=== PATIENT | female | born 1935 | race Caucasian/White ===

== ENCOUNTER 2018-12-06 09:33 | Inpatient (IN) ==
[2018-12-06] MEDS ORDERED: ACETAMINOPHEN 1,000 MG/100 ML VIAL IV ONE (10:02)
[2018-12-06] MEDS ORDERED: SODIUM CHLORIDE 0.9% 500 ML IV SCH (10:15)
[2018-12-06 10:20] LABS: Basophils # (auto) 0.02 K/uL (0-0.2); Basophils % (auto) 0.3 %; Hematocrit (blood only) 26.6 % (37-47); Hemoglobin 8.5 g/dL (12.0-16.0); Immature Granulocytes # (auto) 0.02 K/uL (0.00-0.02); Immature Granulocytes % (auto) 0.3 %; Lymphocytes # (auto) 0.75 K/uL (1.2-3.4); Lymphocytes % (auto) 9.5 %; Mean Corpuscular Volume 94.7 fL (80-100); Mean Platelet Volume 9.7 fL (7.4-10.4); Monocytes # (auto) 0.43 K/uL (0.11-0.59); Monocytes % (auto) 5.4 %; Neutrophils # (auto) 6.68 K/uL (1.4-6.5); Neutrophils % (auto) 84.5 %; Platelet Count 195 K/uL (130-400); RDW Coefficient of Variation 12.7 % (11.5-14.5); Red Blood Count 2.81 M/uL (4.2-5.4)
[2018-12-06 10:36] LABS: Prothrombin Time 9.8 Seconds (9.0-12.0)
[2018-12-06 10:40] LABS: Alanine Aminotransferase 11 U/L (12-78); Albumin Level 3.5 gm/dl (3.4-5.0); Aspartate Aminotransferase 10 U/L (15-37); BUN Creatinine Ratio 13.8 (10-20); Bilirubin Direct 0.2 mg/dl (0-0.2); Blood Urea Nitrogen 19 mg/dl (7-18); Calcium 9.3 mg/dl (8.5-10.1); Carbon Dioxide 32 mmol/L (21-32); Chloride 103 mmol/L (98-107); Creatinine Clr Calc Pharmacy 30.2 ml/min; Est GFR (African American) 41.2; Est GFR (Non-African American) 35.6; Glucose 145 mg/dl (70-99); Magnesium 2.5 mg/dl (1.8-2.4); Potassium 3.6 mmol/L (3.5-5.1); Sodium 138 mmol/L (136-145)
--- NOTE | 2018-12-06 10:43 | XRay Report ---
XR chest 1V portable CLINICAL HISTORY: Chest Pain COMPARISON STUDY: Chest radiograph September 15, 2018. FINDINGS: Lung volumes are mildly diminished. There has been interval development of mild interstitia l pulmonary edema. There is a trace right pleural effusion. There is no pneumothorax. Mild cardiomega ly is noted. There is mild bibasilar opacity. IMPRESSION: Interval development of mild pulmonary edema, trace right pleural effusion and mild bibasilar opaciti es. Electronically signed by: Ashvin Nassar M.D. 12/06/2018 10:42 AM
[2018-12-06 10:49] LABS: Alkaline Phosphatase 107 U/L (45-117); Bilirubin,Total 0.7 mg/dl (0.2-1); Globulin 3.6 gm/dl (2.5-4.0); NT Pro B Type Natriuretic Pept 4277 pg/ml (0-1800); Phosphorus 3.1 mg/dl (2.5-4.9); Total Protein 7.1 gm/dl (6.4-8.2); Troponin I < 0.015 ng/ml (0-0.045)
[2018-12-06 10:52] LABS: RBC Morphology Unremarkable
[2018-12-06 11:10] LABS: Influenza A virus by PCR Neg for Influ A (Neg); Influenza B virus by PCR Neg for Influ B (Neg)
[2018-12-06] MEDS ORDERED: FUROSEMIDE 40 MG/4 ML VIAL IV STA (12:06)
[2018-12-06] MEDS ORDERED: cloNIDine HCl 0.1 MG TAB PO PRN (12:41)
[2018-12-06 13:05] LABS: Iron 34 mcg/dl (35-150); Transferrin 223 mg/dl (200-360)
[2018-12-06] MEDS ORDERED: LISINOPRIL 10 MG TAB PO SCH (14:10)
[2018-12-06] MEDS ORDERED: METOPROLOL SUCC 50MG EXT REL TAB PO SCH (14:10)
[2018-12-06] MEDS ORDERED: ONDANSETRON INJ 2 MG/ML 2 ML VIAL IV PRN (14:10)
[2018-12-06] MEDS ORDERED: ACETAMINOPHEN 325 MG TAB PO PRN (14:10)
[2018-12-06] MEDS ORDERED: FLUTICASONE PROPIONATE NA SPR 16 GM BTL PRN (14:10)
--- NOTE | 2018-12-06 15:27 | Emergency Department Note ---
Entered by Eleni Muñoz acting as a scribe for History of Present Illness General Chief complaint: Weakness Stated complaint: HEADACHE ON LEFT SIDE BEHIND EAR,WEAK,SOB,NO APPET Time Seen by Provider: 12/06/18 09:50 Source: patient History of Present Illness Onset (ago): day(s) 2 Location: upper extremity and lower extremity Pain Consistency: + constant Maximum Pain Intensity: 8 Quality: + other (weakness) Associated symptoms: + denies other symptoms (congestion, diarrhea, urinary symptoms), + fever/chills (Positive chills. Negative fever.), + headaches and + other (increased leg swelling, chronic constipation); no cough and no nausea/ vomiting The patient is an 83 year old female who presents to the Emergency Room with complaints of constant weakness starting 2 days ago. The patient states that she has been feeling weak for 2 days. She states that she called her PCP for an appointment today and they recommended that she come to the ED. She states that she called her daughter and she had to assist her to get to the car. The patient complains of chills, increased leg swelling, and a left sided headache. She notes that she deals with chronic constipation. She states that she has to take a laxative every night. She reports that her last bowel movement was yesterday. The patient denies fever, cough, congestion, nausea, vomiting, diarrhea, and urinary symptoms. The patient notes a history of shingles that went across her abdomen years ago. Home Medications Home Medications Medication Instructions Recorded Confirmed Type aspirin 81 mg PO QPM 09/15/18 12/06/18 History fluticasone 2 spray INTRANASAL DAILY PRN 09/15/18 12/06/18 History iron,carbonyl-vitamin C [Vitron-C] 1 tab PO QAM 09/15/18 12/06/18 History meclizine 12.5 mg PO TID PRN 09/15/18 12/06/18 History metoprolol succinate 50 mg PO QAM 09/15/18 12/06/18 History nitroglycerin 0.4 mg SUBLINGUAL UD PRN 09/15/18 12/06/18 History rosuvastatin 40 mg PO QPM 09/15/18 12/06/18 History cyanocobalamin (vitamin B-12) 1,000 mcg PO QAM 09/20/18 12/06/18 History lisinopril 10 mg PO QAM 09/20/18 12/06/18 History Allergies Allergy/AdvReac Type Severity Reaction Status Date / Time No Known Allergies Allergy Unknown Verified 12/06/18 10:22 Past Med/Surg History Medical History Encounter for pre-operative examination Diarrhea (Acute) Weight loss (Acute) Hypokalemia Hypophosphatemia Hypomagnesemia Chest pain at rest (Acute) Acute renal failure (ARF) (Acute) Chest pain (Acute) DVT prophylaxis (Acute) YUMIKO (acute kidney injury) (Acute) CKD (chronic kidney disease) stage 3, GFR 30-59 ml/min (Chronic) DM type 2 (diabetes mellitus, type 2) (Chronic) CAD (coronary artery disease) (Chronic) Dyslipidemia (Chronic) Hypertension (Chronic) Osteoarthritis (Chronic) Glaucoma (Chronic) Anemia Kidney stones Surgical History History of tonsillectomy and adenoidectomy (Chronic) History of cholecystectomy (Chronic) History of cataract surgery (Chronic) bilt eyes History of appendectomy (Chronic) H/O vein stripping (Chronic) right leg History of bilateral tubal ligation History of cardiac cath 2008 @ [facility]--follows with Dr. Her History of heart artery stent 2008 @ [facility] History of surgery open incision kidney stone removal History of total abdominal hysterectomy and bilateral salpingo-oophorectomy Status post glaucoma surgery bilt eyes Family History Brother Family history of diabetes mellitus multiple Sister Family history of diabetes mellitus multiple Mother Family history of diabetes mellitus Father Family history of diabetes mellitus Other No significant family history Social History Current Living Situation: Alone Other Information That Helps Us Care for You: No Feels Safe at Home: Yes Safety Concerns: Feels Safe At This Time Smoking Status: Never smoker Second Hand Exposure: No Hx Alcohol Use: No Hx Substance Use: No Beliefs That Will Affect Care: None Preferred Language: [place] [employer] Required: No Review of Systems See HPI for pertinent positives & negatives. and A total of 10 systems reviewed and were otherwise negative Physical Exam Vital Signs Vital Signs - 24 hr 12/06/18 09:43 12/06/18 10:12 12/06/18 10:22 Temperature 36.3 C L Temperature Source Oral Sepsis Recent Fever Within 48 Hours No Sepsis New/Unexplained Change in Mental Status No Sepsis Action Taken by Nursing No Action Required Pulse Rate 84 79 Pulse Rate [Right Finger] 79 Pulse Rhythm Regular Pulse Rhythm [Right Finger] Regular Pulse Strength Pulse Strength [Right Finger] Normal Respiratory Rate 18 16 16 Respiratory Effort / Characteristics Non-Labored Respiratory Depth Normal Normal Respiratory Pattern Regular Blood Pressure 205/83 H Blood Pressure [Left Arm] 167/96 H Blood Pressure Mean 123 Blood Pressure Mean [Left Arm] 119 Blood Pressure Position Sitting Blood Pressure Position [Left Arm] Lying Pulse Oximetry 98 95 97 Oxygen Delivery Method Room Air Room Air Room Air 12/06/18 12:07 12/06/18 12:34 12/06/18 14:10 Temperature 36.6 C Temperature Source Oral Sepsis Recent Fever Within 48 Hours Sepsis New/Unexplained Change in Mental Status Sepsis Action Taken by Nursing Pulse Rate Pulse Rate [Right Finger] 77 82 77 Pulse Rhythm Pulse Rhythm [Right Finger] Regular Pulse Strength Pulse Strength [Right Finger] Normal Respiratory Rate 16 16 16 Respiratory Effort / Characteristics Non-Labored Spontaneous Respiratory Depth Normal Respiratory Pattern Regular Blood Pressure Blood Pressure [Left Arm] 179/85 H 187/90 H 184/73 H Blood Pressure Mean Blood Pressure Mean [Left Arm] 116 122 110 Blood Pressure Position Blood Pressure Position [Left Arm] Lying Pulse Oximetry 94 94 96 Oxygen Delivery Method Room Air Room Air Room Air 12/06/18 14:55 12/06/18 16:00 12/06/18 16:42 Temperature 36.7 C Temperature Source Oral Sepsis Recent Fever Within 48 Hours Sepsis New/Unexplained Change in Mental Status Sepsis Action Taken by Nursing Pulse Rate 74 Pulse Rate [Right Finger] 76 75 Pulse Rhythm Pulse Rhythm [Right Finger] Regular Pulse Strength Pulse Strength [Right Finger] Normal Respiratory Rate 18 Respiratory Effort / Characteristics Respiratory Depth Respiratory Pattern Blood Pressure Blood Pressure [Left Arm] 179/83 H 161/75 H Blood Pressure Mean Blood Pressure Mean [Left Arm] 115 103 Blood Pressure Position Blood Pressure Position [Left Arm] Sitting Lying Pulse Oximetry 98 Oxygen Delivery Method Room Air 12/06/18 18:30 12/06/18 19:05 12/06/18 19:19 Temperature 36.7 C 36.7 C 36.6 C Temperature Source Oral Oral Oral Sepsis Recent Fever Within 48 Hours Sepsis New/Unexplained Change in Mental Status Sepsis Action Taken by Nursing Pulse Rate 78 Pulse Rate [Right Finger] 79 Pulse Rhythm Regular Pulse Rhythm [Right Finger] Regular Pulse Strength Normal Pulse Strength [Right Finger] Normal Respiratory Rate 18 Respiratory Effort / Characteristics Non-Labored Respiratory Depth Normal Respiratory Pattern Regular Blood Pressure 177/74 H 171/77 H Blood Pressure [Left Arm] 164/84 H Blood Pressure Mean 108 108 Blood Pressure Mean [Left Arm] 110 Blood Pressure Position Lying Blood Pressure Position [Left Arm] Lying Pulse Oximetry 96 95 Oxygen Delivery Method Room Air 12/06/18 19:22 12/06/18 19:37 12/06/18 19:38 Temperature 36.8 C 36.2 C L 37.0 C Temperature Source Oral Oral Oral Sepsis Recent Fever Within 48 Hours Sepsis New/Unexplained Change in Mental Status Sepsis Action Taken by Nursing Pulse Rate 76 92 H Pulse Rate [Right Finger] 96 H Pulse Rhythm Regular Regular Pulse Rhythm [Right Finger] Pulse Strength Normal Normal Pulse Strength [Right Finger] Respiratory Rate 18 Respiratory Effort / Characteristics Non-Labored Respiratory Depth Normal Respiratory Pattern Blood Pressure 158/72 H 158/94 H Blood Pressure [Left Arm] 158/72 H Blood Pressure Mean 100 115 Blood Pressure Mean [Left Arm] 100 Blood Pressure Position Blood Pressure Position [Left Arm] Sitting Pulse Oximetry 94 Oxygen Delivery Method Room Air 12/06/18 20:07 Temperature 36.7 C Temperature Source Oral Sepsis Recent Fever Within 48 Hours Sepsis New/Unexplained Change in Mental Status Sepsis Action Taken by Nursing Pulse Rate Pulse Rate [Right Finger] Pulse Rhythm Pulse Rhythm [Right Finger] Pulse Strength Pulse Strength [Right Finger] Respiratory Rate Respiratory Effort / Characteristics Respiratory Depth Respiratory Pattern Blood Pressure 169/77 H Blood Pressure [Left Arm] Blood Pressure Mean 107 Blood Pressure Mean [Left Arm] Blood Pressure Position Lying Blood Pressure Position [Left Arm] Pulse Oximetry Oxygen Delivery Method GENERAL: Awake, alert, fatigued appearing, in no distress HENT: Normocephalic, atraumatic. Oropharynx with dry mucous membranes and otherwise unremarkable. EYES: Normal conjunctiva. Sclera non-icteric. NECK: Supple. No nuchal rigidity. FROM. No JVD. RESPIRATORY: Diminished at bases and otherwise clear to auscultation. CARDIAC: Regular rate, normal rhythm. Extremities warm and well perfused. Pulses equal. ABDOMEN: Soft, non-distended. No tenderness to palpation. No rebound or guarding. No masses. RECTAL: Deferred. MUSCULOSKELETAL: Chest examination reveals no tenderness. The back is symmetrical on inspection without obvious abnormality. There is no CVA tenderness to palpation. No joint edema. LOWER EXTREMITIES: Calves are equal size bilaterally and non-tender. Scant lower extremity edema. No discoloration. NEURO: Normal sensorium. No sensory or motor deficits noted. 5/5 strength and SILT x4 extremities. Normal cerebellar function including finger to nose. SKIN: No rash or jaundice noted. Course 0955: Past medical records reviewed. The patient was evaluated in room C2B, and a complete history and physical examination were performed. 1153: I reevaluated the patient and updated her and her family on her test results. I disucssed the treatment plan with them. They verbally agree and understand. 1155: I paged the hospitalist at this time. 1210: I reviewed the patient's case with [facility] He will evaluate the patient for further management. Consultations Consultation #1: I reviewed the patient's case with [facility]. He will evaluate the patient for further management. Time: 12:10 Administered Medications Acetaminophen (Tylenol) 650 mg PO Q4H PRN PRN Reason: Pain or Fever Stop: 01/05/19 14:09 Last Admin: 12/06/18 18:06 Dose: 650 mg Pantoprazole Sodium 40 mg/ (Syringe) 10 mls @ 5 mls/min IV BID [facility] Stop: 01/05/19 13:59 Last Admin: 12/06/18 17:54 Dose: 5 mls/min Furosemide 20 mg/ Syringe 2 mls @ 4 mls/min IV TODAY@1645 [facility] Stop: 12/06/18 23:59 Last Admin: 12/06/18 17:55 Dose: 4 mls/min Lisinopril (Zestril) 10 mg PO QAM [facility] Stop: 01/05/19 14:09 Last Admin: 12/06/18 15:06 Dose: 10 mg Metoprolol Succinate (Toprol Xl) 50 mg PO QAM [facility] Stop: 01/05/19 14:09 Last Admin: 12/06/18 15:06 Dose: 50 mg Miscellaneous (Order Awaiting Action) 1 ea N/A QS [facility] Stop: 01/05/19 15:59 Last Admin: 12/06/18 17:55 Dose: Not Given Discontinued Medications Furosemide (Lasix) 20 mg IV NOW STA Stop: 12/06/18 12:07 Last Admin: 12/06/18 12:34 Dose: 20 mg Sodium Chloride (Nss) 500 mls @ 999 mls/hr IV .Q31M [facility] Stop: 12/06/18 10:45 Last Infusion: 12/06/18 10:44 Dose: 0 mls/hr Admin: 12/06/18 10:09 Dose: 999 mls/hr Acetaminophen (Ofirmev) 1,000 mg in 100 mls @ 400 mls/hr IV NOW ONE Stop: 12/06/18 10:16 Last Infusion: 12/06/18 10:27 Dose: 0 mls/hr Admin: 12/06/18 10:08 Dose: 400 mls/hr Medical Decision Making Differential Diagnosis Differential Diagnoses: Etiologies such as metabolic, infection, hyp/hyperglycemia, electrolyte abnormalities, cardiac sources, intracerebral event, toxicologic, neurologic, as well as others were entertained. Medical Records Attestation: I reviewed the patient's medical records. Home Medications Current Medication List: was personally reviewed by me Laboratory Data Attestation: I reviewed the patient's lab results. Result diagrams: 12/06/18 10:10 12/06/18 10:10 Lab Results 12/06/18 12/06/18 12/06/18 Range/Units 10:10 10:10 10:10 WBC 7.90 (4.8-10.8) K/uL RBC 2.81 L (4.2-5.4) M/uL Hgb 8.5 L (12.0-16.0) g/dL Hct 26.6 L (37-47) % MCV 94.7 (80-100) fL MCH 30.2 (25-34) pg MCHC 32.0 (32-36) g/dL RDW Std Deviation 44.0 (36.4-46.3) fL RDW Coeff of Blanca 12.7 (11.5-14.5) % Plt Count 195 (130-400) K/uL MPV 9.7 (7.4-10.4) fL Immature Gran % (Auto) 0.3 % Neut % (Auto) 84.5 % Lymph % (Auto) 9.5 % [place] % (Auto) 5.4 % Eos % (Auto) 0.0 % Baso % (Auto) 0.3 % Immature Gran # (Auto) 0.02 (0.00-0.02) K/uL Neut # (Auto) 6.68 H (1.4-6.5) K/uL Lymph # (Auto) 0.75 L (1.2-3.4) K/uL [place] # (Auto) 0.43 (0.11-0.59) K/uL Eos # (Auto) 0.00 (0-0.5) K/uL Baso # (Auto) 0.02 (0-0.2) K/uL RBC Morphology Unremarkable PT 9.8 (9.0-12.0) Seconds INR 1.0 (0.9-1.1) Sodium 138 (136-145) mmol/L Potassium 3.6 (3.5-5.1) mmol/L Chloride 103 (98-107) mmol/L Carbon Dioxide 32 (21-32) mmol/L Anion Gap 3.0 (3-11) BUN 19 H (7-18) mg/dl Creatinine 1.37 H (0.6-1.2) mg/dl Est Cr Clr Drug Dosing 30.2 ml/min Est GFR ( Amer) 41.2 Est GFR (Non-Af Amer) 35.6 BUN/Creatinine Ratio 13.8 (10-20) Glucose 145 H (70-99) mg/dl Calcium 9.3 (8.5-10.1) mg/dl Phosphorus 3.1 (2.5-4.9) mg/dl Magnesium 2.5 H (1.8-2.4) mg/dl Iron (35-150) mcg/dl TIBC (250-450) mcg/dl Transferrin (200-360) mg/dl Total Bilirubin 0.7 (0.2-1) mg/dl Direct Bilirubin 0.2 (0-0.2) mg/dl AST 10 L (15-37) U/L ALT 11 L (12-78) U/L Alkaline Phosphatase 107 (45-117) U/L Troponin I < 0.015 (0-0.045) ng/ml NT-Pro-B Natriuret Pep 4277 H (0-1800) pg/ml Total Protein 7.1 (6.4-8.2) gm/dl Albumin 3.5 (3.4-5.0) gm/dl Globulin 3.6 (2.5-4.0) gm/dl Albumin/Globulin Ratio 1.0 (0.9-2) Lipase 143 (73-393) U/L TSH 1.500 (0.300-4.500) uIu/ml Urine Color Urine Appearance (Clear) Urine pH (4.5-7.5) Ur Specific Altura (1.000-1.030) Urine Protein (Negative) Urine Glucose (UA) (Negative) Urine Ketones (Negative) Urine Blood (Negative) Urine Nitrite (Negative) Urine Bilirubin (Negative) Urine Urobilinogen (Negative) Ur Leukocyte Esterase (Negative) Urine WBC (Auto) (0-5) /hpf Urine RBC (Auto) (0-4) /hpf U Hyaline Cast (Auto) (0-5) /lpf U Epithel Cells (Auto) (0-5) /lpf Urine Bacteria (Auto) (Negative) Influenza Type A (PCR) (Neg) Influenza Type B (PCR) (Neg) Blood Type Blood Type Recheck Antibody Screen Crossmatch 12/06/18 12/06/18 12/06/18 Range/Units 10:10 10:20 13:23 WBC (4.8-10.8) K/uL RBC (4.2-5.4) M/uL Hgb (12.0-16.0) g/dL Hct (37-47) % MCV (80-100) fL MCH (25-34) pg MCHC (32-36) g/dL RDW Std Deviation (36.4-46.3) fL RDW Coeff of Blanca (11.5-14.5) % Plt Count (130-400) K/uL MPV (7.4-10.4) fL Immature Gran % (Auto) % Neut % (Auto) % Lymph % (Auto) % [place] % (Auto) % Eos % (Auto) % Baso % (Auto) % Immature Gran # (Auto) (0.00-0.02) K/uL Neut # (Auto) (1.4-6.5) K/uL Lymph # (Auto) (1.2-3.4) K/uL [place] # (Auto) (0.11-0.59) K/uL Eos # (Auto) (0-0.5) K/uL Baso # (Auto) (0-0.2) K/uL RBC Morphology PT (9.0-12.0) Seconds INR (0.9-1.1) Sodium (136-145) mmol/L Potassium (3.5-5.1) mmol/L Chloride (98-107) mmol/L Carbon Dioxide (21-32) mmol/L Anion Gap (3-11) BUN (7-18) mg/dl Creatinine (0.6-1.2) mg/dl Est Cr Clr Drug Dosing ml/min Est GFR ( Amer) Est GFR (Non-Af Amer) BUN/Creatinine Ratio (10-20) Glucose (70-99) mg/dl Calcium (8.5-10.1) mg/dl Phosphorus (2.5-4.9) mg/dl Magnesium (1.8-2.4) mg/dl Iron 34 L (35-150) mcg/dl TIBC 284 (250-450) mcg/dl Transferrin 223 (200-360) mg/dl Total Bilirubin (0.2-1) mg/dl Direct Bilirubin (0-0.2) mg/dl AST (15-37) U/L ALT (12-78) U/L Alkaline Phosphatase (45-117) U/L Troponin I (0-0.045) ng/ml NT-Pro-B Natriuret Pep (0-1800) pg/ml Total Protein (6.4-8.2) gm/dl Albumin (3.4-5.0) gm/dl Globulin (2.5-4.0) gm/dl Albumin/Globulin Ratio (0.9-2) Lipase (73-393) U/L TSH (0.300-4.500) uIu/ml Urine Color Urine Appearance (Clear) Urine pH (4.5-7.5) Ur Specific Alt[place] (1.000-1.030) Urine Protein (Negative) Urine Glucose (UA) (Negative) Urine Ketones (Negative) Urine Blood (Negative) Urine Nitrite (Negative) Urine Bilirubin (Negative) Urine Urobilinogen (Negative) Ur Leukocyte Esterase (Negative) Urine WBC (Auto) (0-5) /hpf Urine RBC (Auto) (0-4) /hpf U Hyaline Cast (Auto) (0-5) /lpf U Epithel Cells (Auto) (0-5) /lpf Urine Bacteria (Auto) (Negative) Influenza Type A (PCR) Neg for Influ A (Neg) Influenza Type B (PCR) Neg for Influ B (Neg) Blood Type A Positive Blood Type Recheck Antibody Screen NEGATIVE Crossmatch See Detail 12/06/18 12/06/18 Range/Units 16:22 18:25 WBC (4.8-10.8) K/uL RBC (4.2-5.4) M/uL Hgb (12.0-16.0) g/dL Hct (37-47) % MCV (80-100) fL MCH (25-34) pg MCHC (32-36) g/dL RDW Std Deviation (36.4-46.3) fL RDW Coeff of Blanca (11.5-14.5) % Plt Count (130-400) K/uL MPV (7.4-10.4) fL Immature Gran % (Auto) % Neut % (Auto) % Lymph % (Auto) % [place] % (Auto) % Eos % (Auto) % Baso % (Auto) % Immature Gran # (Auto) (0.00-0.02) K/uL Neut # (Auto) (1.4-6.5) K/uL Lymph # (Auto) (1.2-3.4) K/uL [place] # (Auto) (0.11-0.59) K/uL Eos # (Auto) (0-0.5) K/uL Baso # (Auto) (0-0.2) K/uL RBC Morphology PT (9.0-12.0) Seconds INR (0.9-1.1) Sodium (136-145) mmol/L Potassium (3.5-5.1) mmol/L Chloride (98-107) mmol/L Carbon Dioxide (21-32) mmol/L Anion Gap (3-11) BUN (7-18) mg/dl Creatinine (0.6-1.2) mg/dl Est Cr Clr Drug Dosing ml/min Est GFR ( Amer) Est GFR (Non-Af Amer) BUN/Creatinine Ratio (10-20) Glucose (70-99) mg/dl Calcium (8.5-10.1) mg/dl Phosphorus (2.5-4.9) mg/dl Magnesium (1.8-2.4) mg/dl Iron (35-150) mcg/dl TIBC (250-450) mcg/dl Transferrin (200-360) mg/dl Total Bilirubin (0.2-1) mg/dl Direct Bilirubin (0-0.2) mg/dl AST (15-37) U/L ALT (12-78) U/L Alkaline Phosphatase (45-117) U/L Troponin I (0-0.045) ng/ml NT-Pro-B Natriuret Pep (0-1800) pg/ml Total Protein (6.4-8.2) gm/dl Albumin (3.4-5.0) gm/dl Globulin (2.5-4.0) gm/dl Albumin/Globulin Ratio (0.9-2) Lipase (73-393) U/L TSH (0.300-4.500) uIu/ml Urine Color Yellow Urine Appearance Clear (Clear) Urine pH 7.5 (4.5-7.5) Ur Specific [place] 1.009 (1.000-1.030) Urine Protein Negative (Negative) Urine Glucose (UA) Negative (Negative) Urine Ketones Negative (Negative) Urine Blood Negative (Negative) Urine Nitrite Negative (Negative) Urine Bilirubin Negative (Negative) Urine Urobilinogen Negative (Negative) Ur Leukocyte Esterase 1+ H (Negative) Urine WBC (Auto) 1-5 (0-5) /hpf Urine RBC (Auto) 0-4 (0-4) /hpf U Hyaline Cast (Auto) 0 (0-5) /lpf U Epithel Cells (Auto) 20-30 H (0-5) /lpf Urine Bacteria (Auto) Negative (Negative) Influenza Type A (PCR) (Neg) Influenza Type B (PCR) (Neg) Blood Type Blood Type Recheck A Positive Antibody Screen Crossmatch Imaging Data Radiologist's Impression: Radiology results as stated below per my review and the radiologist's interpretation: XR chest 1V portable CLINICAL HISTORY: Chest Pain COMPARISON STUDY: Chest radiograph September 15, 2018. FINDINGS: Lung volumes are mildly diminished. There has been interval development of mild interstitial pulmonary edema. There is a trace right pleural effusion. There is no pneumothorax. Mild cardiomegaly is noted. There is mild bibasilar opacity. IMPRESSION: Interval development of mild pulmonary edema, trace right pleural effusion and mild bibasilar opacities. Electronically signed by: Ashvin Nassar M.D. 12/06/2018 10:42 AM ECG Data Attestation: I personally reviewed and interpreted this ECG as follows: Indication: weakness Rate (beats per minute): 79 Rhythm: normal sinus Findings: + other (normal axis); no ST depression, no ST elevation and no acute ischemic change Blood Pressure Blood Pressure Findings: Elevated blood pressure Blood Pressure Disposition: further management by hospitalist NYASIA Whitaker The patient is a pleasant 83-year-old woman with a past medical history of CKD, stage III, CHF with grade 1 diastolic dysfunction who presents emergency department with generalized weakness and RODRIGUES per hpi. On arrival patient is fatigued appearing but no acute distress, afebrile stable vital signs. On exam the patient has scant bilateral lower extremity edema but otherwise appears clinically dry. EKG without evidence of acute ischemia. Chest x-ray with mild pulmonary edema. WBC normal limits. H/H 8.4/26.6 decreased from 9.4/29.4 in September. Patient denies bloody or black stool. Chemistry without acidosis. Creatinine 1.3 within patient's range of CKD. BNP elevated at 4200 without recent for comparison. Patient feeling improved with resolution of RODRIGUES after IV tylenol and IVF hydration. However, given the patient's evidence of pulmonary edema in the setting of elevated BNP patient was given dose of IV Lasix. The patient's symptoms of generalized weakness may be related to slight worsening of the patient's CHF. Of note, the patient had an echo done on April 28, 2018 with normal EF and a grade 1 diastolic dysfunction. Case was discussed with Dr. Barnes, [facility] hospitalist, who will evaluate the patient for admission. Impression & Plan Generalized weakness, Pulmonary edema Discharge Plan Visit Data *Final* Discharge Date/Time: 12/06/18 13:50 Chief Complaint: Weakness Stated Complaint: HEADACHE ON LEFT SIDE BEHIND EAR,WEAK,SOB,NO APPET ED Provider: Brian Chi Discharge Problem: Generalized weakness, Pulmonary edema Patient Disposition: Admitted As Inpatient Discharge Instructions Interventions: ED Discharge Assessment Last Done: 12/06/18 13:50 The scribe's documentation has been prepared under my direction and personally reviewed by me in its entirety. I confirm that the note above accurately reflects all work, treatment, procedures, and medical decision making performed by me.
[2018-12-06] MEDS ORDERED: FUROSEMIDE 20 MG in SYRINGE 0 ML IV SCH (16:45)
[2018-12-06] MEDS: PANTOprazole 40 MG in SYRINGE 0 ML IV SCH ×2 (17:54→21:48)
--- NOTE | 2018-12-06 18:10 | Cardiology Consultation ---
Date of Consultation December 06, 2018 Assessment & Plan (1) Heart failure with preserved ejection fraction: (2) Mitral regurgitation: Patient tells me she has been seen by the undersigned as an outpatient. Unfortunately, the electronic connection to the [facility] outpatient records is not working at the time of this dictation, so I will need to review her pertinent past outside history in the future. At present she is improved symptomatically having received low-dose furosemide. Continue current dose of diuretic therapy. Her mitral regurgitation is at least moderate in severity. Underlying mitral valve prolapse cannot be excluded based on the transthoracic images. Her mitral regurgitation however may be more severe and perhaps this would account for her severe pulmonary hypertension. Ongoing assessment be made as her hospitalization develops. History of Present Illness Attending Physician: Enoc Barnes MD History of Present Illness Corinna Conteh is an 83 year old female seen in cardiology consultation per the request of Dr Barnes of the [facility] service for the evaluation of shortness of breath and orthopnea. The patient states that she has been having worsening shortness of breath for the last 2 weeks. She describes orthopnea that she has not been able to lie flat to go to sleep and therefore she has been sleeping in her chair. She also notices recent ankle and foot edema for the last few weeks. She received a dose of IV furosemide 20 mg today at 12:06 PM. Is tentatively scheduled to get an additional dose later this afternoon and again tomorrow. Allergies Allergy/AdvReac Type Severity Reaction Status Date / Time No Known Allergies Allergy Unknown Verified 12/06/18 10:22 Home Medications Home Medications Medication Instructions Recorded Confirmed Type aspirin 81 mg PO QPM 09/15/18 12/06/18 History fluticasone 2 spray INTRANASAL DAILY PRN 09/15/18 12/06/18 History iron,carbonyl-vitamin C [Vitron-C] 1 tab PO QAM 09/15/18 12/06/18 History meclizine 12.5 mg PO TID PRN 09/15/18 12/06/18 History metoprolol succinate 50 mg PO QAM 09/15/18 12/06/18 History nitroglycerin 0.4 mg SUBLINGUAL UD PRN 09/15/18 12/06/18 History rosuvastatin 40 mg PO QPM 09/15/18 12/06/18 History cyanocobalamin (vitamin B-12) 1,000 mcg PO QAM 09/20/18 12/06/18 History lisinopril 10 mg PO QAM 09/20/18 12/06/18 History Patient History Medical History Encounter for pre-operative examination Diarrhea (Acute) Weight loss (Acute) Hypokalemia Hypophosphatemia Hypomagnesemia Chest pain at rest (Acute) Acute renal failure (ARF) (Acute) Chest pain (Acute) DVT prophylaxis (Acute) YUMIKO (acute kidney injury) (Acute) CKD (chronic kidney disease) stage 3, GFR 30-59 ml/min (Chronic) DM type 2 (diabetes mellitus, type 2) (Chronic) CAD (coronary artery disease) (Chronic) Dyslipidemia (Chronic) Hypertension (Chronic) Osteoarthritis (Chronic) Glaucoma (Chronic) Anemia Kidney stones Surgical History History of tonsillectomy and adenoidectomy (Chronic) History of cholecystectomy (Chronic) History of cataract surgery (Chronic) bilt eyes History of appendectomy (Chronic) H/O vein stripping (Chronic) right leg History of bilateral tubal ligation History of cardiac cath 2009 @ [facility]--follows with Dr. Her History of heart artery stent 2008 @ [facility] History of surgery open incision kidney stone removal History of total abdominal hysterectomy and bilateral salpingo-oophorectomy Status post glaucoma surgery bilt eyes Family History Brother Family history of diabetes mellitus multiple Sister Family history of diabetes mellitus multiple Mother Family history of diabetes mellitus Father Family history of diabetes mellitus Other No significant family history Social History Current Living Situation: Alone Other Information That Helps Us Care for You: No Feels Safe at Home: Yes Safety Concerns: Feels Safe At This Time Smoking Status: Never smoker Second Hand Exposure: No Hx Alcohol Use: No Hx Substance Use: No Beliefs That Will Affect Care: None Preferred Language: [place]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: No Review of Systems Point review of systems is reviewed and is negative with the exception of that above Physical Exam 2 Vital Signs (Past 24 Hours): Last Vital Signs Temp 36.7 C 12/06/18 14:55 Pulse 75 12/06/18 16:42 Resp 18 12/06/18 14:55 BP 161/75 H 12/06/18 16:42 Pulse Ox 98 12/06/18 14:55 Physical Exam: General: no acute distress and stated age, frail, thin Eyes: conjunctiva are pink and non-injected, sclera clear Neck: normal jugular venous pulse, no hepatojugular reflux Chest: normal shape and normal respiratory effort Lungs: Mildly decreased breath sounds the bases Cardiac Exam: - regular heart sounds, II/ systolic murmur Abdomen: abdomen soft, non-tender, no abnormal masses and no hepatosplenomegaly Extremities: no edema and no cyanosis Neuro:awake, coversant, follows commands, no focal motor deficits Psych: appropriate affect and insight. Results & Data Laboratory Results EKG performed earlier today 12/06/18 reviewed independently: Normal sinus rhythm at 79 bpm, normal ST segments. Echocardiogram performed today and reviewed independently: There is mild concentric left ventricular hypertrophy Left ventricular wall motion is normal The left ventricular ejection fraction is normal at 65-70% Moderate severe mitral regurgitation is present, mitral valve prolapse cannot be excluded Mild tricuspid regurgitation is noted Severe pulmonary hypertension is present. The estimated pulmonary artery systolic pressure is 78 mmHg The left atrium is mildly dilated
[2018-12-06 18:51] LABS: Appearance Urine Clear (Clear); Bacteria Urine Automated Negative (Negative); Bilirubin Urine Negative (Negative); Cast Urine Automated 0 /lpf (0-5); Color Urine Yellow; Epithelial Cell Urine Auto 20-30 /lpf (0-5); Glucose Urine UA Negative (Negative); Ketones Urine Negative (Negative); Leukocyte Esterase Urine 1+ (Negative); Nitrite Urine Negative (Negative); Protein Urine Negative (Negative); Specific Gravity Urine 1.009 (1.000-1.030); Urobilinogen Urine Negative (Negative); pH Urine 7.5 (4.5-7.5)
[2018-12-06] MEDS: ROSUVASTATIN CALCIUM 20 MG TAB PO SCH (21:48)
--- NOTE | 2018-12-06 23:17 | History & Physical Report ---
Date of Service December 06, 2018 Assessment & Plan (1) CHF exacerbation: Lasix 20mg IV ordered echo Cardiology consulted monitor diuresis (2) Anemia: Hg 10 to 8 FOBT, Anemia panel hold ASA start Protonix may need GI eval patient is symptomatic 1 unit PRBC ordered with lasix monitor (3) Generalized weakness: secondary to above discussed with patient and her family at length and in detail they are agreeable and comfortable with the plan of care History of Present Illness Primary Care Provider: Tova Pierre 83/f with CAD, DM, HTN, CKD 3, presenting with weakness x 2 weeks. Reports few days history of generalized weakness, dyspnea on exertion as well as dizziness. No fever/chills, chest pain, signs of bleeding. At the ER, received IV Lasix. On exam, patient appeared somewhat weak, states she is slightly better compared to admission Denies active chest pain, dyspnea, palpitations. Allergies Allergy/AdvReac Type Severity Reaction Status Date / Time No Known Allergies Allergy Unknown Verified 12/06/18 10:22 Home Medications Home Medications Medication Instructions Recorded Confirmed Type aspirin 81 mg PO QPM 09/15/18 12/06/18 History fluticasone 2 spray INTRANASAL DAILY PRN 09/15/18 12/06/18 History iron,carbonyl-vitamin C [Vitron-C] 1 tab PO QAM 09/15/18 12/06/18 History meclizine 12.5 mg PO TID PRN 09/15/18 12/06/18 History metoprolol succinate 50 mg PO QAM 09/15/18 12/06/18 History nitroglycerin 0.4 mg SUBLINGUAL UD PRN 09/15/18 12/06/18 History rosuvastatin 40 mg PO QPM 09/15/18 12/06/18 History cyanocobalamin (vitamin B-12) 1,000 mcg PO QAM 09/20/18 12/06/18 History lisinopril 10 mg PO QAM 09/20/18 12/06/18 History furosemide 20 mg PO QAM 30 Days #30 tab 12/08/18 Rx pantoprazole 40 mg PO QAM 30 Days #30 tab 12/08/18 Rx Past Med/Surg History Medical History Encounter for pre-operative examination Diarrhea (Acute) Weight loss (Acute) Hypokalemia Hypophosphatemia Hypomagnesemia Chest pain at rest (Acute) Acute renal failure (ARF) (Acute) Chest pain (Acute) DVT prophylaxis (Acute) YUMIKO (acute kidney injury) (Acute) CKD (chronic kidney disease) stage 3, GFR 30-59 ml/min (Chronic) DM type 2 (diabetes mellitus, type 2) (Chronic) CAD (coronary artery disease) (Chronic) Dyslipidemia (Chronic) Hypertension (Chronic) Osteoarthritis (Chronic) Glaucoma (Chronic) Anemia Kidney stones Surgical History History of tonsillectomy and adenoidectomy (Chronic) History of cholecystectomy (Chronic) History of cataract surgery (Chronic) bilt eyes History of appendectomy (Chronic) H/O vein stripping (Chronic) right leg History of bilateral tubal ligation History of cardiac cath 2009 @ [facility]--follows with Dr. Her History of heart artery stent 2008 @ [facility] History of surgery open incision kidney stone removal History of total abdominal hysterectomy and bilateral salpingo-oophorectomy Status post glaucoma surgery bilt eyes Family History Brother Family history of diabetes mellitus multiple Sister Family history of diabetes mellitus multiple Mother Family history of diabetes mellitus Father Family history of diabetes mellitus Other No significant family history Social History Current Living Situation: Alone Other Information That Helps Us Care for You: No Feels Safe at Home: Yes Safety Concerns: Feels Safe At This Time Smoking Status: Never smoker Second Hand Exposure: No Hx Alcohol Use: No Hx Substance Use: No Beliefs That Will Affect Care: None Preferred Language: Romanian Review of Systems All systems reviewed & are unremarkable except as noted in HPI & below Physical Exam 2 Vital Signs (Past 24 Hours): Last Vital Signs Temp 36.5 C 12/06/18 23:11 Pulse 71 12/06/18 23:11 Resp 18 12/06/18 23:11 BP 120/75 12/06/18 23:11 Pulse Ox 97 12/06/18 23:11 Physical Exam: General- oriented x 3, not in distress, speaks in sentences with no effort or accessory muscle use Head- atraumatic Eyes- PERRL, EOMI, anicteric ENT- oropharynx clear Neck- supple, no JVD, no adenopathy, no thyromegaly; carotids +2/2, no bruits appreciated Lungs- (+) mild rales at the bases, no wheezing Heart- normal rate, regular rhythm; no murmur, no gallop, no rub appreciated Abdomen- normal bowel sounds, nondistended, soft, nontender, no masses or hepatosplenomegaly Extremities- (+) pedal edema, no calf tenderness; peripheral pulses intact Neuro- alert, oriented x 3; CN 2-12 grossly intact; motor 5/5 bilaterally; sensation 100% on all extremities; no other gross focal neurologic deficits Skin- warm & dry Results & Data Laboratory Results Laboratory Results - last 24 hr 12/06/18 12/06/18 12/06/18 10:10 10:10 10:10 WBC 7.90 RBC 2.81 L Hgb 8.5 L Hct 26.6 L MCV 94.7 MCH 30.2 MCHC 32.0 RDW Std Deviation 44.0 RDW Coeff of Blanca 12.7 Plt Count 195 MPV 9.7 Immature Gran % (Auto) 0.3 Neut % (Auto) 84.5 Lymph % (Auto) 9.5 [place] % (Auto) 5.4 Eos % (Auto) 0.0 Baso % (Auto) 0.3 Immature Gran # (Auto) 0.02 Neut # (Auto) 6.68 H Lymph # (Auto) 0.75 L [place] # (Auto) 0.43 Eos # (Auto) 0.00 Baso # (Auto) 0.02 RBC Morphology Unremarkable PT 9.8 INR 1.0 Sodium 138 Potassium 3.6 Chloride 103 Carbon Dioxide 32 Anion Gap 3.0 BUN 19 H Creatinine 1.37 H Est Cr Clr Drug Dosing 30.2 Est GFR ( Amer) 41.2 Est GFR (Non-Af Amer) 35.6 BUN/Creatinine Ratio 13.8 Glucose 145 H Calcium 9.3 Phosphorus 3.1 Magnesium 2.5 H Iron TIBC Transferrin Total Bilirubin 0.7 Direct Bilirubin 0.2 AST 10 L ALT 11 L Alkaline Phosphatase 107 Troponin I < 0.015 NT-Pro-B Natriuret Pep 4277 H Total Protein 7.1 Albumin 3.5 Globulin 3.6 Albumin/Globulin Ratio 1.0 Lipase 143 TSH 1.500 Urine Color Urine Appearance Urine pH Ur Specific [place] Urine Protein Urine Glucose (UA) Urine Ketones Urine Blood Urine Nitrite Urine Bilirubin Urine Urobilinogen Ur Leukocyte Esterase Urine WBC (Auto) Urine RBC (Auto) U Hyaline Cast (Auto) U Epithel Cells (Auto) Urine Bacteria (Auto) Influenza Type A (PCR) Influenza Type B (PCR) Blood Type Blood Type Recheck Antibody Screen Crossmatch 12/06/18 12/06/18 12/06/18 10:10 10:20 13:23 WBC RBC Hgb Hct MCV MCH MCHC RDW Std Deviation RDW Coeff of Blanca Plt Count MPV Immature Gran % (Auto) Neut % (Auto) Lymph % (Auto) [place] % (Auto) Eos % (Auto) Baso % (Auto) Immature Gran # (Auto) Neut # (Auto) Lymph # (Auto) [place] # (Auto) Eos # (Auto) Baso # (Auto) RBC Morphology PT INR Sodium Potassium Chloride Carbon Dioxide Anion Gap BUN Creatinine Est Cr Clr Drug Dosing Est GFR ( Amer) Est GFR (Non-Af Amer) BUN/Creatinine Ratio Glucose Calcium Phosphorus Magnesium Iron 34 L TIBC 284 Transferrin 223 Total Bilirubin Direct Bilirubin AST ALT Alkaline Phosphatase Troponin I NT-Pro-B Natriuret Pep Total Protein Albumin Globulin Albumin/Globulin Ratio Lipase TSH Urine Color Urine Appearance Urine pH Ur Specific [place] Urine Protein Urine Glucose (UA) Urine Ketones Urine Blood Urine Nitrite Urine Bilirubin Urine Urobilinogen Ur Leukocyte Esterase Urine WBC (Auto) Urine RBC (Auto) U Hyaline Cast (Auto) U Epithel Cells (Auto) Urine Bacteria (Auto) Influenza Type A (PCR) Neg for Influ A Influenza Type B (PCR) Neg for Influ B Blood Type A Positive Blood Type Recheck Antibody Screen NEGATIVE Crossmatch See Detail 12/06/18 12/06/18 16:22 18:25 WBC RBC Hgb Hct MCV MCH MCHC RDW Std Deviation RDW Coeff of Blanca Plt Count MPV Immature Gran % (Auto) Neut % (Auto) Lymph % (Auto) [place] % (Auto) Eos % (Auto) Baso % (Auto) Immature Gran # (Auto) Neut # (Auto) Lymph # (Auto) [place] # (Auto) Eos # (Auto) Baso # (Auto) RBC Morphology PT INR Sodium Potassium Chloride Carbon Dioxide Anion Gap BUN Creatinine Est Cr Clr Drug Dosing Est GFR ( Amer) Est GFR (Non-Af Amer) BUN/Creatinine Ratio Glucose Calcium Phosphorus Magnesium Iron TIBC Transferrin Total Bilirubin Direct Bilirubin AST ALT Alkaline Phosphatase Troponin I NT-Pro-B Natriuret Pep Total Protein Albumin Globulin Albumin/Globulin Ratio Lipase TSH Urine Color Yellow Urine Appearance Clear Urine pH 7.5 Ur Specific [place] 1.009 Urine Protein Negative Urine Glucose (UA) Negative Urine Ketones Negative Urine Blood Negative Urine Nitrite Negative Urine Bilirubin Negative Urine Urobilinogen Negative Ur Leukocyte Esterase 1+ H Urine WBC (Auto) 1-5 Urine RBC (Auto) 0-4 U Hyaline Cast (Auto) 0 U Epithel Cells (Auto) 20-30 H Urine Bacteria (Auto) Negative Influenza Type A (PCR) Influenza Type B (PCR) Blood Type Blood Type Recheck A Positive Antibody Screen Crossmatch Code Status & VTE Plan Code Status FULL CODE as per patient
[2018-12-07] MEDS ORDERED: POTASSIUM CHLORIDE 20 MEQ TABCR PO STA ×2 (02:24→04:27)
--- NOTE | 2018-12-07 02:27 | Hospitalist Progress Note ---
Date of Service December 07, 2018 Subjective Made aware by RN of episodic dropped beats on the monitor. Cardiac rate 60s. Patient asymptomatic. Serum potassium = 3.3 Serum creatinine 1.81 from 1.37 (12/06) AP Episodic dropped beats Patient asymptomatic. Cardiac rate on the lower side. ARF, hypokalemia secondary to diuretic Rx Reviewed telemetry strips in a.m. Decrease maintenance beta-vincent dose. Replace potassium, hold diuretic, ACEI for now Will relay to AM provider. Physical Exam 2 Vital Signs (Past 24 Hours): Last Vital Signs Temp 36.5 C 12/06/18 23:11 Pulse 71 12/07/18 00:39 Resp 18 12/06/18 23:11 BP 120/75 12/06/18 23:11 Pulse Ox 97 12/06/18 23:11
[2018-12-07 03:25] LABS: Basophils # (auto) 0.03 K/uL (0-0.2); Basophils % (auto) 0.6 %; Eosinophils # (auto) 0.22 K/uL (0-0.5); Hematocrit (blood only) 29.6 % (37-47); Hemoglobin 9.5 g/dL (12.0-16.0); Lymphocytes # (auto) 1.15 K/uL (1.2-3.4); Lymphocytes % (auto) 21.1 %; Mean Corpuscular Hgb Conc 32.1 g/dL (32-36); Mean Corpuscular Volume 91.6 fL (80-100); Mean Platelet Volume 9.8 fL (7.4-10.4); Monocytes # (auto) 0.46 K/uL (0.11-0.59); Monocytes % (auto) 8.4 %; Neutrophils # (auto) 3.59 K/uL (1.4-6.5); Neutrophils % (auto) 65.9 %; Platelet Count 192 K/uL (130-400); RDW Coefficient of Variation 14.7 % (11.5-14.5); RDW Standard Deviation 49.2 fL (36.4-46.3); Red Blood Count 3.23 M/uL (4.2-5.4); White Blood Count 5.45 K/uL (4.8-10.8)
[2018-12-07 03:40] LABS: BUN Creatinine Ratio 13.9 (10-20); Calcium 9.2 mg/dl (8.5-10.1); Creatinine Clr Calc Pharmacy 22.6 ml/min; Est GFR (African American) 29.4; Est GFR (Non-African American) 25.4; Magnesium 2.3 mg/dl (1.8-2.4); Potassium 3.3 mmol/L (3.5-5.1)
[2018-12-07 03:52] LABS: Folate (Folic Acid) 8.09 ng/ml (>5.38); Vitamin B12 > 2000 pg/ml (211-911)
[2018-12-07] MEDS: METOPROLOL SUCC 25MG EXT REL TAB PO SCH (07:57)
[2018-12-07] MEDS: PANTOprazole 40 MG in SYRINGE 0 ML IV SCH ×2 (07:58→21:05)
[2018-12-07] MEDS ORDERED: FUROSEMIDE 40 MG/4 ML VIAL IV SCH (09:00)
[2018-12-07] MEDS ORDERED: FUROSEMIDE 20 MG in SYRINGE 0 ML IV SCH (09:00)
--- NOTE | 2018-12-07 10:21 | Cardiology Progress Note ---
Date of Service December 07, 2018 Assessment & Plan (1) Acute heart failure with preserved ejection fraction: (2) Mitral regurgitation: Creatinine has trended up. K was low this am. Will repeat BMP now and determine need for further diuretic therapy. Pt has at least moderate MR , new compared to 04/2018 with severe pulmonary HTN, PASP ~70 mm Hg, not otherwise explaned other than HTN and MR. No h/o lung disease, CHELLE, or connective tissue disease. Pt interested in proceeding with NAWAF to further assess. Will plan for this tomorrow. Subjective CC: follow up shortness of breath, orthopnea Subjective: symptoms are improved. Rested poorly overnight, but not due to orthopnea. Telemetry reveals SR. Physical Exam 2 Vital Signs (Past 24 Hours): Last Vital Signs Temp 36.4 C L 12/07/18 07:36 Pulse 91 H 12/07/18 07:36 Resp 18 12/07/18 07:36 BP 167/84 H 12/07/18 07:40 Pulse Ox 96 12/07/18 07:36 Constitutional: + thin; no acute distress Respiratory: normal respiratory effort; no respiratory distress, no labored breathing, no cough and not tachypneic Auscultation: + rales (mild rales at bases) Cardiovascular: Rate/Rhythm: regular rate and regular rhythm Heart Sounds: + murmur (Very soft murmur, less than expected given echo findings ) Vessels : no JVD Gastrointestinal (Abdomen): Percussion/Palpation: abdomen nontender and no guarding Neurologic: moves all extremities and awake; no focal motor deficits
[2018-12-07 11:29] LABS: BUN Creatinine Ratio 14.7 (10-20); Calcium 9.3 mg/dl (8.5-10.1); Creatinine Clr Calc Pharmacy 23.4 ml/min; Est GFR (African American) 31.1; Est GFR (Non-African American) 26.8; Potassium 4.1 mmol/L (3.5-5.1)
--- NOTE | 2018-12-07 15:19 | Hospitalist Progress Note ---
Date of Service December 07, 2018 Assessment & Plan (1) CHF exacerbation: secondary to Valvular Heart Disease, Severe Pulmonary HTN Lasix 20mg IV x 2 ordered with good diureses dyspnea and pedal edema resolved crea 1.7 (baseline 1.2-1.6) echo: severe pulmonary hypertension, mode-severe mitral regurgitation Cardiology consulted hold off on Lasix today, re-evaluate tomorrow NAWAF ordered (2) Anemia: likely from Anemia of CKD, r/o GI bleed component Hg 10 to 8 1 unit transfused, improved to 9 symptoms improved FOBT negative Anemia panel Iron 34 hold ASA started Protonix Nephro consulted for possible initiation of EPO GI consulted for r/o GI bleed component (3) Generalized weakness: secondary to above improving PT/OT eval History of CAD ASA on hold until GI bleed ruled out continue Metoprolol, Statin History of DM not on medications check A1c HTN continue Metoprolol hold Lisinopril CKD 3 monitor while on Lasix DVT prophylaxis SCDs only until GI bleed ruled out Full Code Disposition lives alone at home PT/OT evals Subjective ff up for CHF, anemia seen resting in chair, in good spirits states she feels improved today no dyspnea, chest pain, dizziness ambulated in the halls with no problems no melena/hematochezia no other symptoms Physical Exam 2 Vital Signs (Past 24 Hours): Last Vital Signs Temp 36.7 C 12/07/18 10:58 Pulse 72 12/07/18 10:58 Resp 20 12/07/18 10:58 BP 157/81 H 12/07/18 10:58 Pulse Ox 96 12/07/18 10:58 Physical Exam: General- oriented x 3, not in distress, speaks in sentences with no effort or accessory muscle use Eyes- anicteric Neck- no JVD Lungs- clear breath sounds bilaterally, no rales/wheezes Heart- normal rate, regular rhythm; no murmurs Abdomen- normal bowel sounds, nondistended, soft, nontender Extremities-trace pedal, no calf tenderness Neuro- alert, oriented x 3; no gross focal neurologic deficits Skin- warm & dry Results & Data Laboratory Results Laboratory Results - last 24 hr 12/06/18 12/07/18 12/07/18 13:23 03:05 03:05 WBC 5.45 RBC 3.23 L Hgb 9.5 L Hct 29.6 L MCV 91.6 MCH 29.4 MCHC 32.1 RDW Std Deviation 49.2 H RDW Coeff of Blanca 14.7 H Plt Count 192 MPV 9.8 Immature Gran % (Auto) 0.0 Neut % (Auto) 65.9 Lymph % (Auto) 21.1 [place] % (Auto) 8.4 Eos % (Auto) 4.0 Baso % (Auto) 0.6 Immature Gran # (Auto) 0.00 Neut # (Auto) 3.59 Lymph # (Auto) 1.15 L [place] # (Auto) 0.46 Eos # (Auto) 0.22 Baso # (Auto) 0.03 Sodium 138 Potassium 3.3 L Chloride 100 Carbon Dioxide 32 Anion Gap 6.0 BUN 25 H Creatinine 1.81 H D Est Cr Clr Drug Dosing 22.6 Est GFR ( Amer) 29.4 Est GFR (Non-Af Amer) 25.4 BUN/Creatinine Ratio 13.9 Glucose 154 H Calcium 9.2 Magnesium 2.3 Vitamin B12 Folate Stool Occult Bld Scrn Crossmatch See Detail 12/07/18 12/07/18 12/07/18 03:05 10:29 17:43 WBC RBC Hgb Hct MCV MCH MCHC RDW Std Deviation RDW Coeff of Blanca Plt Count MPV Immature Gran % (Auto) Neut % (Auto) Lymph % (Auto) [place] % (Auto) Eos % (Auto) Baso % (Auto) Immature Gran # (Auto) Neut # (Auto) Lymph # (Auto) [place] # (Auto) Eos # (Auto) Baso # (Auto) Sodium 135 L Potassium 4.1 D Chloride 100 Carbon Dioxide 32 Anion Gap 3.0 BUN 25 H Creatinine 1.73 H Est Cr Clr Drug Dosing 23.4 Est GFR ( Amer) 31.1 Est GFR (Non-Af Amer) 26.8 BUN/Creatinine Ratio 14.7 Glucose 201 H Calcium 9.3 Magnesium Vitamin B12 > 2000 H Folate 8.09 Stool Occult Bld Scrn Negative Crossmatch
[2018-12-07] MEDS: ROSUVASTATIN CALCIUM 20 MG TAB PO SCH (21:05)
[2018-12-08] MEDS ORDERED: fentaNYL citrate 100 MCG/2 ML VIAL ONE (07:06)
[2018-12-08] MEDS ORDERED: PROPOFOL IV EMULSION 10 MG/ML 20 ML VIAL IV ONE (07:08)
[2018-12-08] MEDS ORDERED: LIDOCAINE HCL 2% MPF (LOCAL) 5 ML VIAL INFIL ONE (07:08)
[2018-12-08 07:33] LABS: BUN Creatinine Ratio 15.3 (10-20); Calcium 9.4 mg/dl (8.5-10.1); Creatinine Clr Calc Pharmacy 23.4 ml/min; Est GFR (African American) 30.9; Est GFR (Non-African American) 26.6; Potassium 4.1 mmol/L (3.5-5.1)
--- NOTE | 2018-12-08 07:34 | Anesthesiology Consultation ---
Date of Service December 08, 2018 Acute on chronic CHF (resolving) CKD DM HTN Severe PHTN Severe Mitral Regurg Assessment & Plan (1) Encounter for pre-operative examination: Chart Review Chart Review: Acceptable Risk for Surgery and Patient NOT seen in Pre Admission Testing Consults Requested none ASA ASA4 Proposed Anesthesia Anesthesia Type: MAC Risk / Benefits Reviewed With: PT / POA / Parent / Guardian, Accepts Plan and Informed Consent Obtained NPO Date Last Intake of Fluids: 12/07/18 Time Last Intake of Fluids: 21:33 Date Last Intake of Solids: 12/07/18 Time Last Intake of Solids: 22:33 History Surgery Operation Date: 12/08/18 07:30 Proposed Procedures p Transesophageal Echo w/Anesthesia - Mumtaz Smith DO Height/Weight Height: 5 ft 4 in Weight: 69.1 kg Allergies Allergy/AdvReac Type Severity Reaction Status Date / Time No Known Allergies Allergy Unknown Verified 12/06/18 10:22 Medications Home Medications Medication Instructions Recorded Confirmed Last Taken aspirin 81 mg PO QPM 09/15/18 12/06/18 12/05/18 fluticasone 2 spray INTRANASAL DAILY PRN 09/15/18 12/06/18 12/05/18 iron,carbonyl-vitamin C [Vitron-C] 1 tab PO QAM 09/15/18 12/06/18 12/05/18 meclizine 12.5 mg PO TID PRN 09/15/18 12/06/18 12/05/18 metoprolol succinate 50 mg PO QAM 09/15/18 12/06/18 12/05/18 nitroglycerin 0.4 mg SUBLINGUAL UD PRN 09/15/18 12/06/18 12/05/18 rosuvastatin 40 mg PO QPM 09/15/18 12/06/18 12/05/18 cyanocobalamin (vitamin B-12) 1,000 mcg PO QAM 09/20/18 12/06/18 12/05/18 lisinopril 10 mg PO QAM 09/20/18 12/06/18 12/05/18 Active Medications Generic Name Dose Route Start Last Admin Trade Name Freq PRN Reason Stop Dose Admin Acetaminophen 650 mg 12/06/18 14:10 12/06/18 18:06 Tylenol PO 01/05/19 14:09 650 mg Q4H PRN Administration Pain or Fever Pantoprazole Sodium 40 mg/ 10 mls @ 5 mls/min 12/06/18 14:00 12/07/18 21:05 Syringe IV 01/05/19 13:59 5 mls/min BID HEIDY Administration Lisinopril 10 mg 12/06/18 14:10 12/06/18 15:06 Zestril PO 01/05/19 14:09 10 mg QAM HEIDY Administration Metoprolol Succinate 25 mg 12/07/18 09:00 12/07/18 07:57 Toprol Xl PO 01/06/19 08:59 25 mg QAM HEIDY Administration Miscellaneous 1 ea 12/06/18 16:00 12/08/18 04:32 Order Awaiting Action N/A 01/05/19 15:59 Not Given QS HEIDY Rosuvastatin Calcium 40 mg 12/06/18 21:00 12/07/18 21:05 Crestor PO 01/05/19 20:59 40 mg QPM HEIDY Administration Past Medical History Medical History Encounter for pre-operative examination Diarrhea (Acute) Weight loss (Acute) Hypokalemia Hypophosphatemia Hypomagnesemia Chest pain at rest (Acute) Acute renal failure (ARF) (Acute) Chest pain (Acute) DVT prophylaxis (Acute) YUMIKO (acute kidney injury) (Acute) CKD (chronic kidney disease) stage 3, GFR 30-59 ml/min (Chronic) DM type 2 (diabetes mellitus, type 2) (Chronic) CAD (coronary artery disease) (Chronic) Dyslipidemia (Chronic) Hypertension (Chronic) Osteoarthritis (Chronic) Glaucoma (Chronic) Anemia Kidney stones Past Family History Family History Brother Family history of diabetes mellitus multiple Sister Family history of diabetes mellitus multiple Mother Family history of diabetes mellitus Father Family history of diabetes mellitus Other No significant family history Past Surgical History Surgical History History of tonsillectomy and adenoidectomy (Chronic) History of cholecystectomy (Chronic) History of cataract surgery (Chronic) bilt eyes History of appendectomy (Chronic) H/O vein stripping (Chronic) right leg History of bilateral tubal ligation History of cardiac cath 2008 @ [facility]--follows with Dr. Her History of heart artery stent 2008 @ [facility] History of surgery open incision kidney stone removal History of total abdominal hysterectomy and bilateral salpingo-oophorectomy Status post glaucoma surgery bilt eyes Social History Smoking Status: Never smoker Hx Alcohol Use: No Hx Substance Use: No substance use type: does not use Physical Exam Vital Signs Last Vital Signs Temp 36.6 C 12/08/18 03:49 Pulse 84 12/08/18 03:49 Resp 16 12/08/18 03:49 BP 145/81 H 12/08/18 03:49 Pulse Ox 93 12/08/18 03:49 ENMT Mouth: no TMJ abnormality Thyromental Distance: > or= 3.5 Finger Breadths Mallampati Class: II Neck normal visual inspection Respiratory normal respiratory effort Auscultation: + diminished lung sounds Cardiovascular Rate/Rhythm: regular rate and regular rhythm Heart Sounds: + murmur Musculoskeletal Spine: normal cervical ROM Neurologic moves all extremities Psychiatric Orientation: alert Testing Laboratory Results 12/07/18 03:05 Blood Type A Positive 12/06/18 13:23 Antibody Screen NEGATIVE 12/06/18 13:23 PT 9.8 Seconds (9.0-12.0) 12/06/18 10:10 INR 1.0 (0.9-1.1) 12/06/18 10:10 Urine Color Yellow 12/06/18 18:25 Urine Appearance Clear (Clear) 12/06/18 18:25 Urine pH 7.5 (4.5-7.5) 12/06/18 18:25 Ur Specific [place] 1.009 (1.000-1.030) 12/06/18 18:25 Urine Protein Negative (Negative) 12/06/18 18:25 Urine Glucose (UA) Negative (Negative) 12/06/18 18:25 Urine Ketones Negative (Negative) 12/06/18 18:25 Urine Nitrite Negative (Negative) 12/06/18 18:25 Ur Leukocyte Esterase 1+ (Negative) H 12/06/18 18:25 Urine WBC (Auto) 1-5 /hpf (0-5) 12/06/18 18:25 Urine RBC (Auto) 0-4 /hpf (0-4) 12/06/18 18:25 U Hyaline Cast (Auto) 0 /lpf (0-5) 12/06/18 18:25 U Epithel Cells (Auto) 20-30 /lpf (0-5) H 12/06/18 18:25 Urine Bacteria (Auto) Negative (Negative) 12/06/18 18:25
--- NOTE | 2018-12-08 08:20 | Anesthesiology Progress Note ---
Date of Service December 08, 2018 Anesthesia Post Procedure Vital Signs Vital Signs: Temp Pulse Pulse Resp BP BP Pulse Ox 12/08/18 03:49 36.6 C 84 16 145/81 H 93 12/07/18 23:35 36.9 C 79 18 144/84 H 94 12/07/18 19:24 36.6 C 75 16 144/78 H 97 12/07/18 16:00 68 12/07/18 15:27 36.5 C 88 20 148/80 H 97 12/07/18 10:58 36.7 C 72 20 157/81 H 96 Pain Intensity Bilateral Head: Pain Intensity: 0 Notes Mental Status: alert / awake / arousable Patient Amnestic to Procedure: Yes Nausea / Vomiting: adequately controlled Pain: adequately controlled Airway Patency, RR, SpO2: stable & adequate BP & HR: stable & adequate Hydration State: stable & adequate Anesthetic Complications: no major complications apparent
--- NOTE | 2018-12-08 08:45 | Post Operative Brief Note ---
Cardiology Brief Post Op Date of Surgery December 08, 2018 Pre & Post Diagnosis Preprocedure diagnosis: congestive heart failure, mitral regurgitation, pulmonary hypertension Post procedure diagnosis: Mild mitral regurgitation, mild tricuspid regurgitation, mild pulmonary hypertension Operation Date: 12/08/18 07:30 Procedure end time 8:05 AM Procedure After informed consent was obtained and a timeout was performed the patient was sedated with the assistance of Dr. Clark of anesthesia receiving a total of propofol 180 mg intravenously, fentanyl 50 mcg intravenously, and lidocaine 80 mg intravenously. Mild mitral regurgitation was present. Mild tricuspid regurgitation was present. The estimated pulmonary artery systolic pressure was in the range of 39-44 mmHg by transesophageal echocardiogram measurements, as well as supplementary measurements performed by transthoracic echocardiogram. These measurements are significantly improved compared to the initial transthoracic study performed on 12/07/18. Patient's blood pressure however was well controlled during the transesophageal echocardiogram with systolic blood pressure in the range of 130s to 149 mmHg, which may explain the interval improvement in the mitral regurgitation compared to the transthoracic study yesterday, and the interval improvement in degree of pulmonary hypertension compared to the transthoracic study. The patient tolerated the procedure well. No complications. She is to recover in the cardiac catheterization staging area and then be transferred back to [facility] for ongoing care. Market Intelligence Consultant Mumtaz Smith DO Drive In Theater Attendant Kelly Wheeler, RCS Estimated Blood Loss 0 Findings Consistent with Post-Op Diagnosis Anesthesia Type MAC Complications none Overlapping Procedure I was immediately available: during the entire case.
--- NOTE | 2018-12-08 09:33 | Cardiology Progress Note ---
Date of Service December 08, 2018 Assessment & Plan (1) Acute heart failure with preserved ejection fraction: NAWAF this am revealed only mild mitral regurgitation, mild TR. Mild elevation in the PA systolic pressure of low 40's. BP was better controleld during NAWAF with SBP in the 130-140s mm Hg range , improved compared to admission. Her MR is mild and does not explain her presenting symptoms. Perhaps this was driven by HTN. (2) YUMIKO (acute kidney injury): Given YUMIKO after 2 doses of IV furosemide, will repeat BMP. I anticipate need for outpt oral furosemide, the question is the dose and frequency. Perhaps furosemide 20 mg PO three times per week. Lisinoprol on hold pending results of BMP which is being drawn now at the bedside. Possible DC today, if chemistry panel stable, and BP stable. Subjective CC: follow up shortness of breath Subjective: Pt feeling well, having tolerated NAWAF this am. No orthopnea. Physical Exam 2 Vital Signs (Past 24 Hours): Last Vital Signs Temp 36.6 C 12/08/18 03:49 Pulse 90 12/08/18 09:04 Resp 16 12/08/18 09:04 BP 154/83 H 12/08/18 09:04 Pulse Ox 95 12/08/18 09:04 Constitutional: + thin Respiratory: normal respiratory effort, lungs clear to auscultation Cardiovascular: Rate/Rhythm: regular rate Heart Sounds: + murmur (1/6 SM) Vessels: no JVD Extremities: no edema Gastrointestinal (Abdomen): Percussion/Palpation: abdomen nontender, abdomen not rigid and + abdomen not soft Neurologic: moves all extremities and awake; no focal motor deficits
[2018-12-08 09:42] LABS: Hematocrit (blood only) 31.5 % (37-47); Mean Corpuscular Hgb Conc 31.7 g/dL (32-36); Mean Corpuscular Volume 92.6 fL (80-100); Mean Platelet Volume 9.9 fL (7.4-10.4); Platelet Count 192 K/uL (130-400); RDW Coefficient of Variation 14.3 % (11.5-14.5); RDW Standard Deviation 48.4 fL (36.4-46.3); White Blood Count 6.81 K/uL (4.8-10.8)
[2018-12-08 09:59] LABS: BUN Creatinine Ratio 15.1 (10-20); Calcium 9.5 mg/dl (8.5-10.1); Creatinine Clr Calc Pharmacy 23.7 ml/min; Est GFR (African American) 31.3; Potassium 4.3 mmol/L (3.5-5.1)
--- NOTE | 2018-12-08 10:03 | Gastrointestinal Consultation ---
Date of Consultation December 08, 2018 Assessment & Plan (1) Anemia: 83 year old female with DM, CKD, HTN, CAD s/p drug eluting stent placement who presents through the ED with lower extremity edema, SOB w/ improving symptoms w/ RBC transfusion x 1 - GI evaluating for history of anemia. Denies any acute GI bleed w/o black/bloody stools and she had recent EGD /Colon does not wish to pursue further evaluation. - Pt defers repeat endoscopic evaluation - Agree given recent EGD/Colon and no evidence of acute GIB - PPI 20 mg daily - Would continue supportive measures - Watch H&H - Transfuse PRN - Agree with neprho eval - GI to sign off, please call with any acute changes or concerns. Present on Admission?: Yes Supervising Physician Co-Signing Physician Notes Attending attestation I have seen, examined this patient, and agree with the findings and above by our mid-level provider BARRY Danielle. -Admission with presentation and history consistent with volume overload, chronic anemia in which time underwent EGD and colonoscopy 6 weeks ago without etiology of bleeding. Patient denies any evidence of any acute or chronic GI bleeding. Consider outpatient endoscopy if does not respond to recently added iron therapy. Call with questions History of Present Illness Reason for Consultation: anemia Attending Physician: Elton Bruce MD History of Present Illness 83 year old female with histoy of CKD, T2DM, HTN, chronic anemia, CAD s/p cardiac catheterization, drug eluting stent in 2008 who presents through the ED with complaints of SOB, CP and fluid overload. GI was asked to evaluate the pt given drop in HCT and chronic anemia. She denies any acute GI symptoms. No abd pain. No nausea, vomiting. No black/bloody stools or diarrhea. She notes she recently had EGD/Colon done for similar reason in September. Symptoms improved with RBC transfusion x 1. Denies fever, chills, CP, SOB EGD 2018: Normal esophagus slight though slightly tortuous. Small hiatal hernia.Erythematous mucosa in the stomach with scattered erosions. Biopsied.Normal duodenal bulb and second portion of the duodenum. Colonoscopy 2018: The examined colon appeared normal.Sigmoid diverticulosis.Internal hemorrhoids. Allergies Allergy/AdvReac Type Severity Reaction Status Date / Time No Known Allergies Allergy Unknown Verified 12/06/18 10:22 Home Medications Home Medications Medication Instructions Recorded Confirmed Type aspirin 81 mg PO QPM 09/15/18 12/06/18 History fluticasone 2 spray INTRANASAL DAILY PRN 09/15/18 12/06/18 History iron,carbonyl-vitamin C [Vitron-C] 1 tab PO QAM 09/15/18 12/06/18 History meclizine 12.5 mg PO TID PRN 09/15/18 12/06/18 History metoprolol succinate 50 mg PO QAM 09/15/18 12/06/18 History nitroglycerin 0.4 mg SUBLINGUAL UD PRN 09/15/18 12/06/18 History rosuvastatin 40 mg PO QPM 09/15/18 12/06/18 History cyanocobalamin (vitamin B-12) 1,000 mcg PO QAM 09/20/18 12/06/18 History lisinopril 10 mg PO QAM 09/20/18 12/06/18 History Patient History Medical History Encounter for pre-operative examination Diarrhea (Acute) Weight loss (Acute) Hypokalemia Hypophosphatemia Hypomagnesemia Chest pain at rest (Acute) Acute renal failure (ARF) (Acute) Chest pain (Acute) DVT prophylaxis (Acute) YUMIKO (acute kidney injury) (Acute) CKD (chronic kidney disease) stage 3, GFR 30-59 ml/min (Chronic) DM type 2 (diabetes mellitus, type 2) (Chronic) CAD (coronary artery disease) (Chronic) Dyslipidemia (Chronic) Hypertension (Chronic) Osteoarthritis (Chronic) Glaucoma (Chronic) Anemia Kidney stones Surgical History History of tonsillectomy and adenoidectomy (Chronic) History of cholecystectomy (Chronic) History of cataract surgery (Chronic) bilt eyes History of appendectomy (Chronic) H/O vein stripping (Chronic) right leg History of bilateral tubal ligation History of cardiac cath 2008 @ [facility]--follows with Dr. Her History of heart artery stent 2008 @ [facility] History of surgery open incision kidney stone removal History of total abdominal hysterectomy and bilateral salpingo-oophorectomy Status post glaucoma surgery bilt eyes Family History Brother Family history of diabetes mellitus multiple Sister Family history of diabetes mellitus multiple Mother Family history of diabetes mellitus Father Family history of diabetes mellitus Other No significant family history Social History Current Living Situation: Alone Other Information That Helps Us Care for You: No Feels Safe at Home: Yes Safety Concerns: Feels Safe At This Time Smoking Status: Never smoker Second Hand Exposure: No Hx Alcohol Use: No Hx Substance Use: No Beliefs That Will Affect Care: None Communication Ability: Effective Review of Systems Constitutional: no fever, no chills and no fatigue Respiratory: + dyspnea; no cough and no chest congestion Cardiovascular: no chest pain, no chest pain at rest and no palpitations Gastrointestinal: no abdominal pain, no early satiety, no hematemesis, no blood in stools and no melena Physical Exam 2 Vital Signs (Past 24 Hours): Last Vital Signs Temp 36.6 C 12/08/18 03:49 Pulse 90 12/08/18 09:04 Resp 16 12/08/18 09:04 BP 154/83 H 12/08/18 09:04 Pulse Ox 95 12/08/18 09:04 Constitutional: well nourished; no acute distress Respiratory: no respiratory distress and no labored breathing Auscultation : + crackles (at bilat bases) Cardiovascular: RRR, no murmur, no edema Results & Data Laboratory Results 12/08/18 12/08/18 12/08/18 Range/Units 09:33 09:33 06:30 WBC 6.81 (4.8-10.8) K/uL RBC 3.40 L (4.2-5.4) M/uL Hgb 10.0 L (12.0-16.0) g/dL Hct 31.5 L (37-47) % MCV 92.6 (80-100) fL MCH 29.4 (25-34) pg MCHC 31.7 L (32-36) g/dL RDW Std Deviation 48.4 H (36.4-46.3) fL RDW Coeff of Blanca 14.3 (11.5-14.5) % Plt Count 192 (130-400) K/uL MPV 9.9 (7.4-10.4) fL Sodium 138 138 (136-145) mmol/L Potassium 4.3 4.1 (3.5-5.1) mmol/L Chloride 103 101 (98-107) mmol/L Carbon Dioxide 28 28 (21-32) mmol/L Anion Gap 7.0 9.0 (3-11) BUN 26 H 27 H (7-18) mg/dl Creatinine 1.72 H 1.74 H (0.6-1.2) mg/dl Est Cr Clr Drug Dosing 23.7 23.4 ml/min Est GFR ( Amer) 31.3 30.9 Est GFR (Non-Af Amer) 27.0 26.6 BUN/Creatinine Ratio 15.1 15.3 (10-20) Glucose 150 H 138 H (70-99) mg/dl Calcium 9.5 9.4 (8.5-10.1) mg/dl Stool Occult Bld Scrn (Negative) 12/07/18 12/07/18 Range/Units 17:43 10:29 WBC (4.8-10.8) K/uL RBC (4.2-5.4) M/uL Hgb (12.0-16.0) g/dL Hct (37-47) % MCV (80-100) fL MCH (25-34) pg MCHC (32-36) g/dL RDW Std Deviation (36.4-46.3) fL RDW Coeff of Blanca (11.5-14.5) % Plt Count (130-400) K/uL MPV (7.4-10.4) fL Sodium 135 L (136-145) mmol/L Potassium 4.1 D (3.5-5.1) mmol/L Chloride 100 (98-107) mmol/L Carbon Dioxide 32 (21-32) mmol/L Anion Gap 3.0 (3-11) BUN 25 H (7-18) mg/dl Creatinine 1.73 H (0.6-1.2) mg/dl Est Cr Clr Drug Dosing 23.4 ml/min Est GFR ( Amer) 31.1 Est GFR (Non-Af Amer) 26.8 BUN/Creatinine Ratio 14.7 (10-20) Glucose 201 H (70-99) mg/dl Calcium 9.3 (8.5-10.1) mg/dl Stool Occult Bld Scrn Negative (Negative)
--- NOTE | 2018-12-08 11:10 | Nephrology Consultation ---
Date of Consultation December 08, 2018 Assessment & Plan (1) YUMIKO (acute kidney injury): Patient with acute kidney injury likely due to multifactorial etiology including NSAID use and renal hypoperfusion in setting of diuresis. I have told her to avoid NSAIDs completely going forward. She is currently off KATHRYN inhibitors and diuretics. Creatinine is slightly improving at 1.7 today. Recommend obtaining a renal ultrasound for morphology and ruling out obstructive uropathy. Monitor input output and daily BMP. (2) Anemia: Patient with anemia likely due to chronic blood loss. She is status post blood transfusion. Her iron levels are good. Hemoglobin is improving to 10 now. No role for Epogen in setting of acute kidney injury. (3) Acute heart failure with preserved ejection fraction: Patient was admitted with acute diastolic heart failure which improved with IV Lasix. She will need outpatient diuretics. Suggest Lasix 20 mg p.o. daily from tomorrow. History of Present Illness Reason for Consultation: YUMIKO on CKD Requesting Physician: Elton Bruce MD Attending Physician: Elton Bruce MD History of Present Illness This is a 83-year-old female who with history of type 2 diabetes, hypertension, hyperlipidemia, coronary artery disease status post PCI and stenting in 2008 who was admitted on 12/06/2018 with shortness of breath. She was found to have pulmonary edema on imaging and received IV Lasix. She diuresed well and shortness of breath has markedly improved. Her creatinine on admission was 1.3 but increased to 1.8 yesterday and 1.7 today. She had normal creatinine of 0.7 about 6 months ago. During the admission in August 2018 her creatinine was up to 2.2 but improved to 1.3. She has been taking ibuprofen at home for neck pain. Her blood pressure was on the high side. She never had hypotension. This morning she feels better denies any shortness of breath or chest pain. She has no urinary symptoms such as dysuria hematuria or frequency. Will been asked to evaluate her for etiology and management of her worsening renal function. Allergies Allergy/AdvReac Type Severity Reaction Status Date / Time No Known Allergies Allergy Unknown Verified 12/06/18 10:22 Home Medications Home Medications Medication Instructions Recorded Confirmed Type aspirin 81 mg PO QPM 09/15/18 12/06/18 History fluticasone 2 spray INTRANASAL DAILY PRN 09/15/18 12/06/18 History iron,carbonyl-vitamin C [Vitron-C] 1 tab PO QAM 09/15/18 12/06/18 History meclizine 12.5 mg PO TID PRN 09/15/18 12/06/18 History metoprolol succinate 50 mg PO QAM 09/15/18 12/06/18 History nitroglycerin 0.4 mg SUBLINGUAL UD PRN 09/15/18 12/06/18 History rosuvastatin 40 mg PO QPM 09/15/18 12/06/18 History cyanocobalamin (vitamin B-12) 1,000 mcg PO QAM 09/20/18 12/06/18 History lisinopril 10 mg PO QAM 09/20/18 12/06/18 History Patient History Medical History Encounter for pre-operative examination Diarrhea (Acute) Weight loss (Acute) Hypokalemia Hypophosphatemia Hypomagnesemia Chest pain at rest (Acute) Acute renal failure (ARF) (Acute) Chest pain (Acute) DVT prophylaxis (Acute) YUMIKO (acute kidney injury) (Acute) CKD (chronic kidney disease) stage 3, GFR 30-59 ml/min (Chronic) DM type 2 (diabetes mellitus, type 2) (Chronic) CAD (coronary artery disease) (Chronic) Dyslipidemia (Chronic) Hypertension (Chronic) Osteoarthritis (Chronic) Glaucoma (Chronic) Anemia Kidney stones Surgical History History of tonsillectomy and adenoidectomy (Chronic) History of cholecystectomy (Chronic) History of cataract surgery (Chronic) bilt eyes History of appendectomy (Chronic) H/O vein stripping (Chronic) right leg History of bilateral tubal ligation History of cardiac cath 2008 @ [facility]--follows with Dr. Her History of heart artery stent 2008 @ [facility] History of surgery open incision kidney stone removal History of total abdominal hysterectomy and bilateral salpingo-oophorectomy Status post glaucoma surgery bilt eyes Family History Brother Family history of diabetes mellitus multiple Sister Family history of diabetes mellitus multiple Mother Family history of diabetes mellitus Father Family history of diabetes mellitus Other No significant family history Social History Current Living Situation: Alone Other Information That Helps Us Care for You: No Feels Safe at Home: Yes Safety Concerns: Feels Safe At This Time Smoking Status: Never smoker Second Hand Exposure: No Hx Alcohol Use: No Hx Substance Use: No Beliefs That Will Affect Care: None Communication Ability: Effective Review of Systems All other systems were reviewed and negative except as noted in HPI Physical Exam 2 Vital Signs (Past 24 Hours): Last Vital Signs Temp 36.5 C 12/08/18 10:07 Pulse 91 H 12/08/18 10:07 Resp 19 12/08/18 10:07 BP 143/81 H 12/08/18 10:07 Pulse Ox 95 12/08/18 10:07 Physical Exam: General exam: Appears comfortable, no acute distress HEENT: Pupils are equal and reactive to light Neck: No JVD, neck is supple trachea is midline Respiratory system: Clear breath sounds bilaterally. Gastrointestinal: Abdomen is soft, non distended, non tender, bowel sounds are present CVS: Regular rate and rhythm. No murmurs, rubs or gallops Musculoskeletal: No joint or muscle tenderness Extremities: Non tender, no edema, peripheral pulses are present Neuro: Oriented, no tremors, no focal neurological deficits Skin: No rashes Results & Data Laboratory Results K 4.1, cr 1.7 hb 10
[2018-12-08] MEDS: METOPROLOL SUCC 25MG EXT REL TAB PO SCH (12:54)
[2018-12-08] MEDS: PANTOprazole 40 MG in SYRINGE 0 ML IV SCH (12:55)
--- NOTE | 2018-12-08 14:42 | Ultrasound Report ---
EXAMINATION: RENAL ULTRASOUND CLINICAL HISTORY: YUMIKO, rule out obstruction COMPARISON STUDY: CT scan dated 09/15/2018 FINDINGS: The right kidney measures 9.4 cm. The left kidney measures 9.2 cm. There is no evidence of hydronephrosis. No right-sided renal masses are visualized. There is a 14 mm echogenic lesion withi n the lower pole the left kidney, likely representing an angiomyolipoma. There is a 19 mm echogenic l esion within the upper pole of the left kidney, likely representing a second angiomyolipoma. The left renal jet was not visualized. IMPRESSION : 1. No evidence of hydronephrosis 2. 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 12/08/2018 2:40 PM
[2018-12-08] MEDS ORDERED: LISINOPRIL 10 MG TAB PO SCH (15:15)
--- NOTE | 2018-12-08 15:24 | Hospitalist Progress Note ---
Date of Service December 08, 2018 Assessment & Plan (1) CHF exacerbation: Acute on chronic diastolic congestive heart failure; with valvular heart diseas and pulmonary hypertension -NAWAF this am revealed only mild mitral regurgitation, mild TR. Mild elevation in the PA systolic pressure of low 40's. -patient's dyspnea and pedal edema on this admission has resolved after IV lasix in this hospital admission -Patient should start taking Lasix 20 mg daily at home starting on 12/09/18 and follow up with primary care doctor for repeat basic metabolic panel (2) Anemia: Anemia with history of baseline Hgb of 10 and was found to have Hgb of 8 on this admission and s/p 1unit or PRBC on this admission -Patient evaluated by gastroenterology service and Patient defers repeat endoscopic evaluation -no evidence of acute GI bleed -patient advised to take pantoprazole daily FOBT negative Anemia panel Iron 34 Nephrology service has evaluated and does not deem epogen to be needed at this time follow up CBC by primary care doctor as outpatient (3) Generalized weakness: generalized weakness resolved History of CAD continue Metoprolol, Statin CBC stable and can resume aspirin History of Diabetes Mellitus acceptable blood sugars while in the hospital follow up with primary care doctor Hypertension continue Metoprolol resume Lisinopril Acute Kidney Injury on Chronic Kidney Disease stage III -Patient with acute kidney injury likely due to multifactorial etiology including NSAID use and renal hypoperfusion in setting of diuresis as per nephrology service who have informed the patient to avoid NSAIDs completely going forward. -renal function has stabilized -Patient should start taking Lasix 20 mg daily at home starting on 12/09/18 and follow up with primary care doctor for repeat basic metabolic panel -Renal ultrasound 1. No evidence of hydronephrosis 2. 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 (outpatient follow up of the angiomyolipomas was discussed with patient and her family) Discharge Diagnosis Acute on Chronic diastolic (Congestive) heart failure, Acute Kidney Injury, Anemia Discharge Instructions Patient should start taking Lasix 20 mg daily at home starting on 12/09/18 Patient should take pantoprazole 40 mg daily given patient has anemia Patient should follow up with primary care doctor and have repeat CBC and basic metabolic panel repeated 12/13/2018 2:20 PM Provider Tova Pierre DO Department [facility] 12/27/2018 11:00 AM Provider Mumtaz Smith DO Department Cardiology, [facility] Subjective denies dyspnea, chest pain, or dizziness breathing comfortably on room air denies leg swelling Physical Exam 2 Vital Signs (Past 24 Hours): Last Vital Signs Temp 36.8 C 12/08/18 15:13 Pulse 94 H 12/08/18 15:13 Resp 18 12/08/18 15:13 BP 154/82 H 12/08/18 15:13 Pulse Ox 97 12/08/18 15:13 Constitutional: WD/WN, vitals as above Eyes: PERRL, conjunctivae normal, anicteric sclerae Neck: trachea midline, no thyromegaly Respiratory: normal respiratory effort, lungs clear to auscultation Cardiovascular: Rate/Rhythm: regular rate and regular rhythm Gastrointestinal (Abdomen): normal bowel sounds, soft, nontender, no hepatosplenomegaly Musculoskeletal: no cyanosis or clubbing, extremities motor strength 5/5 Head/Neck/Chest: normocephalic and head atraumatic Neurologic: PERRL, EOMI, accommodation nl, no face palsy, no dysarthria CN' s II-XI intact bilaterally Psychiatric: A+Ox3, euthymic affect
--- NOTE | 2018-12-08 15:42 | Discharge Summary ---
Date of Service December 08, 2018 Admission HPI Per Admitting Provider Reports few days history of generalized weakness, dyspnea on exertion as well as dizziness. Admission Exam Per Admitting Provider General- oriented x 3, not in distress, speaks in sentences with no effort or accessory muscle use Head- atraumatic Eyes- PERRL, EOMI, anicteric ENT- oropharynx clear Neck- supple, no JVD, no adenopathy, no thyromegaly; carotids +2/2, no bruits appreciated Lungs- (+) mild rales at the bases, no wheezing Heart- normal rate, regular rhythm; no murmur, no gallop, no rub appreciated Abdomen- normal bowel sounds, nondistended, soft, nontender, no masses or hepatosplenomegaly Extremities- (+) pedal edema, no calf tenderness; peripheral pulses intact Neuro- alert, oriented x 3; CN 2-12 grossly intact; motor 5/5 bilaterally; sensation 100% on all extremities; no other gross focal neurologic deficits Skin- warm & dry Principal Diagnosis Acute on Chronic diastolic (Congestive) heart failure, Acute Kidney Injury, Anemia Discharge Exam Constitutional WD/WN, vitals as above Eyes PERRL, conjunctivae normal, anicteric sclerae Neck trachea midline, no thyromegaly Respiratory normal respiratory effort, lungs clear to auscultation Cardiovascular Rate/Rhythm: regular rate and regular rhythm Gastrointestinal (Abdomen) normal bowel sounds, soft, nontender, no hepatosplenomegaly Musculoskeletal no cyanosis or clubbing, extremities motor strength 5/5 Head/Neck/Chest: normocephalic and head atraumatic Neurologic PERRL, EOMI, accommodation nl, no face palsy, no dysarthria CN's II-XI intact bilaterally Psychiatric A+Ox3, euthymic affect Discharge Data Allergies Allergy/AdvReac Type Severity Reaction Status Date / Time No Known Allergies Allergy Unknown Verified 12/06/18 10:22 Consultations 12/06/18 12:06 ED Decision to Admit Stat 12/06/18 16:06 Consult Cardiology Routine 12/07/18 15:15 Consult Gastroenterology Routine Consult Nephrology Routine Procedures Performed Operation Date: 12/08/18 07:30 Actual Procedures p Transesophageal Echo w/Anesthesia(Not Applicable) - Mumtaz Smith DO Ordered Studies 12/08/18 11:20 US renal/blad retro comp Routine Hospital Course (1) CHF exacerbation: Acute on chronic diastolic congestive heart failure; with valvular heart diseas and pulmonary hypertension -NAWAF this am revealed only mild mitral regurgitation, mild TR. Mild elevation in the PA systolic pressure of low 40's. -patient's dyspnea and pedal edema on this admission has resolved after IV lasix in this hospital admission -Patient should start taking Lasix 20 mg daily at home starting on 12/09/18 and follow up with primary care doctor for repeat basic metabolic panel (2) Anemia: Anemia with history of baseline Hgb of 10 and was found to have Hgb of 8 on this admission and s/p 1unit or PRBC on this admission -Patient evaluated by gastroenterology service and Patient defers repeat endoscopic evaluation -no evidence of acute GI bleed -patient advised to take pantoprazole daily FOBT negative Anemia panel Iron 34 Nephrology service has evaluated and does not deem epogen to be needed at this time follow up CBC by primary care doctor as outpatient (3) Generalized weakness: generalized weakness resolved History of CAD continue Metoprolol, Statin CBC stable and can resume aspirin History of Diabetes Mellitus acceptable blood sugars while in the hospital follow up with primary care doctor Hypertension continue Metoprolol resume Lisinopril Acute Kidney Injury on Chronic Kidney Disease stage III -Patient with acute kidney injury likely due to multifactorial etiology including NSAID use and renal hypoperfusion in setting of diuresis as per nephrology service who have informed the patient to avoid NSAIDs completely going forward. -renal function has stabilized -Patient should start taking Lasix 20 mg daily at home starting on 12/09/18 and follow up with primary care doctor for repeat basic metabolic panel -Renal ultrasound 1. No evidence of hydronephrosis 2. 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 (outpatient follow up of the angiomyolipomas was discussed with patient and her family) Discharge Diagnosis Acute on Chronic diastolic (Congestive) heart failure, Acute Kidney Injury, Anemia Discharge Instructions Patient should start taking Lasix 20 mg daily at home starting on 12/09/18 Patient should take pantoprazole 40 mg daily given patient has anemia Patient should follow up with primary care doctor and have repeat CBC and basic metabolic panel repeated 12/13/2018 2:20 PM Provider Tova Pierre DO Department [facility] 12/27/2018 11:00 AM Provider Mumtaz Smith DO Department Cardiology, [facility] Total Time Total Time Spent Total Time Spent (In Minutes): 40 minutes Total Time Includes: Examination of the Patient, Discharge Planning and Medication Reconciliation Discharge Plan Discharge Items Patient Disposition: Home - Self-Care Reason For Visit: WEAKNESS Discharge Diagnosis: Acute on Chronic diastolic (Congestive) heart failure, Acute Kidney Injury, Anemia Condition: Good Discharge Goals: Improve disease control Activity: Resume your previous activity Non-emergency contact: Primary Care Provider and Neonatal Specialist Call non-emergency contact if: you have any medication questions Diet: Heart Healthy and Low Sodium (2gm) Addtl Provider Instructions: Patient should start taking Lasix 20 mg daily at home starting on 12/09/18 Patient should take pantoprazole 40 mg daily given patient has anemia Patient should follow up with primary care doctor and have repeat CBC and basic metabolic panel repeated 12/13/2018 2:20 PM Provider Tova Pierre Department [facility] 12/27/2018 11:00 AM Provider Mumtaz Smith Department Cardiology, [facility] Prescriptions: New furosemide 20 mg Tablet 20 mg PO QAM 30 Days Qty: 30 RF: 0 pantoprazole 40 mg Tablet,Delayed Release (Dr/Ec) 40 mg PO QAM 30 Days Qty: 30 RF: 0 Continue metoprolol succinate 50 mg Tablet Extended Release 24 Hr 50 mg PO QAM RF: 0 aspirin 81 mg Tablet,Delayed Release (Dr/Ec) 81 mg PO QPM RF: 0 rosuvastatin 40 mg Tablet 40 mg PO QPM RF: 0 iron,carbonyl-vitamin C [Vitron-C] 65 mg iron- 125 mg Tablet,Delayed Release ( Dr/Ec) 1 tab PO QAM RF: 0 meclizine 12.5 mg Tablet 12.5 mg PO TID PRN (Reason: Dizziness Or Vertigo) RF: 0 nitroglycerin 0.4 mg Tablet, Sublingual 0.4 mg Sublingual UD PRN (Reason: chest pain) RF: 0 fluticasone 50 mcg/actuation [place],Suspension 2 spray INTRANASAL DAILY PRN (Reason: Nasal Congestion) RF: 0 cyanocobalamin (vitamin B-12) 1,000 mcg Tablet 1,000 mcg PO QAM RF: 0 lisinopril 10 mg tablet 10 mg PO QAM RF: 0 Visit Report Forms: My [facility] Stand-Alone Forms: My [facility] Discharge Orders: Discharge Order (Routine); Ordered 12/08/18 Ordered By: Elton Bruce Admission Data Admit Date/Time: 12/06/18 12:40 Attending Provider: Elton Bruce Admit Provider: Enoc Barnes Primary Care Provider: Tova Pierre Other Providers: Terrell Oh ; Huber Pennington ; Mumtaz Smith ; Russell Braxton ; Frandy Crawley ; Filemon Ching ; Aram Her ; Julia Govea ; Margarita Yu ; Gabriela Wise ; Karli Wu ; Sharmaine Soto ; Khoa Teran ; Ziggy Evangelista ; Alyson Peguero ; Sherice Salazar ; Barrera Reyes ; Kavon Salas. ; Arielle Christy ; Oralia Giraldo ; Maribell Taylor ; Cassi Barcenas ; Sayda Lobato ; Sheeba Mercedes ; Zenon Robertson ; Jaida Jensen I ; Dagmar Smith ; Car Plata ; Enoc Barnes Service: Telemetry
[2018-12-08] MEDS ORDERED: PANTOprazole 40 MG TAB PO SCH (21:00)
[2018-12-09] MEDS ORDERED: FUROSEMIDE 20 MG TAB PO SCH (09:00)
[2018-12-09] MEDS ORDERED: PANTOprazole 40 MG TAB PO SCH (09:00)
== END 2018-12-08 16:07 | disposition home or self-care (01) | DRG 291 ==
LOC: ED 09:33 → 2S 12:40 → SUATTDRO 12:40 → 2S 13:50

== ENCOUNTER 2021-10-25 09:29 | Observation (INO) ==
[2021-10-25] MEDS ORDERED: ASPIRIN CHEW 324 MG ONE (09:42)
[2021-10-25] MEDS ORDERED: ASPIRIN CHEW 324 MG PO STA (09:44)
--- NOTE | 2021-10-25 09:49 | Emergency Department Note ---
History of Present Illness General Chief Complaint: Chest Pain Stated Complaint: CHEST PAIN,GOES IN UNDER L ARM,NECK PAIN,HAS STENT Time Seen by Provider: 10/25/21 09:35 History of Present Illness Provider Complaint: chest pain Time: 03:30 Duration: constant Onset: during rest Pain Location: substernal Pain Radiation: LUE Severity: moderate Maximum Pain Intensity: 6 Current Pain Intensity: 6 Quality: + heaviness and + other (Pressure) Relieved By: + rest Exacerbated By: + exertion Context: no recent illness, no recent surgery, no recent immobilization, no recent travel, no trauma/injury, no new medications or no history of DVT/PE Associated symptoms: + dyspnea; no nausea, no vomiting, no diaphoresis, no sense of impending doom, no syncope, no palpitations, no fever, no cough or no leg swelling Related Data On Oral Contraceptives: No Home Medications Medication Instructions Recorded Confirmed Type aspirin 81 mg tablet,delayed 81 mg PO QPM 09/15/18 10/25/21 History release iron,carbonyl 65 mg-vitamin C 125 1 tab PO QAM 09/15/18 10/25/21 History mg tablet,delayed release (Vitron-C) metoprolol succinate 50 mg 50 mg PO QAM 09/15/18 10/25/21 History tablet,extended release 24 hr nitroglycerin 0.4 mg sublingual 0.4 mg SUBLINGUAL UD PRN 09/15/18 10/25/21 History tablet rosuvastatin 40 mg tablet 40 mg PO QPM 09/15/18 10/25/21 History cyanocobalamin (vitamin B-12) 1,000 mcg PO BID 09/20/18 10/25/21 History 1,000 mcg tablet lisinopril 10 mg tablet 10 mg PO QAM 09/20/18 10/25/21 History furosemide 20 mg tablet 20 mg PO QAM 08/01/19 10/25/21 History pantoprazole 40 mg tablet,delayed 40 mg PO QAM 08/01/19 10/25/21 History release linagliptin 5 mg tablet (Tradjenta) 5 mg PO QAM 03/15/21 10/25/21 History acetaminophen 325 mg tablet 325 mg PO QID PRN 07/28/21 10/25/21 History (Tylenol) tramadol 50 mg tablet (Ultram) 50 mg PO Q8H PRN #14 tab 08/06/21 10/25/21 Rx cinnamon bark 500 mg capsule 500 mg PO DAILY 10/25/21 10/25/21 History (Cinnamon) glucosamine sulfate 500 mg tablet 0 mg PO BID 10/25/21 10/25/21 History (Glucosamine) Allergies Allergy/AdvReac Type Severity Reaction Status Date / Time No Known Allergies Allergy Unknown Verified 10/25/21 10:09 Past Med/Surg History Medical History (Updated 10/25/21 @ 11:23 by Bebeto Urena) Acute renal failure (ARF) YUMIKO (acute kidney injury) Anemia CAD (coronary artery disease) Chest pain Chest pain at rest CKD (chronic kidney disease) stage 3, GFR 30-59 ml/min Diarrhea DM type 2 (diabetes mellitus, type 2) DVT prophylaxis Dyslipidemia Encounter for pre-operative examination Glaucoma Hypertension Hypokalemia Hypomagnesemia Hypophosphatemia Kidney stones Osteoarthritis Weight loss Surgical History H/O vein stripping right leg History of appendectomy History of bilateral tubal ligation History of cardiac cath 2008 @ [facility]--follows with Dr. Her History of cataract surgery bilt eyes History of cholecystectomy History of heart artery stent 2008 @ [facility] History of surgery open incision kidney stone removal History of tonsillectomy and adenoidectomy History of total abdominal hysterectomy and bilateral salpingo-oophorectomy Status post glaucoma surgery bilt eyes Family History Brother Family history of diabetes mellitus multiple Sister Family history of diabetes mellitus multiple Mother Family history of diabetes mellitus Father Family history of diabetes mellitus Other No significant family history Social History Smoking Status: Never smoker Second Hand Exposure: No; Hx Alcohol Use: No Hx Substance Use: No Preferred Language: Chilean Communication Ability: Effective Thread Trimmer Required: No Beliefs That Will Affect Care: None Current Living Situation: Alone Feels Safe at Home: Yes Assistive Devices: Glasses Review of Systems A total of 10 systems reviewed and were otherwise negative Physical Exam Vital Signs Vital Signs - 24 hr 10/25/21 09:31 10/25/21 09:40 10/25/21 10:08 Temperature 36.1 C L Temperature Source Temporal Artery Scan Pulse Rate 69 63 Pulse Rate [Right Finger] 68 Pulse Rhythm [Right Finger] Regular Pulse Strength [Right Finger] Normal Respiratory Rate 18 18 20 Respiratory Effort / Characteristics Non-Labored Spontaneous Non-Labored Spontaneous Respiratory Depth Normal Normal Respiratory Pattern Regular Blood Pressure 139/63 Blood Pressure [Right Arm] 107/47 L Blood Pressure Mean 88 Blood Pressure Mean [Right Arm] 67 Blood Pressure Position [Right Arm] Sitting Pulse Oximetry 98 100 97 Oxygen Delivery Method Room Air Room Air Room Air Sepsis Recent Fever Within 48 Hours No Sepsis New/Unexplained Change in Mental Status No Sepsis Action Taken by Nursing No Action Required Physical Exam GENERAL: She is oriented to person, place, and time. She appears well-developed and well-nourished. She does not appear distressed. HENT: Exam performed. -Head: Normocephalic and atraumatic. -Right Ear: External ear normal. No mastoid tenderness. -Left Ear: External ear normal. No mastoid tenderness. -Mouth/Throat: The oropharynx is clear and moist. No trismus in the jaw. No dental abscesses or uvula swelling. No oropharyngeal exudate or tonsillar abscesses. EYES: Conjunctivae and EOM are normal. Pupils are equal, round, and reactive to light. Right eye exhibits no discharge. Left eye exhibits no discharge. No scleral icterus. NECK: Normal range of motion. Neck supple. No JVD present. No spinous process tenderness present. No carotid bruit present. No rigidity. No tracheal deviation and normal range of motion present. No Brudzinski's sign and no Kernig's sign noted. CV: Normal rate, regular rhythm, normal heart sounds and intact distal pulses. There is no peripheral edema. Palpable radial pulses bue. PULM/CHEST: Effort normal and breath sounds normal. No respiratory distress. No stridor. She has no wheezes. She has no rales. -Chest Wall: She exhibits no tenderness. ABD: The abdomen is soft. Bowel sounds are normal. She has no distension. No mass is present. There is no tenderness. There is no rebound, no guarding, no Jacques's sign and no tenderness at McBurney's point. Rovsig negative MUSC/SKEL: Normal range of motion. There is no peripheral edema, tenderness or deformity. LYMPH: No cervical adenopathy. NEURO: She is alert and oriented to person, place, and time. She has normal strength. No cranial nerve deficit or sensory deficit. Coordination and gait normal. GCS eye subscore is 4. GCS verbal subscore is 5. GCS motor subscore is 6. Cerebellar tests wnl. SKIN: Skin is warm and dry. She is not diaphoretic. PSYCH: She has a normal mood and affect. Behavior is normal. Judgment and thought content normal. Course Course 934: The patient was evaluated in room B6. A complete history and physical exam was performed Cardiac monitoring: An order was placed for continuous cardiac monitoring. The monitor shows a rate of 60 with sinus rhythm 1122: Vital signs stable. Patient reports her chest pain has improved significantly with 1 sublingual nitro. She states he went down to 3 out of 10. Patient was given additional sublingual nitro. Labs and imaging are within normal limits. Patient will be admitted to the [facility] Hospitalist team for chest pain rule out ACS evaluation. Administered Medications Sodium Chloride (Nss) 500 mls @ 125 mls/hr IV .Q4H [facility] Stop: 11/24/21 09:44 Last Admin: 10/25/21 10:01 Dose: 125 mls/hr Documented by: [id number] Nitroglycerin (Nitroglycerin Sl 0.4 Mg/Tab Tab) 0.4 mg SL UD PRN PRN Reason: Chest Pain Stop: 11/24/21 09:43 Last Admin: 10/25/21 11:05 Dose: 0.4 mg Documented by: [id number] Admin: 10/25/21 10:00 Dose: 0.4 mg Documented by: [id number] Discontinued Medications Aspirin (Aspirin Chew 324 Mg) Confirm Administered Dose 324 mg .ROUTE .STK-MED ONE Stop: 10/25/21 09:43 Last Admin: 10/25/21 09:46 Dose: 324 mg Documented by: [id number] Aspirin (Aspirin Chew 324 Mg) 324 mg PO NOW STA Stop: 10/25/21 09:45 Last Admin: 10/25/21 09:53 Dose: Not Given Documented by: [id number] Medical Decision Making Laboratory Data Result diagrams: 10/25/21 09:45 10/25/21 09:45 Labs: Lab Results 10/25/21 10/25/21 10/25/21 Range/Units 09:45 09:45 09:45 WBC 6.25 (4.8-10.8) K/uL RBC 3.68 L (4.2-5.4) M/uL Hgb 11.0 L (12.0-16.0) g/dL Hct 34.5 L (37-47) % MCV 93.8 (80-100) fL MCH 29.9 (25-34) pg MCHC 31.9 L (32-36) g/dL RDW Std Deviation 45.4 (36.4-46.3) fL RDW Coeff of Blanca 13.1 (11.5-14.5) % Plt Count 182 (130-400) K/uL MPV 10.0 (7.4-10.4) fL Immature Gran % (Auto) 0.0 % Neut % (Auto) 78.8 % Lymph % (Auto) 12.0 % [place] % (Auto) 7.4 % Eos % (Auto) 1.8 % Baso % (Auto) 0.0 % Neut # (Auto) 4.93 (1.4-6.5) K/uL Lymph # (Auto) 0.75 L (1.2-3.4) K/uL [place] # (Auto) 0.46 (0.11-0.59) K/uL Eos # (Auto) 0.11 (0-0.5) K/uL Baso # (Auto) 0.00 (0-0.2) K/uL Immature Gran # (Auto) 0.00 (0.00-0.02) K/uL PT 9.4 (9.0-12.0) Seconds INR 0.9 (0.9-1.1) APTT 24.3 (21.0-31.0) Seconds PTT Ratio 0.9 Sodium 137 (136-145) mmol/L Potassium 4.5 (3.5-5.1) mmol/L Chloride 107 (98-107) mmol/L Carbon Dioxide 26 (21-32) mmol/L Anion Gap 4.0 (3-11) BUN 25 H (7-18) mg/dl Creatinine 1.56 H (0.6-1.2) mg/dl Est Cr Clr Drug Dosing 25.2 ml/min Est GFR ( Amer) 34.5 ml/min Est GFR (Non-Af Amer) 29.8 ml/min BUN/Creatinine Ratio 15.8 (10-20) Glucose 225 H (70-99) mg/dl Calcium 9.6 (8.5-10.1) mg/dl Troponin I < 0.015 (0-0.045) ng/ml Lipase 295 (73-393) U/L Imaging Data Chest x-ray: Radiologist's impression: Chest X-Ray 10/25/21 09:44 XR chest 1V portable HISTORY: Atypical Chest Pain COMPARISON: Chest 03/15/2021. FINDINGS: The lungs are clear. The heart is normal in size. No pleural effusions. No pneumothorax. Old, healed right midshaft clavicle fracture. Calcified left thyroid nodule remains stable. IMPRESSION: No significant change compared to the prior study. No acute process. ACT 112: Negative or not required by law. Electronically signed by: Sam Billy M.D. 10/25/2021 10:22 AM ECG Data Indication: chest pain Rate (beats per minute): 65 Rhythm: normal sinus Findings: no ST depression, no ST elevation or no prolonged QT Additional Comments: OR QRS and QTc intervals are within normal limits. [facility] Narrative 0935: The patient was evaluated in room B6. A complete history and physical exam was performed Cardiac monitoring: An order was placed for continuous cardiac monitoring. The monitor shows a rate of 60 with sinus rhythm 1122: Vital signs stable. Patient reports her chest pain has improved significantly with 1 sublingual nitro. She states he went down to 3 out of 10. Patient was given additional sublingual nitro. Labs and imaging are within normal limits. Patient will be admitted to the [facility] hospitalist team for chest pain rule out ACS evaluation. Impression & Plan Chest pain Discharge Plan Visit Data Chief Complaint: Chest Pain Stated Complaint: CHEST PAIN,GOES IN UNDER L ARM,NECK PAIN,HAS STENT Discharge Problem: Chest pain Patient Disposition: Being Evaluated by Hospitalist Forms Stand Alone Forms: My [facility] [employer] Prescriptions Prescriptions: No Action metoprolol succinate 50 mg Tablet Extended Release 24 Hr 50 mg PO QAM RF: 0 aspirin 81 mg Tablet,Delayed Release (Dr/Ec) 81 mg PO QPM RF: 0 rosuvastatin 40 mg Tablet 40 mg PO QPM RF: 0 Vitron-C 65 mg iron- 125 mg Tablet,Delayed Release (Dr/Ec) 1 tab PO QAM RF: 0 nitroglycerin 0.4 mg Tablet, Sublingual 0.4 mg Sublingual UD PRN (Reason: chest pain) RF: 0 pantoprazole 40 mg tablet,delayed release (DR/EC) 40 mg PO QAM RF: 0 furosemide 20 mg tablet 20 mg PO QAM RF: 0 cyanocobalamin (vitamin B-12) 1,000 mcg Tablet 1,000 mcg PO BID RF: 0 lisinopril 10 mg tablet 10 mg PO QAM RF: 0 glucosamine sulfate [Glucosamine] 500 mg Tablet 0 mg PO BID RF: 0 cinnamon bark [Cinnamon] 500 mg Capsule 500 mg PO DAILY RF: 0 Tradjenta 5 mg tablet 5 mg PO QAM RF: 0 acetaminophen [Tylenol] 325 mg Tablet 325 mg PO QID PRN (Reason: Pain) RF: 0 tramadol [Ultram] 50 mg tablet 50 mg PO Q8H PRN (Reason: pain) Qty: 14 RF: 0 Referrals Referrals: Tova Pierre DO [Primary Care Provider] -
[2021-10-25 09:56] LABS: Eosinophils # (auto) 0.11 K/uL (0-0.5); Eosinophils % (auto) 1.8 %; Hematocrit (blood only) 34.5 % (37-47); Lymphocytes # (auto) 0.75 K/uL (1.2-3.4); Mean Corpuscular Hemoglobin 29.9 pg (25-34); Mean Corpuscular Hgb Conc 31.9 g/dL (32-36); Mean Corpuscular Volume 93.8 fL (80-100); Monocytes # (auto) 0.46 K/uL (0.11-0.59); Monocytes % (auto) 7.4 %; Neutrophils # (auto) 4.93 K/uL (1.4-6.5); Neutrophils % (auto) 78.8 %; Platelet Count 182 K/uL (130-400); RDW Coefficient of Variation 13.1 % (11.5-14.5); RDW Standard Deviation 45.4 fL (36.4-46.3); Red Blood Count 3.68 M/uL (4.2-5.4); White Blood Count 6.25 K/uL (4.8-10.8)
[2021-10-25] MEDS: NITROGLYCERIN SL 0.4 MG/TAB TAB SL PRN ×2 (10:00→11:05)
[2021-10-25] MEDS: SODIUM CHLORIDE 0.9% 500 ML IV SCH ×2 (10:01→14:07)
[2021-10-25 10:08] LABS: INR 0.9 (0.9-1.1); Partial Thromboplastin Ratio 0.9; Partial Thromboplastin Time 24.3 Seconds (21.0-31.0); Prothrombin Time 9.4 Seconds (9.0-12.0)
[2021-10-25 10:20] LABS: BUN Creatinine Ratio 15.8 (10-20); Blood Urea Nitrogen 25 mg/dl (7-18); Calcium 9.6 mg/dl (8.5-10.1); Carbon Dioxide 26 mmol/L (21-32); Chloride 107 mmol/L (98-107); Creatinine Clr Calc Pharmacy 25.2 ml/min; Est GFR (African American) 34.5 ml/min; Est GFR (Non-African American) 29.8 ml/min; Glucose 225 mg/dl (70-99); Lipase 295 U/L (73-393); Potassium 4.5 mmol/L (3.5-5.1); Sodium 137 mmol/L (136-145)
[2021-10-25 10:24] LABS: Troponin I < 0.015 ng/ml (0-0.045)
--- NOTE | 2021-10-25 10:24 | XRay Report ---
XR chest 1V portable HISTORY: Atypical Chest Pain COMPARISON: Chest 03/15/2021. FINDINGS: The lungs are clear. The heart is normal in size. No pleural effusions. No pneumothorax. Ol d, healed right midshaft clavicle fracture. Calcified left thyroid nodule remains stable. IMPRESSION: No significant change compared to the prior study. No acute process. ACT 112: Negative or not required by law. Electronically signed by: Sam Billy M.D. 10/25/2021 10:22 AM
--- NOTE | 2021-10-25 13:19 | History & Physical Report ---
Date of Service October 25, 2021 Assessment & Plan (1) Chest pain: (2) CAD (coronary artery disease): Plan: -Admit to telemetry -Patient presenting from home with reports of left neck/left-sided chest/left arm pain. Symptoms resolved with nitro x 2 in ED. Noted that left-sided chest pain is reproducible on exam. -Initial troponin negative, EKG without acute ST changes. -History of CAD: FABIENNE to LAD in 2008 and cardiac cath 06/2010 revealed mild in stent restenosis with 50% stenosis elsewhere -Continue to trend troponin -Continue ASA, statin, beta-vincent -Cardiology consult, case discussed with Dr. Smith (3) Chronic diastolic CHF (congestive heart failure): Plan: -Appears euvolemic, continue home dose of furosemide (4) Hypertension: Plan: -BP controlled, continue lisinopril and metoprolol (5) CKD (chronic kidney disease) stage 3, GFR 30-59 ml/min: Plan: -Baseline creatinine runs in the high 1's -Creatinine 1.5 today -Monitor renal functions (6) DVT prophylaxis: Plan: -SQ heparin Plan: Attending Addendum: care coordinated with BARRY Olmstead please refer to her notes for full details, I agree with her notes patient seen and examined, records reviewed by myself as well on exam, patient seen resting in bed, comfortable chest pain free no other symptoms VS noted and reviewed oriented x 3 , not in distress, speaks in sentences with no effort nor accessory muscle use normal rate, regular rhythm, no murmurs clear breath sounds bilaterally non distended, soft, nontender no bipedal edema, erythema, warmth no neuro deficits WBC 6.25 Hg 11 Crea 1.5 ASSESSMENT AND PLAN CHEST PAIN R/O ACS initial trop negative EKG no signs of acute ischemia echo no wall motion abnormalities trend troponins continue usual ASA, Metoprolol, Lisinopril CHF CHRONIC euvolemic other diagnoses and plan of care as per BARRY Olmstead's notes Enoc Barnes MD History of Present Illness Chief Complaint: Chest pain Primary Care Provider: Tova Pierre DO 86-year-old female with PMH DM type II, HTN, CKD stage III, CAD, chronic diastolic CHF, GERD, and other problems listed below who presents the ED for evaluation of chest pain. Patient reports she developed a left-sided neck pain yesterday that radiated down into the left side of her chest and down to her left arm. She reports pain was worse with exertion and movement. This morning, while preparing her breakfast the pain got acutely worse so she presented to the ED for further evaluation. Patient did not take any sublingual nitroglycerin at home. She denies associated shortness of breath, diaphoresis, nausea, lightheadedness, syncopal event. Reports she otherwise has been feeling well recently. Denies lower extremity edema and orthopnea. No fevers or chills. Denies abdominal pain, vomiting, diarrhea. No urinary symptoms. In the ED, patient received 2 sublingual nitroglycerin with complete resolution of her symptoms. Initial troponin is negative and EKG is nonischemic appearing. Patient is hemodynamically stable. She also received a full dose aspirin and IVF. Allergies Allergy/AdvReac Type Severity Reaction Status Date / Time No Known Allergies Allergy Unknown Verified 10/25/21 10:09 Home Medications Medication Instructions Recorded Confirmed Type aspirin 81 mg tablet,delayed 81 mg PO QPM 09/15/18 10/25/21 History release iron,carbonyl 65 mg-vitamin C 125 1 tab PO QAM 09/15/18 10/25/21 History mg tablet,delayed release (Vitron-C) metoprolol succinate 50 mg 50 mg PO QAM 09/15/18 10/25/21 History tablet,extended release 24 hr nitroglycerin 0.4 mg sublingual 0.4 mg SUBLINGUAL UD PRN 09/15/18 10/25/21 History tablet rosuvastatin 40 mg tablet 40 mg PO QPM 09/15/18 10/25/21 History cyanocobalamin (vitamin B-12) 1,500 mcg PO DAILY 09/20/18 10/25/21 History 1,000 mcg tablet lisinopril 10 mg tablet 10 mg PO QAM 09/20/18 10/25/21 History furosemide 20 mg tablet 20 mg PO QAM 08/01/19 10/25/21 History pantoprazole 40 mg tablet,delayed 40 mg PO QAM 08/01/19 10/25/21 History release linagliptin 5 mg tablet (Tradjenta) 5 mg PO QAM 03/15/21 10/25/21 History glucosamine sulfate 500 mg tablet 1,000 mg PO DAILY 10/25/21 10/25/21 History (Glucosamine) magnesium 250 mg tablet 250 mg PO DAILY 10/25/21 10/25/21 History sertraline 25 mg tablet 25 mg PO DAILY 10/25/21 10/25/21 History Past Med/Surg History Medical History Anemia CAD (coronary artery disease) 2009 - FABIENNE to LAD Chronic diastolic CHF (congestive heart failure) CKD (chronic kidney disease) stage 3, GFR 30-59 ml/min DM type 2 (diabetes mellitus, type 2) Dyslipidemia Glaucoma Hypertension Kidney stones Osteoarthritis Surgical History H/O vein stripping right leg History of appendectomy History of bilateral tubal ligation History of cardiac cath 2008 @ [facility]--follows with Dr. Her History of cataract surgery bilt eyes History of cholecystectomy History of heart artery stent 2008 @ [facility] History of surgery open incision kidney stone removal History of tonsillectomy and adenoidectomy History of total abdominal hysterectomy and bilateral salpingo-oophorectomy Status post glaucoma surgery bilt eyes Family History Brother Family history of diabetes mellitus multiple Sister Family history of diabetes mellitus multiple Mother Family history of diabetes mellitus Father Family history of diabetes mellitus Other No significant family history Social History Smoking Status: Never smoker Second Hand Exposure: No; Do You Dip or Chew Tobacco: No; Tobacco Cessation Education Requested by Patient: No Hx Alcohol Use: No Hx Substance Use: No Preferred Language: German Communication Ability: Effective Pocket Cutter Required: No Beliefs That Will Affect Care: None Current Living Situation: Skilled Nursing Other Information That Helps Us Care for You: No Feels Safe at Home: Yes Assistive Devices: Hearing Aid - Bilateral Review of Systems Review of Systems: ROS per HPI, all other systems reviewed and negative Physical Exam Constitutional: WD/WN, vitals as above Eyes: PERRL, conjunctivae normal, anicteric sclerae ENMT: external ear and nose normal, oropharynx normal Ears: + hearing impairment Respiratory: normal respiratory effort, lungs clear to auscultation Cardiovascular: Rate/Rhythm: regular rate and regular rhythm Vessels: normal peripheral pulses Extremities: no edema Chest (Breasts): Additional Comments: Left chest wall tender to palpation Gastrointestinal (Abdomen): normal bowel sounds, soft, nontender, no hepatosplenomegaly Musculoskeletal: no cyanosis or clubbing, extremities motor strength 5/5 Skin: no rashes, warm and dry Neurologic: PERRL, EOMI, accommodation nl, no face palsy, no dysarthria Psychiatric: A+Ox3, euthymic affect Results & Data Results & Data ([facility]) Vital Signs (Past 12 Hours) Vital Signs Temp Pulse Pulse Resp BP BP Pulse Ox 10/25/21 11:30 61 18 132/73 98 10/25/21 10:08 68 20 107/47 L 97 10/25/21 09:40 63 18 100 10/25/21 09:31 36.1 C L 69 18 139/63 98 Laboratory Results Short CBC 10/25/21 Range/Units 09:45 WBC 6.25 (4.8-10.8) K/uL Hgb 11.0 L (12.0-16.0) g/dL Hct 34.5 L (37-47) % Plt Count 182 (130-400) K/uL BMP 10/25/21 09:45 Sodium 137 Potassium 4.5 Chloride 107 Carbon Dioxide 26 BUN 25 H Creatinine 1.56 H Glucose 225 H Calcium 9.6 Cardiac Enzymes 10/25/21 Range/Units 09:45 Troponin I < 0.015 (0-0.045) ng/ml Diagnostic Findings Chest X-Ray 10/25/21 09:44 XR chest 1V portable HISTORY: Atypical Chest Pain COMPARISON: Chest 03/15/2021. FINDINGS: The lungs are clear. The heart is normal in size. No pleural effusions. No pneumothorax. Old, healed right midshaft clavicle fracture. Calcified left thyroid nodule remains stable. IMPRESSION: No significant change compared to the prior study. No acute process. ACT 112: Negative or not required by law. Electronically signed by: Sam Billy M.D. 10/25/2021 10:22 AM Code Status & VTE Plan Code Status Patient is a full code as per my discussion with her. VTE Prophylaxis Plan VTE Prophylaxis will be ordered: Yes (1) CAD (coronary artery disease) Associated angina: with unspecified angina Coronary Disease-Associated Artery/Lesion type: [place] artery [place] vs. transplanted heart: [place] heart Qualified Code(s): I25.119 - Atherosclerotic heart disease of [place] coronary artery with unspecified angina pectoris
--- NOTE | 2021-10-25 15:10 | Electrocardiogram Report ---
Test Reason : Blood Pressure : / mmHG Vent. Rate : 065 BPM Atrial Rate : 065 BPM P-R Int : 156 ms QRS Dur : 088 ms QT Int : 414 ms P-R-T Axes : 067 -37 044 degrees QTc Int : 430 ms Normal sinus rhythm with sinus arrhythmia Left axis deviation Low voltage QRS Abnormal ECG When compared with ECG of 15-MAR-2021 21:57, No significant change was found Confirmed by Barrera Pool ([id number]) on 10/25/2021 3:10:45 PM Referred By: REFERRED SELF Confirmed By:Barrera Pool
[2021-10-25] MEDS ORDERED: ACETAMINOPHEN 325 MG TAB PO PRN (16:18)
[2021-10-25] MEDS ORDERED: CARBOHYDRATES FOR HYPOGLYCEMIA PO PRN (16:18)
[2021-10-25] MEDS ORDERED: GLUCAGON FOR INJ 1 MG VIAL SQ PRN (16:18)
[2021-10-25] MEDS ORDERED: GLUCOSE 40% GEL 15 GM TUBE PO PRN (16:18)
[2021-10-25] MEDS ORDERED: GLUCOSE 10 TABS/TUBE PO PRN (16:18)
[2021-10-25] MEDS ORDERED: DEXTROSE 50% 50 ML SYRINGE IV PRN (16:18)
--- NOTE | 2021-10-25 16:38 | Cardiology Consultation ---
Date of Consultation October 25, 2021 Assessment & Plan (1) Chest pain: Patient presents with chest discomfort relieved with sublingual to nitroglycerin earlier today. EKG negative x1, troponin negative x1, and her second troponin I level was 2 to be drawn at 1600, just after I had seen her, the results are currently pending. Echocardiogram performed today reveals normal LV wall motion, normal LVEF. There is chest pain on palpation of the left costal sternal margin, uncertain if this is the discomfort that prompted her to come in. Her blood pressure on most recent measurement was elevated at 188/65, but otherwise, readings today have been relatively well controlled with previous measurement of 132/73 at 1130 this morning. At present, continue chronic medications including aspirin, metoprolol, rosuvastatin, lisinopril, furosemide. Trend serial troponin levels. Further work-up to be determined based on her progress overnight tonight. (2) Chronic diastolic CHF (congestive heart failure): Appears well compensated from a volume status standpoint. History of Present Illness Attending Physician: Enoc Barnes MD History of Present Illness Corinna Conteh is an 86-year-old female seen in cardiology consultation per the [facility]a tion of chest discomfort. The patient seen in the emergency room, bay B6. She was comfortable at time of my assessment. She describes that this morning she was watching television, and had been feeling well, with sudden onset of a left- sided chest discomfort that radiated into her left shoulder and left axilla and persisted. It was not associate with taking deep breath. She states her symptoms resolved after taking 2 nitroglycerin tablets. She notes a discomfort in her left neck that occurred several days before, otherwise no recent chest discomfort. Hypotonia patient is well-known to the undersigned as I follow her as an outpatient. Problem List: 1.Chronic diastolic heart failure 2.Mitral regurgitation 3.Pulmonary hypertension 4.Stable ASCVD 5.Cardiac catheterizationinMay 2008 revealed a90% distal LAD stenosis with luminal irregularities elsewhere, undergoingPCI of the distal LAD with a drug- eluting stent at that time. 6.Repeat cardiac catheterization in June 2010 revealed mild in stent restenosis with 50% stenosis elsewhere. Ongoing medication management was recommended 7.Normal nuclear stress test performed April 2018 In November, she had been seen by the undersigned in hospital consultation having presented with shortness of breath and lower extremity edema. Her symptoms resolved after the initiation of IV furosemide. A repeat transthoracic echocardiogram revealed normal LV EF and findings of moderate mitral regurgitation with moderate to severe pulmonary hypertension, estimated pulmonary artery systolic pressure in excess of 70 millimeters Hg. She therefore underwent a transesophageal echocardiogram on 12/08/2018 revealing only mild mitral regurgitation and mild tricuspid regurgitation. Additional transthoracic images were obtained at the time of the transesophageal echocardiogram and compared to those of the earlier transthoracic study, in the pulmonary artery systolic pressure had improved to the range of 45 to 50 millimeters of Hg. She has been maintained on furosemide in the meantime. Allergies Allergy/AdvReac Type Severity Reaction Status Date / Time No Known Allergies Allergy Unknown Verified 10/25/21 10:09 Home Medications Medication Instructions Recorded Confirmed Type aspirin 81 mg tablet,delayed 81 mg PO QPM 09/15/18 10/25/21 History release iron,carbonyl 65 mg-vitamin C 125 1 tab PO QAM 09/15/18 10/25/21 History mg tablet,delayed release (Vitron-C) metoprolol succinate 50 mg 50 mg PO QAM 09/15/18 10/25/21 History tablet,extended release 24 hr nitroglycerin 0.4 mg sublingual 0.4 mg SUBLINGUAL UD PRN 09/15/18 10/25/21 History tablet rosuvastatin 40 mg tablet 40 mg PO QPM 09/15/18 10/25/21 History cyanocobalamin (vitamin B-12) 1,500 mcg PO DAILY 09/20/18 10/25/21 History 1,000 mcg tablet lisinopril 10 mg tablet 10 mg PO QAM 09/20/18 10/25/21 History furosemide 20 mg tablet 20 mg PO QAM 08/01/19 10/25/21 History pantoprazole 40 mg tablet,delayed 40 mg PO QAM 08/01/19 10/25/21 History release linagliptin 5 mg tablet (Tradjenta) 5 mg PO QAM 03/15/21 10/25/21 History glucosamine sulfate 500 mg tablet 1,000 mg PO DAILY 10/25/21 10/25/21 History (Glucosamine) magnesium 250 mg tablet 250 mg PO DAILY 10/25/21 10/25/21 History sertraline 25 mg tablet 25 mg PO DAILY 10/25/21 10/25/21 History Patient History Medical History Anemia CAD (coronary artery disease) 2009 - FABIENNE to LAD Chronic diastolic CHF (congestive heart failure) CKD (chronic kidney disease) stage 3, GFR 30-59 ml/min DM type 2 (diabetes mellitus, type 2) Dyslipidemia Glaucoma Hypertension Kidney stones Osteoarthritis Surgical History H/O vein stripping right leg History of appendectomy History of bilateral tubal ligation History of cardiac cath 2009 @ [facility]--follows with Dr. Her History of cataract surgery bilt eyes History of cholecystectomy History of heart artery stent 2008 @ [facility] History of surgery open incision kidney stone removal History of tonsillectomy and adenoidectomy History of total abdominal hysterectomy and bilateral salpingo-oophorectomy Status post glaucoma surgery bilt eyes Family History Brother Family history of diabetes mellitus multiple Sister Family history of diabetes mellitus multiple Mother Family history of diabetes mellitus Father Family history of diabetes mellitus Other No significant family history Social History Smoking Status: Never smoker Second Hand Exposure: No; Do You Dip or Chew Tobacco: No; Tobacco Cessation Education Requested by Patient: No Hx Alcohol Use: No Hx Substance Use: No Preferred Language: Georgian Communication Ability: Effective Soil Analyst Required: No Beliefs That Will Affect Care: None Current Living Situation: [facility] Other Information That Helps Us Care for You: No Feels Safe at Home: Yes Assistive Devices: Hearing Aid - Bilateral Review of Systems Review of Systems: All systems reviewed & are unremarkable except as noted in HPI & below Physical Exam Physical Exam: Temp Pulse Resp BP Pulse Ox 36.5 C 59 L 20 188/65 H 99 10/25/21 14:00 10/25/21 14:00 10/25/21 14:00 10/25/21 14:00 10/25/21 14:00 Constitutional: WD/WN, vitals as above Respiratory: normal respiratory effort, lungs clear to auscultation Cardiovascular: RRR, no murmur, no edema Gastrointestinal (Abdomen): normal bowel sounds, soft, nontender, no hep atosplenomegaly Neurologic: PERRL, EOMI, accommodation nl, no face palsy, no dysarthria Results & Data ([facility]) Vital Signs (Past 12 Hours) Vital Signs Temp Pulse Pulse Resp BP BP Pulse Ox 10/25/21 14:00 36.5 C 59 L 20 188/65 H 99 10/25/21 11:30 61 18 132/73 98 10/25/21 10:08 68 20 107/47 L 97 10/25/21 09:40 63 18 100 10/25/21 09:31 36.1 C L 69 18 139/63 98 Laboratory Results Cardiac Enzymes 10/25/21 Range/Units 09:45 Troponin I < 0.015 (0-0.045) ng/ml Coagulation 10/25/21 Range/Units 09:45 PT 9.4 (9.0-12.0) Seconds APTT 24.3 (21.0-31.0) Seconds CBC 10/25/21 Range/Units 09:45 WBC 6.25 (4.8-10.8) K/uL RBC 3.68 L (4.2-5.4) M/uL Hgb 11.0 L (12.0-16.0) g/dL Hct 34.5 L (37-47) % Plt Count 182 (130-400) K/uL Neut # (Auto) 4.93 (1.4-6.5) K/uL Lymph # (Auto) 0.75 L (1.2-3.4) K/uL [place] # (Auto) 0.46 (0.11-0.59) K/uL Eos # (Auto) 0.11 (0-0.5) K/uL Baso # (Auto) 0.00 (0-0.2) K/uL Comprehensive Metabolic Panel 10/25/21 Range/Units 09:45 Sodium 137 (136-145) mmol/L Potassium 4.5 (3.5-5.1) mmol/L Chloride 107 (98-107) mmol/L Carbon Dioxide 26 (21-32) mmol/L BUN 25 H (7-18) mg/dl Creatinine 1.56 H (0.6-1.2) mg/dl Glucose 225 H (70-99) mg/dl Calcium 9.6 (8.5-10.1) mg/dl Intake and Output 1210/25/21 10/25/21 06:59 14:59 22:59 Intake Total 500 / 500 Balance 500 / 500 Intake: IV 500 / 500 Sodium Chloride 0.9% 500 ml @ 500 / 500 125 mls/hr IV .Q4H [facility] Rx#: [id number] Other: Weight 72.2 kg Weight Measurement Method Built in [facility] Patient Weight 10/26/21 06:59 Weight 72.2 kg Diagnostic Findings EKG performed 10/25/2021 reviewed independently revealed sinus rhythm at 65 bpm, normal EKG.
[2021-10-25] MEDS: FUROSEMIDE 20 MG TAB PO SCH (17:36)
[2021-10-25] MEDS: lisinopril 10 MG TAB PO SCH (17:36)
[2021-10-25] MEDS: SERTRALINE HCL 50 MG TABLET PO SCH (17:37)
[2021-10-25] MEDS: PANTOprazole 40 MG TAB PO SCH (18:39)
[2021-10-25] MEDS: METOPROLOL SUCC 50MG EXT REL TAB PO SCH (18:40)
[2021-10-25] MEDS: INSULIN ASPART PER UNIT SC SCH ×2 (18:50→21:30)
[2021-10-25] MEDS: HEPARIN SOD 5,000 UNIT/0.5 ML VIAL SQ SCH ×2 (18:58→22:23)
[2021-10-25] MEDS ORDERED: ROSUVASTATIN CALCIUM 20 MG TAB PO SCH (21:00)
[2021-10-26] MEDS ORDERED: oxyCODONE HCL IR 5 MG TAB (IMMEDIATE RELEASE) PO STA (02:15)
[2021-10-26 05:29] LABS: Hematocrit (blood only) 29.1 % (37-47); Hemoglobin 9.4 g/dL (12.0-16.0); Mean Corpuscular Hemoglobin 30.1 pg (25-34); Mean Corpuscular Hgb Conc 32.3 g/dL (32-36); Mean Corpuscular Volume 93.3 fL (80-100); Mean Platelet Volume 10.5 fL (7.4-10.4); Platelet Count 128 K/uL (130-400); RDW Coefficient of Variation 13.2 % (11.5-14.5); RDW Standard Deviation 45.1 fL (36.4-46.3); Red Blood Count 3.12 M/uL (4.2-5.4); White Blood Count 5.33 K/uL (4.8-10.8)
[2021-10-26 05:45] LABS: BUN Creatinine Ratio 17.2 (10-20); Est GFR (African American) 42.6 ml/min; Est GFR (Non-African American) 36.8 ml/min; Potassium 3.9 mmol/L (3.5-5.1)
[2021-10-26] MEDS: HEPARIN SOD 5,000 UNIT/0.5 ML VIAL SQ SCH (06:25)
[2021-10-26] MEDS: PANTOprazole 40 MG TAB PO SCH (08:45)
[2021-10-26] MEDS: METOPROLOL SUCC 50MG EXT REL TAB PO SCH (08:45)
[2021-10-26] MEDS: SERTRALINE HCL 50 MG TABLET PO SCH (08:45)
[2021-10-26] MEDS: FUROSEMIDE 20 MG TAB PO SCH (08:46)
[2021-10-26] MEDS: lisinopril 10 MG TAB PO SCH (08:46)
[2021-10-26] MEDS ORDERED: MAGNESIUM OXIDE 400 MG TAB PO SCH (09:00)
[2021-10-26] MEDS: INSULIN ASPART PER UNIT SC SCH (09:39)
--- NOTE | 2021-10-26 10:32 | Cardiology Progress Note ---
Date of Service October 26, 2021 Assessment & Plan (1) Chest pain: (2) Chronic diastolic CHF (congestive heart failure): Plan: 86-year-old female presents with chest discomfort. Atypical features noted. Her cardiac enzymes are undetectable x3 sets. No ischemic ECG changes or regional wall motion abnormalities per echocardiogram. Pain-free overnight. Telemetry without dysrhythmia. Patient may be discharged home. I will arrange for outpatient cardiology follow-up and dobutamine stress echocardiography for further stratification. Admission and Anticipated Discharge Date Admission Date: October 25, 2021 Subjective Patient seen and examined at the bedside. No recurrent chest discomfort overnight. Describes a left-sided chest pain prior to hospitalization requiring sublingual nitroglycerin. Her cardiac enzymes are negative. ECG without ischemic changes. Echocardiogram is stable without regional wall motion abnormalities. This morning she is feeling much better. Tolerated her a.m. meal. Notes some mild left-sided discomfort which is reproducible with palpation. States "it feels sore on the side". Denies orthopnea, PND, or lower extremity edema. No palpitations, lightheadedness, or dizziness. Review of Systems Review of Systems: All systems reviewed & are unremarkable except as noted in Subjective Physical Exam Constitutional: well developed and well nourished; no acute distress Respiratory: normal respiratory effort; no respiratory distress, no labored breathing and no retractions Auscultation: no crackles, no rales, no rhonchi and no wheezes Cardiovascular: Rate/Rhythm: regular rate and regular rhythm Heart Sounds: normal S1 and normal S2; no murmur Vessels: no JVD Extremities: no edema Gastrointestinal (Abdomen): Inspection/Auscultation: abdomen normal to inspection and normal bowel sounds; abdomen not distended Percussion/Palpation: abdomen soft; abdomen nontender, no guarding and abdomen not rigid Neurologic: CN's II-XI intact bilaterally and moves all extremities; no focal motor deficits Motor/Sensory: no tremor Psychiatric: A+Ox3, euthymic affect Results & Data ([facility]) Vital Signs (Past 12 Hours) Vital Signs Temp Pulse Resp BP Pulse Ox 10/26/21 07:00 36.6 C 69 24 135/63 97 10/26/21 04:25 66 131/68 97
--- NOTE | 2021-10-26 12:46 | Discharge Summary ---
Date of Service October 26, 2021 Admission HPI Per Admitting Provider 86-year-old female with PMH DM type II, HTN, CKD stage III, CAD, chronic diastolic CHF, GERD, and other problems listed below who presents the ED for evaluation of chest pain. Patient reports she developed a left-sided neck pain yesterday that radiated down into the left side of her chest and down to her left arm. She reports pain was worse with exertion and movement. This morning, while preparing her breakfast the pain got acutely worse so she presented to the ED for further evaluation. Patient did not take any sublingual nitroglycerin at home. She denies associated shortness of breath, diaphoresis, nausea, lightheadedness, syncopal event. Reports she otherwise has been feeling well recently. Denies lower extremity edema and orthopnea. No fevers or chills. Denies abdominal pain, vomiting, diarrhea. No urinary symptoms. In the ED, patient received 2 sublingual nitroglycerin with complete resolution of her symptoms. Initial troponin is negative and EKG is nonischemic appearing. Patient is hemodynamically stable. She also received a full dose aspirin and IVF. Admission Exam Per Admitting Provider Constitutional: WD/WN, vitals as above Eyes: PERRL, conjunctivae normal, anicteric sclerae ENMT: external ear and nose normal, oropharynx normal Ears: + hearing impairment Respiratory: normal respiratory effort, lungs clear to auscultation Cardiovascular: Rate/Rhythm: regular rate and regular rhythm Vessels: normal peripheral pulses Extremities: no edema Chest (Breasts): Additional Comments: Left chest wall tender to palpation Gastrointestinal (Abdomen): normal bowel sounds, soft, nontender, no hepatosplenomegaly Musculoskeletal: no cyanosis or clubbing, extremities motor strength 5/5 Skin: no rashes, warm and dry Neurologic: PERRL, EOMI, accommodation nl, no face palsy, no dysarthria Psychiatric: A+Ox3, euthymic affect Principal Diagnosis Noncardiac chest pain Discharge Exam Constitutional WD/WN, vitals as above no acute distress Sitting up in the chair Respiratory normal respiratory effort, lungs clear to auscultation Cardiovascular Rate/Rhythm: regular rate and regular rhythm Vessels: normal peripheral pulses Extremities: no edema Chest (Breasts) Additional Comments: Left chest wall remains tender however improved from yesterday Gastrointestinal (Abdomen) Percussion/Palpation: abdomen soft; abdomen nontender Skin no rashes, warm and dry Neurologic no focal motor deficits Psychiatric A+Ox3, euthymic affect Discharge Data Allergies Allergy/AdvReac Type Severity Reaction Status Date / Time No Known Allergies Allergy Unknown Verified 10/25/21 10:09 Consultations Cardiology Ordered Studies Echocardiogram-no wall motion abnormality, EF 60 to 65%, grade 1 diastolic dysfunction, mild mitral regurgitation CXR IMPRESSION 10/25/2021: No significant change compared to the prior study. No acute process. Hospital Course (1) Chest pain: (2) CAD (coronary artery disease): -Admit to telemetry -Patient presenting from home with reports of left neck/left-sided chest/left ar m pain. Symptoms resolved with nitro x 2 in ED. Noted that left-sided chest pain is reproducible on exam. -History of CAD: FABIENNE to LAD in 2008 and cardiac cath 06/2010 revealed mild in stent restenosis with 50% stenosis elsewhere -Troponins negative x3, EKG without acute ST changes, resting echocardiogram negative for wall motion abnormality -Chest pain likely musculoskeletal in nature, patient advised to use Tylenol on a as needed basis. -Evaluated by cardiology who will be arranging outpatient stress test. -Continue ASA, statin, beta-vincent (3) Chronic diastolic CHF (congestive heart failure): -Appears euvolemic, continue home dose of furosemide (4) Hypertension: -BP controlled, continue lisinopril and metoprolol (5) CKD (chronic kidney disease) stage 3, GFR 30-59 ml/min: -Baseline creatinine runs in the high 1's -Creatinine 1.5 --> 1.3 Attending Addendum: care coordinated with BARRY olmstead please refer to her notes for full details, I agree with her notes patient seen and examined, records reviewed by myself as well on exam, patient seen sitting up in bedside chair, comfortable, in good spirits States that she feels much better overall Mild chest wall pain left-sided No other symptoms VS noted and reviewed oriented x3, not in distress, speaks in sentences with no effort nor accessory muscle use normal rate, regular rhythm, no murmurs clear breath sounds bilaterally non distended, soft, nontender no bipedal edema, erythema, warmth no neuro deficits WBC 5.3 Hg 9.4 Crea 1.3 ASSESSMENT AND PLAN Chest pain acute coronary syndrome ruled out Evaluated by cardiology, recommend outpatient dobutamine stress test CHF Chronic not in Acute exacerbation other diagnoses and plan of care as per BARRY olmstead's notes Enoc Barnes MD Total Time Total Time Spent Total Time Spent (In Minutes): 35 Discharge Plan Discharge Items Patient Disposition: Home - Self-Care Reason For Visit: CHEST PAIN Discharge Diagnosis: Chest Pain - non cardiac Activity: Resume your previous activity Non-emergency contact: Primary Care Provider Call non-emergency contact if: you have any medication questions, your symptoms worsen, your pain is not controlled and you have a fever Follow-up/Referrals: Tova Pierre DO [Primary Care Provider] - 10/28/21 2:05 pm Diet: Heart Healthy and Low Sodium (2gm) Addtl Attending Provider Instructions: You came to the hospital for chest pain. Your EKG and cardiac blood work did not suggest that you had a heart attack. Your pain is likely due to a pulled muscle. You may take Tylenol 650 mg 4 times per day as needed for pain. You were evaluated by cardiology who will be arranging an outpatient stress test for you. You will receive a call from their office. Please keep all follow-up appointments as scheduled. There were no changes in your home medications, continue to take as prescribed. Pending Studies at Discharge: No Stand-Alone Forms: [facility] [employer], Smoking Cessation Medications and DC Order Prescriptions: Continued metoprolol succinate 50 mg Tablet Extended Release 24 Hr 50 mg PO QAM RF: 0 aspirin 81 mg Tablet,Delayed Release (Dr/Ec) 81 mg PO QPM RF: 0 rosuvastatin 40 mg Tablet 40 mg PO QPM RF: 0 Vitron-C 65 mg iron- 125 mg Tablet,Delayed Release (Dr/Ec) 1 tab PO QAM RF: 0 nitroglycerin 0.4 mg Tablet, Sublingual 0.4 mg Sublingual UD PRN (Reason: chest pain) RF: 0 pantoprazole 40 mg tablet,delayed release (DR/EC) 40 mg PO QAM RF: 0 furosemide 20 mg tablet 20 mg PO QAM RF: 0 cyanocobalamin (vitamin B-12) 1,000 mcg Tablet 1,500 mcg PO DAILY RF: 0 lisinopril 10 mg tablet 10 mg PO QAM RF: 0 glucosamine sulfate [Glucosamine] 500 mg Tablet 1,000 mg PO DAILY RF: 0 sertraline 25 mg tablet 25 mg PO DAILY RF: 0 magnesium 250 mg Tablet 250 mg PO DAILY RF: 0 Tradjenta 5 mg tablet 5 mg PO QAM RF: 0 Discharge Orders: Discharge Order (Routine); Ordered 10/26/21 Ordered By: Bibiana Olmstead Admission Data Admit Date/Time: 10/25/21 12:00 Attending Provider: Enoc Barnes Admit Provider: Enoc Barnes Primary Care Provider: Tova Pierre Other Providers: Mumtaz Smith Robin A. Other Interventions: Discharge Summary Assessment (RN) Last Done: 10/26/21 12:08
[2021-10-26] MEDS ORDERED: ASPIRIN 81 MG ECTAB PO SCH (21:00)
== END 2021-10-26 13:14 | disposition home or self-care (01) ==
LOC: ED 09:29 → EDINP 09:29

== ENCOUNTER 2022-07-23 15:56 | Inpatient (IN) ==
[2022-07-23] MEDS ORDERED: ONDANSETRON INJ 2 MG/ML 2 ML VIAL IV STA (16:26)
[2022-07-23] MEDS ORDERED: SODIUM CHLORIDE 0.9% 500 ML IV STA (16:26)
[2022-07-23] MEDS ORDERED: MoRPHine SULFATE 4 MG/ML 1 ML CARP\\VIAL IV STA (16:26)
--- NOTE | 2022-07-23 16:42 | Emergency Department Note ---
Impression & Plan Fall, Contusion of face, Contusion of knee, right, Hematoma ED Provider Note NAME: CHARLINE SHAHID AGE: 87 SEX: F : 1935 ARRIVES VIA: Ambulance INFORMANT: Patient, patient's family ED PROVIDER(S): Barrera Ro DO CHIEF COMPLAINT: Fall HPI: The patient is an 87-year-old female who presented to the emergency department after fall. The patient states that she was standing on her porch at her own home when her right leg "buckled" and she fell to the ground. The patient struck the right side of her face. She denies having any loss of consciousness. She denies having any neck pain. She denies having any back pain. The patient states she has moderate pain especially in her right lower extremity. She was not able to stand because of the pain. She states she is not sure if she is up-to-date with her immunizations including her tetanus. She denies having any chest pain or difficulty breathing at this time. She did receive pain medication prior to arrival and states that it did help somewhat. She is had no fever. She said no recent traveling. She is been compliant with her outpatient medications. Currently she does not take any oral anticoagulants. ROS: See above HPI for pertinent positives & negatives. A total of 10 systems reviewed and were otherwise negative. PAST MEDICAL HISTORY: See Below PAST SURGICAL HISTORY: See Below FAMILY HISTORY: See Below SOCIAL HISTORY: See Below HOME MEDICATIONS: See Below ALLERGIES: See Below VITALS: See Below PHYSICAL EXAMINATION: GENERAL: The patient is awake and alert. She is very anxious appearing and appears to be uncomfortable. EYES: The conjunctivae are clear. The pupils are round and reactive. Right- sided periorbital ecchymosis was noted. EARS, NOSE, MOUTH AND THROAT: The nose is without any evidence of any deformity. Mucous membranes are moist. Tongue is midline. NECK: The neck is nontender and supple. RESPIRATORY: Normal respiratory effort is noted there is no evidence of wheezing rhonchi or rales CARDIOVASCULAR: Regular rate and rhythm noted there no murmurs rubs or gallops normal S1 normal S2. GASTROINTESTINAL: The abdomen is soft. Abdomen is nontender. BACK: No midline tenderness or or step-off noted range of motion in flexion extension as well as rotation no signs of muscle spasm noted MUSCULOSKELETAL/EXTREMITIES: There is no evidence of gross deformity full range of motion is noted in the hips and shoulders. There is significant ecchymosis and swelling over the right knee. Range of motion testing is significantly limited secondary to swelling and pain. SKIN: There is no obvious evidence of any rash. Pulses are symmetric in both feet. NEUROLOGIC: Patient is awake alert and oriented x3 MEDICAL DECISION MAKING: The patient is an 87-year-old female who presented to the emergency department by ambulance for an evaluation of injury. The patient had a fall from a standing position. She had a very large right knee hematoma. There did not a ppear to be any anterior posterior instability on physical exam. I discussed the patient's laboratory and radiographic studies with her. She was treated with pain medication in the emergency department. At this time and there was no bony injury although I am highly suspicious of a significant soft tissue or ligamentous injury given the amount of bleeding. She could not ambulate without severe pain. This reason I discussed her case with the on-call [facility] hospitalist. They have agreed to evaluate the patient in the emergency department for further management and disposition. Triage Nursing notes reviewed. Prior medical records reviewed Vital Signs: reviewed and remarkable for elevated blood pressure. Differential diagnosis: Fracture, dislocation, contusion, intra-abdominal, pneumothorax, intrathoracic, intracranial, neurologic, compartment syndrome, rhabdomyolysis, as well as other pathologies. ER treatment provided: See below Diagnostics interpreted by me: ECG: EKG was obtained in the emergency department. My interpretation is normal sinus rhythm at 66 bpm. There is no ectopy. There is no acute ST segment abnormalities noted. Poor R wave progression was noted. This was compared to a tracing from October 25, 2021. No changes were noted. Cardiac Monitoring: An order was placed for continuous cardiac monitoring. The monitor shows a rate of 64 bpm with sinus rhythm. Laboratory studies: As stated above and show below. Imaging studies: See below Consultation(s): Discussed this case with Dr. Mayer Past Med/Surg History Medical History Anemia CAD (coronary artery disease) 2008 - [facility] to [facility] Chronic diastolic CHF (congestive heart failure) CKD (chronic kidney disease) stage 3, GFR 30-59 ml/min DM type 2 (diabetes mellitus, type 2) Dyslipidemia Glaucoma Hypertension Kidney stones Osteoarthritis Surgical History H/O vein stripping right leg History of appendectomy History of bilateral tubal ligation History of cardiac cath 2008 @ [facility]--follows with Dr. Her History of cataract surgery bilt eyes History of cholecystectomy History of heart artery stent 2008 @ [facility] History of surgery open incision kidney stone removal History of tonsillectomy and adenoidectomy History of total abdominal hysterectomy and bilateral salpingo-oophorectomy Status post glaucoma surgery bilt eyes Family History Brother Family history of diabetes mellitus multiple Sister Family history of diabetes mellitus multiple Mother Family history of diabetes mellitus Father Family history of diabetes mellitus Other No significant family history Social History Smoking Status: Never smoker Second Hand Exposure: No; Hx Alcohol Use: No Hx Substance Use: No Preferred Language: Uzbek Communication Ability: Effective Hearing Ability: Use of Hearing Aid 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 Beliefs That Will Affect Care: None marital status: Single Current Living Situation: Alone Other Information That Helps Us Care for You: No Feels Safe at Home: Yes Safety Concerns: Feels Safe At This Time caffeine: No during the past year weight has: remained stable Assistive Devices: Glasses, Hearing Aid - Bilateral and Walker Allergies Allergies Allergy/AdvReac Type Severity Reaction Status Date / Time No Known Allergies Allergy Unknown Verified 07/23/22 21:25 Home Meds Home Medications Medication Instructions Recorded Confirmed aspirin 81 mg tablet,delayed 81 mg PO QPM 09/15/18 07/23/22 release iron,carbonyl 65 mg-vitamin C 125 1 tab PO QAM 09/15/18 07/23/22 mg tablet,delayed release (Vitron-C) metoprolol succinate 50 mg 50 mg PO QAM 09/15/18 07/23/22 tablet,extended release 24 hr nitroglycerin 0.4 mg sublingual 0.4 mg sublingual UD PRN chest pain 09/15/18 07/23/22 tablet rosuvastatin 40 mg tablet 40 mg PO QPM 09/15/18 07/23/22 cyanocobalamin (vitamin B-12) 1,500 mcg PO DAILY 09/20/18 07/23/22 1,000 mcg tablet lisinopril 10 mg tablet 10 mg PO QAM 09/20/18 07/23/22 pantoprazole 40 mg tablet,delayed 40 mg PO QAM 08/01/19 07/23/22 release linagliptin 5 mg tablet (Tradjenta) 5 mg PO QAM 03/15/21 07/23/22 glucosamine sulfate 500 mg tablet 1,000 mg PO DAILY 10/25/21 07/23/22 (Glucosamine) magnesium 250 mg tablet 250 mg PO DAILY 10/25/21 07/23/22 sertraline 25 mg tablet 25 mg PO DAILY 10/25/21 07/23/22 latanoprost 0.005 % eye drops 1 drp OPB HS 07/23/22 07/23/22 Results & Data (ED) Vital Signs Vital Signs - 24 hr 07/23/22 16:07 07/23/22 16:51 07/23/22 16:51 Temperature 36.6 C Temperature Source Oral Pulse Rate 60 Pulse Rate [Apical] 63 Respiratory Rate 16 16 Respiratory Effort / Characteristics Non-Labored Spontaneous Respiratory Depth Normal Blood Pressure 148/72 H Blood Pressure [Right Arm] 130/77 Blood Pressure Mean 97 Blood Pressure Mean [Right Arm] 94 Pulse Oximetry 98 99 99 Oxygen Delivery Method Room Air Room Air Room Air Sepsis Recent Fever Within 48 Hours No Sepsis New/Unexplained Change in Mental Status No Sepsis Action Taken by Nursing No Action Required 07/23/22 18:31 Temperature Temperature Source Pulse Rate Pulse Rate [Apical] 64 Respiratory Rate 16 Respiratory Effort / Characteristics Non-Labored Spontaneous Respiratory Depth Normal Blood Pressure Blood Pressure [Right Arm] 144/69 H Blood Pressure Mean Blood Pressure Mean [Right Arm] 94 Pulse Oximetry 95 Oxygen Delivery Method Room Air Sepsis Recent Fever Within 48 Hours Sepsis New/Unexplained Change in Mental Status Sepsis Action Taken by Prison Medications Current Medication List: was personally reviewed by me Laboratory Data Attestation: I reviewed the patient's lab results. Result diagrams: 07/24/22 06:18 07/24/22 06:18 Lab Results 07/23/22 07/23/22 07/23/22 Range/Units 16:48 16:48 16:48 WBC 7.03 (4.8-10.8) K/ul RBC 3.37 L (3.93-5.22) M/uL Hgb 10.2 L (12.0-16.0) g/dl Hct 32.0 L (34.1-44.9) % MCV 95.0 (80.0-100.0) fL MCH 30.3 (25.0-34.0) pg MCHC 31.9 L (32.0-36.0) g/dL RDW Std Deviation 44.0 (36.4-46.3) fL RDW Coeff of Blanca 12.7 (11.5-14.5) % Plt Count 140 (130-400) K/uL MPV 10.5 (9.4-12.3) fL Immature Gran % (Auto) 0.3 % Neut % (Auto) 79.9 % Lymph % (Auto) 11.4 % Sherman % (Auto) 8.0 % Eos % (Auto) 0.0 % Baso % (Auto) 0.4 % Neut # (Auto) 5.62 (1.4-6.5) K/uL Lymph # (Auto) 0.80 L (1.2-3.4) K/uL Sherman # (Auto) 0.56 (0.24-0.82) K/uL Eos # (Auto) 0.00 (0-0.50) K/uL Baso # (Auto) 0.03 (0-0.2) K/uL Immature Gran # (Auto) 0.02 (0.00-0.02) K/uL PT 10.3 (9.0-12.0) Seconds INR 1.0 (0.9-1.1) APTT 25.1 (21.0-31.0) Seconds PTT Ratio 0.9 Sodium 135 L (136-145) mmol/L Potassium 4.4 (3.5-5.1) mmol/L Chloride 103 (98-107) mmol/L Carbon Dioxide 26 (21-32) mmol/L Anion Gap 6 (3-11) BUN 30 H (6-23) mg/dl Creatinine 1.53 H (0.6-1.2) mg/dl Est Cr Clr Drug Dosing 26.9 ml/min Est GFR ( Amer) 35.1 ml/min Est GFR (Non-Af Amer) 30.3 ml/min BUN/Creatinine Ratio 19.6 (10-20) Glucose 274 H (70-99(Fasting)) mg/dl Calcium 9.3 (8.5-10.1) mg/dl Total Bilirubin 0.6 (0.2-1.0) mg/dl AST 10 L (13-39) U/L ALT 5 L (7-52) U/L Alkaline Phosphatase 84 (34-104) U/L Troponin I High Sens 23.6 H (0-14) pg/ml Total Protein 6.4 (6.0-8.3) gm/dl Albumin 3.8 (3.4-5.0) gm/dl Globulin 2.6 (2.5-4.0) gm/dl Albumin/Globulin Ratio 1.5 (0.9-2) Lipase 55 (11-82) U/L SARS-CoV-2, RNA, NAAT (NEGATIVE) 07/23/22 Range/Units 16:48 WBC (4.8-10.8) K/ul RBC (3.93-5.22) M/uL Hgb (12.0-16.0) g/dl Hct (34.1-44.9) % MCV (80.0-100.0) fL MCH (25.0-34.0) pg MCHC (32.0-36.0) g/dL RDW Std Deviation (36.4-46.3) fL RDW Coeff of Blanca (11.5-14.5) % Plt Count (130-400) K/uL MPV (9.4-12.3) fL Immature Gran % (Auto) % Neut % (Auto) % Lymph % (Auto) % Sherman % (Auto) % Eos % (Auto) % Baso % (Auto) % Neut # (Auto) (1.4-6.5) K/uL Lymph # (Auto) (1.2-3.4) K/uL Sherman # (Auto) (0.24-0.82) K/uL Eos # (Auto) (0-0.50) K/uL Baso # (Auto) (0-0.2) K/uL Immature Gran # (Auto) (0.00-0.02) K/uL PT (9.0-12.0) Seconds INR (0.9-1.1) APTT (21.0-31.0) Seconds PTT Ratio Sodium (136-145) mmol/L Potassium (3.5-5.1) mmol/L Chloride (98-107) mmol/L Carbon Dioxide (21-32) mmol/L Anion Gap (3-11) BUN (6-23) mg/dl Creatinine (0.6-1.2) mg/dl Est Cr Clr Drug Dosing ml/min Est GFR ( Amer) ml/min Est GFR (Non-Af Amer) ml/min BUN/Creatinine Ratio (10-20) Glucose (70-99(Fasting)) mg/dl Calcium (8.5-10.1) mg/dl Total Bilirubin (0.2-1.0) mg/dl AST (13-39) U/L ALT (7-52) U/L Alkaline Phosphatase (34-104) U/L Troponin I High Sens (0-14) pg/ml Total Protein (6.0-8.3) gm/dl Albumin (3.4-5.0) gm/dl Globulin (2.5-4.0) gm/dl Albumin/Globulin Ratio (0.9-2) Lipase (11-82) U/L SARS-CoV-2, RNA, NAAT NEGATIVE (NEGATIVE) Administered Medications Insulin Aspart (Insulin Aspart Per Unit) 0 units SC ACHS HEIDY Stop: 08/22/22 20:59 Last Admin: 07/24/22 09:21 Dose: Not Given Documented By: Admin: 07/23/22 22:22 Dose: 2 units Documented By: FLETCHER Co-signed By: AM Insulin Glargine (Lantus Per Unit Charge) 8 units SQ BID HEIDY Stop: 08/22/22 20:59 Last Admin: 07/24/22 09:21 Dose: Not Given Documented By: KKDidier Admin: 07/23/22 22:22 Dose: 8 units Documented By: LL Co-signed By: AM Rosuvastatin Calcium (Rosuvastatin Calcium 20 Mg Tab) 40 mg PO QPM HEIDY Stop: 08/22/22 22:09 Last Admin: 07/23/22 23:32 Dose: 40 mg Documented By: LL Discontinued Medications Sodium Chloride (Nss) 500 mls @ 999 mls/hr IV .Q31M STA Stop: 07/23/22 16:56 Last Infusion: 07/23/22 17:42 Dose: 0 mls/hr Documented By: Admin: 09/07/22 16:53 Dose: 999 mls/hr Documented By: MANINDER Morphine Sulfate (Morphine Sulfate 4 Mg/Ml 1 Ml Carp\\Vial) 4 mg IV NOW STA Stop: 07/23/22 16:27 Last Admin: 07/23/22 16:52 Dose: 4 mg Documented By: MANINDER Morphine Sulfate (Morphine Sulfate 4 Mg/Ml 1 Ml Carp\\Vial) 4 mg IV Q30M PRN PRN Reason: Pain Stop: 08/06/22 16:25 Last Admin: 07/23/22 18:35 Dose: 4 mg Documented By: Admin: 07/23/22 17:22 Dose: 4 mg Documented By: CRISTIN Ondansetron HCl (Ondansetron Inj 2 Mg/Ml 2 Ml Vial) 4 mg IV NOW STA Stop: 07/23/22 16:27 Last Admin: 07/23/22 16:52 Dose: 4 mg Documented By: MANINDER Imaging Data Radiologist's Impression: Cervical Spine CT 07/23/22 16:26 CT SCAN OF THE CERVICAL SPINE CLINICAL HISTORY: Trauma. Fall. COMPARISON STUDY: Cervical spine radiographs dated 08/06/2021. Chest CT dated 06/19/2010. TECHNIQUE: CT scan of the cervical spine is performed from the skull base to the upper thoracic spine. Images are reviewed in the axial, sagittal, and coronal planes. IV contrast was not administered for this examination. A dose lowering technique was utilized adhering to the principles of ALARA. FINDINGS: Skeletal structures: The skeletal structures are osteopenic. There is no evidence of fracture or subluxation involving the cervical spine. Mild anterior wedging of C6 is unchanged from previous. Vertebral body height and alignment are otherwise maintained. Anterior osteophytes are seen throughout. The odontoid process and lateral masses are intact. The atlantoaxial articulation is preserved noting advanced productive degenerative changes. The spinous processes appear intact. There are mild chronic superior endplate compression deformities of T2 and T3. There is mild to moderate multilevel cervical spondylosis. Uncovertebral and facet arthropathy contributes to neural foraminal narrowing at several levels. There is chronic posttraumatic deformity of the right clavicle. Intervertebral discs: There is moderate disc space narrowing at C5-C6 and C6-C7. Central canal: Posterior disc osteophyte complexes are seen at all cervical levels between C3-C4 and C6-C7. This may contribute to mild multilevel acquired compromise of the central canal. Soft tissues: The prevertebral and paraspinous soft tissues are within normal limits. There is atherosclerotic calcification of the carotid bulbs. A 1.6 cm peripherally calcified nodule in the left lobe of the thyroid has been present dating back to 2009 and is of doubtful significance. Calvarium: The visualized calvarium at the skull base appears intact. Brain parenchyma: Partially visualized brain parenchyma at the skull base is within normal limits. Sinuses and mastoids: The visualized paranasal sinuses are clear. The mastoid air cells are well pneumatized. Lung apices: Clear as visualized. IMPRESSION: 1. There is no evidence of fracture or subluxation involving the cervical spine. 2. Osteopenia and spondylotic change as above. ACT 112: Negative or not required by law. Electronically signed by: Bobby Nelson M.D. 07/23/2022 6:53 PM Chest X-Ray 07/23/22 16:26 SINGLE VIEW CHEST CLINICAL HISTORY: Fall. Atypical chest pain. FINDINGS: An AP, portable, upright chest radiograph is compared to study dated 10/25/2021. The heart is mildly enlarged noting atherosclerotic calcification of the thoracic aorta. The pulmonary vasculature is noncongested. Chronic interstitial thickening is similar to previous. The lungs and pleural spaces are clear no change in mild bibasilar scarring/atelectasis. No pneumothorax is seen. The skeletal structures are osteopenic. The bony thorax is grossly intact. Cholecystectomy clips are noted in the right upper quadrant. IMPRESSION: No active disease in the chest. ACT 112: Negative or not required by law. Electronically signed by: Bobby Nelson M.D. 07/23/2022 6:[address] 07/23/22 16:26 CT SCAN OF THE BRAIN WITHOUT IV CONTRAST CLINICAL HISTORY: Fall. COMPARISON STUDY: CT of the brain dated 03/15/2021. TECHNIQUE: Unenhanced axial CT scan of the brain is performed from the vertex to the skull base. A dose lowering technique was utilized adhering to the principles of ALARA. FINDINGS: Brain parenchyma: There is age-related involutional change noting mild subcort ical and periventricular microangiopathic disease. There is no hemorrhage, mass effect, or evidence of acute territorial ischemia by CT criteria. Maharaj-white matter differentiation is preserved. No extra-axial fluid collection is seen. Ventricles, sulci, cisterns: Prominent secondary to involutional change. Intracranial vasculature: There is atherosclerotic calcification of the cavernous carotid arteries. Calvarium: The skeletal structures are osteopenic. No depressed calvarial fracture is identified. Soft tissues: There is a right frontal scalp hematoma. Sinuses and mastoids: There is opacification of a right anterior ethmoid sinus. The remaining paranasal sinuses are clear. The mastoid air cells are well pneumatized. Orbits: The bony orbits are grossly intact. There are bilateral ocular lens implants. IMPRESSION: There is no hemorrhage, mass effect, or evidence of acute territorial ischemia by CT criteria. ACT 112: Negative or not required by law. Electronically signed by: Bobby Nelson M.D. 07/23/2022 6:20 PM Knee X-Ray 07/23/22 16:26 RIGHT KNEE 2 VIEWS CLINICAL HISTORY: Fall. FINDINGS: AP and crosstable lateral views of the right knee are obtained. No prior studies are available for comparison at the time of dictation. The skeletal structures are osteopenic. No fracture is seen. There is mild to moderate tricompartmental degenerative joint space narrowing. Chondrocalcinosis is seen in the medial and lateral compartments. There are small marginal osteoph ytes and tiny patellar enthesophytes. Joint effusion is noted. There is marked prepatellar soft tissue swelling. IMPRESSION: 1. Prepatellar soft tissue swelling and joint effusion with no fracture identified. 2. Osteopenia with degenerative change and chondrocalcinosis as above. Electronically signed by: Bobby Nelson M.D. 07/23/2022 6:11 PM Pelvis X-Ray 07/23/22 16:26 SINGLE VIEW PELVIS CLINICAL HISTORY: Fall. Hip pain. FINDINGS: AP view of the pelvis is compared to study dated 07/28/2021. The skeletal structures are osteopenic. There is no radiographic evidence of acute fracture involving the hips or bony pelvis. Moderate arthritic change and joint space narrowing is seen in both hips. Degenerative sclerosis is seen in the sacroiliac joints and pubic symphysis. Lumbosacral spondylosis is partially visualized. A phlebolith is again seen in left hemipelvis. The overlying soft tissues are normal as imaged. IMPRESSION: No acute bony abnormality is identified. Electronically signed by: Bobby Nelson M.D. 07/23/2022 6:[address] 07/23/22 17:59 CT SCAN OF THE FACIAL BONES WITHOUT IV CONTRAST CLINICAL HISTORY: Fall. Facial injury. COMPARISON STUDY: CT of the brain performed concurrently on 07/23/2022. TECHNIQUE: High-resolution CT scan of the facial bones is performed. Images are reviewed in the axial, sagittal, and coronal planes. IV contrast was not administered for this examination. A dose lowering technique was utilized adhering to the principles of ALARA. CT DOSE: 1002.77 mGy.cm FINDINGS: The skeletal structures are osteopenia. There is no evidence of facial bone fracture. The bony orbits are intact and the orbital contents are within normal limits noting bilateral ocular lens implants. The zygomatic arches, nasal bones, and pterygoid plates are preserved. The maxilla and mandible are intact. Degenerative change is noted in the temporomandibular joints. There are no layering blood products within the paranasal sinuses. There is opacification of the right ethmoid sinus. The remaining paranasal sinuses are clear. The mastoid air cells are well pneumatized. The visualized calvarium and upper cervical spine are maintained. Partially imaged brain parenchyma is within normal limits age related involutional change. There is a right frontal scalp hematoma. Several dental caries are identified. There are punctate calcified sialoliths in the left parotid gland. IMPRESSION: 1. There is no evidence of facial bone fracture. 2. Several dental caries are identified. Nonemergent follow-up with dental history is recommended. ACT 112: Negative or not required by law. Electronically signed by: Bobby Nelson M.D. 07/23/2022 6:[address] 07/23/22 18:18 CT SCAN OF THE RIGHT KNEE WITHOUT IV CONTRAST CLINICAL HISTORY: Fall with right knee injury. COMPARISON STUDY: Radiographs of the right knee dated 07/23/2022. TECHNIQUE: CT scan of the right knee is performed from the distal femoral shaft to the proximal tibia and fibula. Images are reviewed in the axial, sagittal, and coronal planes. IV contrast was not administered for this examination. A dose lowering technique was utilized adhering to the principles of ALARA. The examination is modestly degraded by motion artifact. CT DOSE: 396.98 mGy.cm FINDINGS: The skeletal structures are osteopenic. No fracture is seen. Mild to moderate tricompartmental degenerative change is noted. There is chondrocalcinosis within the medial and lateral compartments. A small joint effusion is observed. There is prepatellar soft tissue edema/hemorrhage. A large soft tissue hematoma is partially visualized within the anteromedial soft tissues of the distal thigh. This measures at least 7 x 7 x 4.5 cm in dimension. There is generalized atrophy of the regional musculature. Atherosclerotic calcification is seen in the popliteal artery. IMPRESSION: 1. No fracture is identified. 2. There is prepatellar soft tissue edema/hemorrhage with a large hematoma within the anteromedial aspect of the distal thigh as above. 3. Degenerative change and chondrocalcinosis as above. ACT 112: Negative or not required by law. Electronically signed by: Bobby Nelson M.D. 07/23/2022 6:58 PM Discharge Plan Visit Data Chief Complaint: Fall Stated Complaint: FALL, HEMATOMA TO HEAD, R KNEE PAIN ED Provider: Barrera Ro Discharge Problem: Fall, Contusion of face, Contusion of knee, right, Hematoma Patient Disposition: Admitted As Inpatient Discharge Instructions Interventions: ED Discharge Assessment Last Done: 07/23/22 21:32 : Fall Qualifiers: Encounter type: initial encounter Qualified Code(s): W19.XXXA - Unspecified fall, initial encounter Contusion of face Qualifiers: Encounter type: initial encounter Qualified Code(s): S00.83XA - Contusion of other part of head, initial encounter Contusion of knee, right Qualifiers: Encounter type: initial encounter Qualified Code(s): S80.01XA - Contusion of right knee, initial encounter
[2022-07-23 17:10] LABS: Hemoglobin 10.2 g/dl (12.0-16.0); Mean Corpuscular Hemoglobin 30.3 pg (25.0-34.0); Mean Corpuscular Hgb Conc 31.9 g/dL (32.0-36.0); Mean Platelet Volume 10.5 fL (9.4-12.3); Partial Thromboplastin Ratio 0.9; Partial Thromboplastin Time 25.1 Seconds (21.0-31.0); Platelet Count 140 K/uL (130-400); Prothrombin Time 10.3 Seconds (9.0-12.0); RDW Coefficient of Variation 12.7 % (11.5-14.5); Red Blood Count 3.37 M/uL (3.93-5.22); White Blood Count 7.03 K/ul (4.8-10.8)
[2022-07-23 17:16] LABS: Basophils # (auto) 0.03 K/uL (0-0.2); Basophils % (auto) 0.4 %; Immature Granulocytes # (auto) 0.02 K/uL (0.00-0.02); Immature Granulocytes % (auto) 0.3 %; Lymphocytes % (auto) 11.4 %; Monocytes # (auto) 0.56 K/uL (0.24-0.82); Neutrophils # (auto) 5.62 K/uL (1.4-6.5); Neutrophils % (auto) 79.9 %
[2022-07-23 17:17] LABS: Albumin Globulin Ratio 1.5 (0.9-2); Albumin Level 3.8 gm/dl (3.4-5.0); BUN Creatinine Ratio 19.6 (10-20); Bilirubin,Total 0.6 mg/dl (0.2-1.0); Calcium 9.3 mg/dl (8.5-10.1); Creatinine Clr Calc Pharmacy 26.9 ml/min; Est GFR (African American) 35.1 ml/min; Est GFR (Non-African American) 30.3 ml/min; Globulin 2.6 gm/dl (2.5-4.0); Potassium 4.4 mmol/L (3.5-5.1); Total Protein 6.4 gm/dl (6.0-8.3)
[2022-07-23 17:22] LABS: Troponin I High Sensitivity 23.6 pg/ml (0-14)
[2022-07-23] MEDS: MoRPHine SULFATE 4 MG/ML 1 ML CARP\\VIAL IV PRN ×2 (17:22→18:35)
--- NOTE | 2022-07-23 18:11 | XRay Report ---
SINGLE VIEW PELVIS CLINICAL HISTORY: Fall. Hip pain. FINDINGS: AP view of the pelvis is compared to study dated 07/28/2021. The skeletal structures are ost eopenic. There is no radiographic evidence of acute fracture involving the hips or bony pelvis. Moder ate arthritic change and joint space narrowing is seen in both hips. Degenerative sclerosis is seen i n the sacroiliac joints and pubic symphysis. Lumbosacral spondylosis is partially visualized. A phleb olith is again seen in left hemipelvis. The overlying soft tissues are normal as imaged. IMPRESSION: No acute bony abnormality is identified. Electronically signed by: Bobby Nelson M.D. 07/23/2022 6:10 PM
--- NOTE | 2022-07-23 18:12 | XRay Report ---
RIGHT KNEE 2 VIEWS CLINICAL HISTORY: Fall. FINDINGS: AP and crosstable lateral views of the right knee are obtained. No prior studies are availa ble for comparison at the time of dictation. The skeletal structures are osteopenic. No fracture is s een. There is mild to moderate tricompartmental degenerative joint space narrowing. Chondrocalcinosis is seen in the medial and lateral compartments. There are small marginal osteophytes and tiny patell ar enthesophytes. Joint effusion is noted. There is marked prepatellar soft tissue swelling. IMPRESSION: 1. Prepatellar soft tissue swelling and joint effusion with no fracture identified. 2. Osteopenia with degenerative change and chondrocalcinosis as above. Electronically signed by: Bobby Nelson M.D. 07/23/2022 6:11 PM
--- NOTE | 2022-07-23 18:14 | XRay Report ---
SINGLE VIEW CHEST CLINICAL HISTORY: Fall. Atypical chest pain. FINDINGS: An AP, portable, upright chest radiograph is compared to study dated 10/25/2021. The heart is mildly enlarged noting atherosclerotic calcification of the thoracic aorta. The pulmonary vasculat ure is noncongested. Chronic interstitial thickening is similar to previous. The lungs and pleural sp aces are clear no change in mild bibasilar scarring/atelectasis. No pneumothorax is seen. The skeleta l structures are osteopenic. The bony thorax is grossly intact. Cholecystectomy clips are noted in th e right upper quadrant. IMPRESSION: No active disease in the chest. ACT 112: Negative or not required by law. Electronically signed by: Bobby Nelson M.D. 07/23/2022 6:13 PM
--- NOTE | 2022-07-23 18:25 | CT Scan Report ---
CT SCAN OF THE BRAIN WITHOUT IV CONTRAST CLINICAL HISTORY: Fall. COMPARISON STUDY: CT of the brain dated 03/15/2021. TECHNIQUE: Unenhanced axial CT scan of the brain is performed from the vertex to the skull base. A do se lowering technique was utilized adhering to the principles of ALARA. FINDINGS: Brain parenchyma: There is age-related involutional change noting mild subcortical and periventricula r microangiopathic disease. There is no hemorrhage, mass effect, or evidence of acute territorial isc hemia by CT criteria. Maharaj-white matter differentiation is preserved. No extra-axial fluid collection is seen. Ventricles, sulci, cisterns: Prominent secondary to involutional change. Intracranial vasculature: There is atherosclerotic calcification of the cavernous carotid arteries. Calvarium: The skeletal structures are osteopenic. No depressed calvarial fracture is identified. Soft tissues: There is a right frontal scalp hematoma. Sinuses and mastoids: There is opacification of a right anterior ethmoid sinus. The remaining paranas al sinuses are clear. The mastoid air cells are well pneumatized. Orbits: The bony orbits are grossly intact. There are bilateral ocular lens implants. IMPRESSION: There is no hemorrhage, mass effect, or evidence of acute territorial ischemia by CT keaton weir. ACT 112: Negative or not required by law. Electronically signed by: Bobby Nelson M.D. 07/23/2022 6:20 PM
--- NOTE | 2022-07-23 18:26 | CT Scan Report ---
CT SCAN OF THE FACIAL BONES WITHOUT IV CONTRAST CLINICAL HISTORY: Fall. Facial injury. COMPARISON STUDY: CT of the brain performed concurrently on 07/23/2022. TECHNIQUE: High-resolution CT scan of the facial bones is performed. Images are reviewed in the axia l, sagittal, and coronal planes. IV contrast was not administered for this examination. A dose lower ing technique was utilized adhering to the principles of ALARA. CT DOSE: 1002.77 mGy.cm FINDINGS: The skeletal structures are osteopenia. There is no evidence of facial bone fracture. The b tony orbits are intact and the orbital contents are within normal limits noting bilateral ocular lens implants. The zygomatic arches, nasal bones, and pterygoid plates are preserved. The maxilla and sindy ible are intact. Degenerative change is noted in the temporomandibular joints. There are no layering blood products within the paranasal sinuses. There is opacification of the right ethmoid sinus. The r emaining paranasal sinuses are clear. The mastoid air cells are well pneumatized. The visualized calv arium and upper cervical spine are maintained. Partially imaged brain parenchyma is within normal samuels its age related involutional change. There is a right frontal scalp hematoma. Several dental caries a re identified. There are punctate calcified sialoliths in the left parotid gland. IMPRESSION: 1. There is no evidence of facial bone fracture. 2. Several dental caries are identified. Nonemergent follow-up with dental history is recommended. ACT 112: Negative or not required by law. Electronically signed by: Bobby Nelson M.D. 07/23/2022 6:25 PM
--- NOTE | 2022-07-23 18:55 | CT Scan Report ---
CT SCAN OF THE CERVICAL SPINE CLINICAL HISTORY: Trauma. Fall. COMPARISON STUDY: Cervical spine radiographs dated 08/06/2021. Chest CT dated 06/19/2010. TECHNIQUE: CT scan of the cervical spine is performed from the skull base to the upper thoracic spine . Images are reviewed in the axial, sagittal, and coronal planes. IV contrast was not administered fo r this examination. A dose lowering technique was utilized adhering to the principles of ALARA. FINDINGS: Skeletal structures: The skeletal structures are osteopenic. There is no evidence of fracture or subl uxation involving the cervical spine. Mild anterior wedging of C6 is unchanged from previous. Vertebr al body height and alignment are otherwise maintained. Anterior osteophytes are seen throughout. The odontoid process and lateral masses are intact. The atlantoaxial articulation is preserved noting ad vanced productive degenerative changes. The spinous processes appear intact. There are mild chronic s uperior endplate compression deformities of T2 and T3. There is mild to moderate multilevel cervical spondylosis. Uncovertebral and facet arthropathy contributes to neural foraminal narrowing at several levels. There is chronic posttraumatic deformity of the right clavicle. Intervertebral discs: There is moderate disc space narrowing at C5-C6 and C6-C7. Central canal: Posterior disc osteophyte complexes are seen at all cervical levels between C3-C4 and C6-C7. This may contribute to mild multilevel acquired compromise of the central canal. Soft tissues: The prevertebral and paraspinous soft tissues are within normal limits. There is athero sclerotic calcification of the carotid bulbs. A 1.6 cm peripherally calcified nodule in the left lobe of the thyroid has been present dating back to 2009 and is of doubtful significance. Calvarium: The visualized calvarium at the skull base appears intact. Brain parenchyma: Partially visualized brain parenchyma at the skull base is within normal limits. Sinuses and mastoids: The visualized paranasal sinuses are clear. The mastoid air cells are well pneu matized. Lung apices: Clear as visualized. IMPRESSION: 1. There is no evidence of fracture or subluxation involving the cervical spine. 2. Osteopenia and spondylotic change as above. ACT 112: Negative or not required by law. Electronically signed by: Bobby Nelson M.D. 07/23/2022 6:53 PM
--- NOTE | 2022-07-23 19:01 | CT Scan Report ---
CT SCAN OF THE RIGHT KNEE WITHOUT IV CONTRAST CLINICAL HISTORY: Fall with right knee injury. COMPARISON STUDY: Radiographs of the right knee dated 07/23/2022. TECHNIQUE: CT scan of the right knee is performed from the distal femoral shaft to the proximal tibia and fibula. Images are reviewed in the axial, sagittal, and coronal planes. IV contrast was not admi nistered for this examination. A dose lowering technique was utilized adhering to the principles of A DEANA. The examination is modestly degraded by motion artifact. CT DOSE: 396.98 mGy.cm FINDINGS: The skeletal structures are osteopenic. No fracture is seen. Mild to moderate tricompartmen darek degenerative change is noted. There is chondrocalcinosis within the medial and lateral compartmen ts. A small joint effusion is observed. There is prepatellar soft tissue edema/hemorrhage. A large so ft tissue hematoma is partially visualized within the anteromedial soft tissues of the distal thigh. This measures at least 7 x 7 x 4.5 cm in dimension. There is generalized atrophy of the regional musc ulature. Atherosclerotic calcification is seen in the popliteal artery. IMPRESSION: 1. No fracture is identified. 2. There is prepatellar soft tissue edema/hemorrhage with a large hematoma within the anteromedial as pect of the distal thigh as above. 3. Degenerative change and chondrocalcinosis as above. ACT 112: Negative or not required by law. Electronically signed by: Bobby Nelson M.D. 07/23/2022 6:58 PM
--- NOTE | 2022-07-23 19:33 | History & Physical Report ---
Date of Service July 23, 2022 Assessment & Plan (1) Fall: (2) Diabetic ulcer of left foot: (3) Chronic diastolic CHF (congestive heart failure): (4) CKD (chronic kidney disease) stage 3, GFR 30-59 ml/min: (5) Anemia: (6) DM type 2 (diabetes mellitus, type 2): (7) CAD (coronary artery disease): (8) Hypertension: Plan This is an 87-year-old female with PMH of CAD (s/p stent), DM II, HTN, CKD 3 and other medical problems listed below who presents to ED after fall. Fall Head CT, cervical spine CT, face CT, CXR, pelvis XR all without acute injury or abnormality (see above) R CT knee with prepatellar soft tissue edema/hemorrhage with a large hematoma within the anteromedial aspect of the distal thigh as above Dr. Roland consulted for further evaluation of knee PT/OT evaluation when appropriate Hgb at baseline ~10 Hold aspirin Pain control, fall precautions NPO @ [place] Elevated troponin Minimal elevation of 23.6 in setting of trauma. No chest pain. Trend x 1 additional lab Chronic diastolic HF Appears euvolemic. Continue home lasix CKD III Cr 1.53 at baseline (ranges from mid-high 1s). Trend with daily BMP DM II Hold home agents SSI while in-patient BSG AC HS CAD H/o FABIENNE to LAD in 2008 and cardiac cath 06/2010 revealed mild in stent restenosis with 50% stenosis elsewhere Continue statin, Toprol. Holding asa for now given R knee hematoma HTN Continue home lisinopril, Toprol DVT Ppx: SCDs for now Code status: FULL per discussion with patient PCP: Gabby Dispo: [facility] Patient seen in collaboration with Dr. Mayer. Please see addendum. History of Present Illness Chief Complaint: Fall Primary Care Provider: NO PCP This is an 87-year-old female with PMH of CAD (s/p stent), DM II, HTN, CKD 3 and other medical problems listed below who presents to ED after fall. Was watering plants on porch when her knee buckled and she fell onto R knee. Struck R side of head but denies LOC. No neck or back pain. Has some sharp pain in R knee with movement but is comfortable at rest. No pain where she hit her head. Ambulates with a walker at baseline. Patient lives alone with family at bedside. Last fall was 2 years ago. Denies fever, chills, headache, lightheadedness, CP, SOB, N/V/D, abdominal pain or dysuria. Takes baby aspirin at home. Not on anticoagulation. Allergies Allergy/AdvReac Type Severity Reaction Status Date / Time No Known Allergies Allergy Unknown Verified 02/28/22 08:56 Home Medications Medication Instructions Recorded Confirmed Type aspirin 81 mg tablet,delayed 81 mg PO QPM 09/15/18 02/28/22 History release iron,carbonyl 65 mg-vitamin C 125 1 tab PO QAM 09/15/18 02/28/22 History mg tablet,delayed release (Vitron-C) metoprolol succinate 50 mg 50 mg PO QAM 09/15/18 02/28/22 History tablet,extended release 24 hr nitroglycerin 0.4 mg sublingual 0.4 mg sublingual UD PRN chest pain 09/15/18 02/28/22 History tablet rosuvastatin 40 mg tablet 40 mg PO QPM 09/15/18 02/28/22 History cyanocobalamin (vitamin B-12) 1,500 mcg PO DAILY 09/20/18 02/28/22 History 1,000 mcg tablet lisinopril 10 mg tablet 10 mg PO QAM 09/20/18 02/28/22 History furosemide 20 mg tablet 20 mg PO QAM 08/01/19 02/28/22 History pantoprazole 40 mg tablet,delayed 40 mg PO QAM 08/01/19 02/28/22 History release linagliptin 5 mg tablet (Tradjenta) 5 mg PO QAM 03/15/21 02/28/22 History glucosamine sulfate 500 mg tablet 1,000 mg PO DAILY 10/25/21 02/28/22 History (Glucosamine) magnesium 250 mg tablet 250 mg PO DAILY 10/25/21 02/28/22 History sertraline 25 mg tablet 25 mg PO DAILY 10/25/21 02/28/22 History Past Med/Surg History Medical History Anemia CAD (coronary artery disease) 2008 - FABIENNE to LAD Chronic diastolic CHF (congestive heart failure) CKD (chronic kidney disease) stage 3, GFR 30-59 ml/min DM type 2 (diabetes mellitus, type 2) Dyslipidemia Glaucoma Hypertension Kidney stones Osteoarthritis Surgical History H/O vein stripping right leg History of appendectomy History of bilateral tubal ligation History of cardiac cath 2008 @ [facility]--follows with Dr. Her History of cataract surgery bilt eyes History of cholecystectomy History of heart artery stent 2008 @ [facility] History of surgery open incision kidney stone removal History of tonsillectomy and adenoidectomy History of total abdominal hysterectomy and bilateral salpingo-oophorectomy Status post glaucoma surgery bilt eyes Family History Brother Family history of diabetes mellitus multiple Sister Family history of diabetes mellitus multiple Mother Family history of diabetes mellitus Father Family history of diabetes mellitus Other No significant family history Social History Smoking Status: Never smoker Second Hand Exposure: No; Hx Alcohol Use: No Hx Substance Use: No Preferred Language: [place] Communication Ability: Effective Hearing Ability: Use of Hearing Aid Poultryman Required: No Beliefs That Will Affect Care: None marital status: Single Current Living Situation: Assisted Feels Safe at Home: Yes caffeine: No during the past year weight has: remained stable Assistive Devices: Hearing Aid - Bilateral Review of Systems Review of Systems: At least ten systems reviewed and negative except as noted in the HPI. Physical Exam Physical Exam: Please see Dr. Mayer's addendum for physical exam. Results & Data Results & Data ([facility]) Vital Signs (Past 12 Hours) Vital Signs Temp Pulse Pulse Resp BP BP Pulse Ox 07/23/22 18:31 64 16 144/69 H 95 07/23/22 16:51 63 16 130/77 99 07/23/22 16:51 99 07/23/22 16:07 36.6 C 60 16 148/72 H 98 O2 Del Method 07/23/22 18:31 Room Air 07/23/22 16:51 Room Air 07/23/22 16:51 Room Air 07/23/22 16:07 Room Air Laboratory Results Short CBC 07/23/22 Range/Units 16:48 WBC 7.03 (4.8-10.8) K/ul Hgb 10.2 L (12.0-16.0) g/dl Hct 32.0 L (34.1-44.9) % Plt Count 140 (130-400) K/uL BMP 07/23/22 16:48 Sodium 135 L Potassium 4.4 Chloride 103 Carbon Dioxide 26 BUN 30 H Creatinine 1.53 H Glucose 274 H Calcium 9.3 Liver Function 07/23/22 Range/Units 16:48 Total Bilirubin 0.6 (0.2-1.0) mg/dl AST 10 L (13-39) U/L ALT 5 L (7-52) U/L Alkaline Phosphatase 84 (34-104) U/L Albumin 3.8 (3.4-5.0) gm/dl Diagnostic Findings Cervical Spine CT 07/23/22 16:26 CT SCAN OF THE CERVICAL SPINE CLINICAL HISTORY: Trauma. Fall. COMPARISON STUDY: Cervical spine radiographs dated 08/06/2021. Chest CT dated 06/19/2010. TECHNIQUE: CT scan of the cervical spine is performed from the skull base to the upper thoracic spine. Images are reviewed in the axial, sagittal, and coronal planes. IV contrast was not administered for this examination. A dose lowering technique was utilized adhering to the principles of ALARA. FINDINGS: Skeletal structures: The skeletal structures are osteopenic. There is no evidence of fracture or subluxation involving the cervical spine. Mild anterior wedging of C6 is unchanged from previous. Vertebral body height and alignment are otherwise maintained. Anterior osteophytes are seen throughout. The odontoid process and lateral masses are intact. The atlantoaxial articulation is preserved noting advanced productive degenerative changes. The spinous processes appear intact. There are mild chronic superior endplate compression deformities of T2 and T3. There is mild to moderate multilevel cervical spondylosis. Uncovertebral and facet arthropathy contributes to neural foraminal narrowing at several levels. There is chronic posttraumatic deformity of the right clavicle. Intervertebral discs: There is moderate disc space narrowing at C5-C6 and C6-C7. Central canal: Posterior disc osteophyte complexes are seen at all cervical levels between C3-C4 and C6-C7. This may contribute to mild multilevel acquired compromise of the central canal. Soft tissues: The prevertebral and paraspinous soft tissues are within normal limits. There is atherosclerotic calcification of the carotid bulbs. A 1.6 cm peripherally calcified nodule in the left lobe of the thyroid has been present dating back to 2009 and is of doubtful significance. Calvarium: The visualized calvarium at the skull base appears intact. Brain parenchyma: Partially visualized brain parenchyma at the skull base is within normal limits. Sinuses and mastoids: The visualized paranasal sinuses are clear. The mastoid air cells are well pneumatized. Lung apices: Clear as visualized. IMPRESSION: 1. There is no evidence of fracture or subluxation involving the cervical spine. 2. Osteopenia and spondylotic change as above. ACT 112: Negative or not required by law. Electronically signed by: Bobby Nelson M.D. 07/23/2022 6:53 PM Chest X-Ray 07/23/22 16:26 SINGLE VIEW CHEST CLINICAL HISTORY: Fall. Atypical chest pain. FINDINGS: An AP, portable, upright chest radiograph is compared to study dated 10/25/2021. The heart is mildly enlarged noting atherosclerotic calcification of the thoracic aorta. The pulmonary vasculature is noncongested. Chronic interstitial thickening is similar to previous. The lungs and pleural spaces are clear no change in mild bibasilar scarring/atelectasis. No pneumothorax is seen. The skeletal structures are osteopenic. The bony thorax is grossly intact. Cho lecystectomy clips are noted in the right upper quadrant. IMPRESSION: No active disease in the chest. ACT 112: Negative or not required by law. Electronically signed by: Bobby Nelson M.D. 07/23/2022 6:[address] 07/23/22 16:26 CT SCAN OF THE BRAIN WITHOUT IV CONTRAST CLINICAL HISTORY: Fall. COMPARISON STUDY: CT of the brain dated 03/15/2021. TECHNIQUE: Unenhanced axial CT scan of the brain is performed from the vertex to the skull base. A dose lowering technique was utilized adhering to the principles of ALARA. FINDINGS: Brain parenchyma: There is age-related involutional change noting mild subcortical and periventricular microangiopathic disease. There is no hemorrhage, mass effect, or evidence of acute territorial ischemia by CT cr iteria. Maharaj-white matter differentiation is preserved. No extra-axial fluid collection is seen. Ventricles, sulci, cisterns: Prominent secondary to involutional change. Intracranial vasculature: There is atherosclerotic calcification of the cavernous carotid arteries. Calvarium: The skeletal structures are osteopenic. No depressed calvarial fracture is identified. Soft tissues: There is a right frontal scalp hematoma. Sinuses and mastoids: There is opacification of a right anterior ethmoid sinus. The remaining paranasal sinuses are clear. The mastoid air cells are well pneumatized. Orbits: The bony orbits are grossly intact. There are bilateral ocular lens implants. IMPRESSION: There is no hemorrhage, mass effect, or evidence of acute territorial ischemia by CT criteria. ACT 112: Negative or not required by law. Electronically signed by: Bobby Nelson M.D. 07/23/2022 6:20 PM Knee X-Ray 07/23/22 16:26 RIGHT KNEE 2 VIEWS CLINICAL HISTORY: Fall. FINDINGS: AP and crosstable lateral views of the right knee are obtained. No prior studies are available for comparison at the time of dictation. The skeletal structures are osteopenic. No fracture is seen. There is mild to moderate tricompartmental degenerative joint space narrowing. Chondrocalcinosis is seen in the medial and lateral compartments. There are small marginal oste ophytes and tiny patellar enthesophytes. Joint effusion is noted. There is marked prepatellar soft tissue swelling. IMPRESSION: 1. Prepatellar soft tissue swelling and joint effusion with no fracture identified. 2. Osteopenia with degenerative change and chondrocalcinosis as above. Electronically signed by: Bobby Nelson M.D. 07/23/2022 6:11 PM Pelvis X-Ray 07/23/22 16:26 SINGLE VIEW PELVIS CLINICAL HISTORY: Fall. Hip pain. FINDINGS: AP view of the pelvis is compared to study dated 07/28/2021. The skeletal structures are osteopenic. There is no radiographic evidence of acute fracture involving the hips or bony pelvis. Moderate arthritic change and joint space narrowing is seen in both hips. Degenerative sclerosis is seen in the sacroiliac joints and pubic symphysis. Lumbosacral spondylosis is partially visualized. A phlebolith is again seen in left hemipelvis. The overlying soft tissues are normal as imaged. IMPRESSION: No acute bony abnormality is identified. Electronically signed by: Bobby Nelson M.D. 07/23/2022 6:[address] 07/23/22 17:59 CT SCAN OF THE FACIAL BONES WITHOUT IV CONTRAST CLINICAL HISTORY: Fall. Facial injury. COMPARISON STUDY: CT of the brain performed concurrently on 07/23/2022. TECHNIQUE: High-resolution CT scan of the facial bones is performed. Images are reviewed in the axial, sagittal, and coronal planes. IV contrast was not administered for this examination. A dose lowering technique was utilized adhering to the principles of ALARA. CT DOSE: 1002.77 mGy.cm FINDINGS: The skeletal structures are osteopenia. There is no evidence of facial bone fracture. The bony orbits are intact and the orbital contents are within normal limits noting bilateral ocular lens implants. The zygomatic arches, nasal bones, and pterygoid plates are preserved. The maxilla and mandible are intact. Degenerative change is noted in the temporomandibular joints. There are no laye ring blood products within the paranasal sinuses. There is opacification of the right ethmoid sinus. The remaining paranasal sinuses are clear. The mastoid air cells are well pneumatized. The visualized calvarium and upper cervical spine are maintained. Partially imaged brain parenchyma is within normal limits age related involutional change. There is a right frontal scalp hematoma. Several dental caries are identified. There are punctate calcified sialoliths in the left parotid gland. IMPRESSION: 1. There is no evidence of facial bone fracture. 2. Several dental caries are identified. Nonemergent follow-up with dental history is recommended. ACT 112: Negative or not required by law. Electronically signed by: Bobby Nelson M.D. 07/23/2022 6:[address] 07/23/22 18:18 CT SCAN OF THE RIGHT KNEE WITHOUT IV CONTRAST CLINICAL HISTORY: Fall with right knee injury. COMPARISON STUDY: Radiographs of the right knee dated 07/23/2022. TECHNIQUE: CT scan of the right knee is performed from the distal femoral shaft to the proximal tibia and fibula. Images are reviewed in the axial, sagittal, and coronal planes. IV contrast was not administered for this examination. A dose lowering technique was utilized adhering to the principles of ALARA. The examination is modestly degraded by motion artifact. CT DOSE: 396.98 mGy.cm FINDINGS: The skeletal structures are osteopenic. No fracture is seen. Mild to moderate tricompartmental degenerative change is noted. There is chondrocalcinosis within the medial and lateral compartments. A small joint effusion is observed. There is prepatellar soft tissue edema/hemorrhage. A large soft tissue hematoma is partially visualized within the anteromedial soft tissues of the distal thigh. This measures at least 7 x 7 x 4.5 cm in dimension. There is generalized atrophy of the regional musculature. Atherosclerotic calcification is seen in the popliteal artery. IMPRESSION: 1. No fracture is identified. 2. There is prepatellar soft tissue edema/hemorrhage with a large hematoma within the anteromedial aspect of the distal thigh as above. 3. Degenerative change and chondrocalcinosis as above. ACT 112: Negative or not required by law. Electronically signed by: Bobby Nelson M.D. 07/23/2022 6:58 PM Supervising Physician Co-Signing Physician Notes 87-year-old lady with PMH of CAD, DM type II, HTN, CKD stage III presented to the ED after fall while trying to turn and sit in her chair and fell on wooden floor on her porch hitting her right knee and right face mostly. In the ED she was found to have right knee effusion with swelling/hematoma surrounding, also patient does have right eye ecchymosis. Patient denied any chest pain/palpitations/dizziness/loss of consciousness/involuntary loss of bowel or bladder surrounding the event. Admitting labs reviewed, fairly WNL, troponin mildly elevated likely secondary to acute distress, trend troponins, pt w/ no chest pain, admitting EKG with normal sinus rhythm. Orthopedics consult for right knee effusion/likely hemarthrosis. Hold home aspirin or heparin Px, continue to monitor hematoma. On sliding scale insulin while inpatient. PT/OT when able. Right knee CT with swelling/joint effusion/thigh hematoma. Rest of the admitting imagings with no acute findings. Upon examination: GENERAL: Alert and oriented x3. NAD, on RA. HEENT: No pallor, no icterus. Pupils equal, round and reactive to light. Oral mucosa moist. Right periorbital ecchymosis noted, nontender eye movement. NECK: No JVD, no neck masses. HEART: S1 and S2 heard. Regular rate and rhythm. No murmur, no gallop. RESPIRATORY SYSTEM: Normal AP diameter. No accessory muscle use. No wheezing, no crackles. ABDOMEN: Soft, bowel sounds present, nontender, no distention. CENTRAL NERVOUS SYSTEM: No facial droop. Speech is clear. Obeys simple commands. Moves extremities. EXTREMITIES: No pitting BLE edema, Small bruise on left medial knee, right knee swollen/tender/ecchymotic/decreased range of motion with passive movement. Small superficial laceration over patella x right with clean dressing. I have seen and examined the patient and have discussed the case with the provider above. I agree with the assessment and plan as stated. (1) CAD (coronary artery disease) Associated angina: with unspecified angina Coronary Disease-Associated Artery/Lesion type: [place] artery [place] vs. transplanted heart: [place] heart Qualified Code(s): I25.119 - Atherosclerotic heart disease of [place] coronary artery with unspecified angina pectoris
[2022-07-23] MEDS ORDERED: ALUMINUM/MAGNESIUM SUSP 30 ML UDC PO PRN (19:37)
[2022-07-23] MEDS ORDERED: POLYETHYLENE (MIRALAX) 17 GM PACK PO PRN (19:37)
[2022-07-23] MEDS ORDERED: ACETAMINOPHEN 325 MG TAB PO PRN (19:37)
[2022-07-23] MEDS ORDERED: GLUCAGON FOR INJ 1 MG VIAL SQ PRN (20:00)
[2022-07-23] MEDS ORDERED: CARBOHYDRATES FOR HYPOGLYCEMIA PO PRN (20:00)
[2022-07-23] MEDS ORDERED: DEXTROSE 50% 50 ML SYRINGE IV PRN (20:00)
[2022-07-23] MEDS ORDERED: GLUCOSE 10 TAB/TUBE PO PRN (20:00)
[2022-07-23] MEDS ORDERED: GLUCOSE 40% GEL 15 GM TUBE PO PRN (20:00)
[2022-07-23] MEDS ORDERED: MoRPHine SULFATE 4 MG/ML 1 ML CARP\\VIAL IV PRN (20:05)
[2022-07-23] MEDS: LANTUS PER UNIT CHARGE SQ SCH (22:22)
[2022-07-23] MEDS: INSULIN ASPART PER UNIT SC SCH (22:22)
[2022-07-23] MEDS: ROSUVASTATIN CALCIUM 20 MG TAB PO SCH (23:32)
[2022-07-24 06:43] LABS: Hemoglobin 8.5 g/dl (12.0-16.0); Mean Corpuscular Hemoglobin 29.8 pg (25.0-34.0); Mean Corpuscular Hgb Conc 31.5 g/dL (32.0-36.0); Mean Corpuscular Volume 94.7 fL (80.0-100.0); Mean Platelet Volume 10.3 fL (9.4-12.3); Platelet Count 126 K/uL (130-400); RDW Coefficient of Variation 12.8 % (11.5-14.5); RDW Standard Deviation 44.3 fL (36.4-46.3); Red Blood Count 2.85 M/uL (3.93-5.22); White Blood Count 5.54 K/ul (4.8-10.8)
[2022-07-24 07:05] LABS: BUN Creatinine Ratio 21.9 (10-20); Calcium 8.9 mg/dl (8.5-10.1); Creatinine Clr Calc Pharmacy 31.7 ml/min; Est GFR (African American) 43.5 ml/min; Est GFR (Non-African American) 37.6 ml/min; Phosphorus 3.7 mg/dl (2.5-4.9); Potassium 4.2 mmol/L (3.5-5.1)
[2022-07-24 07:22] LABS: Estimated Average Glucose 174 mg/dl; Hemoglobin A1C 7.7 % (4.5-5.6)
[2022-07-24] MEDS ORDERED: lisinopril 10 MG TAB PO SCH (09:00)
[2022-07-24] MEDS: INSULIN ASPART PER UNIT SC SCH ×4 (09:21→21:17)
[2022-07-24] MEDS: LANTUS PER UNIT CHARGE SQ SCH ×2 (09:21→21:12)
--- NOTE | 2022-07-24 12:16 | Orthopedic Consultation ---
Date of Consultation July 24, 2022 Assessment & Plan (1) Hematoma: Hematoma anteromedial aspect right knee status post fall. Currently patient is weightbearing as tolerated on the right lower extremity. Patient ambulated 200 feet today with physical therapy without difficulty. She denies pain with weightbearing and she has range of motion of the right knee to least [address] noted hematoma to be 7 x 7 x 4-1/2 cm. With her ability to ambulate well and little discomfort, there is likely no need for surgical intervention at this time. Continue ice to the right knee over the next 24 to 48 hours and switch over to warm moist compresses or warm heat thereafter. Elevation of the right lower extremity when at rest. Consider Wesley wrap of right knee. Case will be discussed with Dr. Plasencia who will see her later this afternoon. Consider limiting activity today, resuming regular activity tomorrow. Patient states that she takes aspirin daily which can be restarted in the next 48 hours. History of Present Illness Reason for Consultation: Right knee hematoma Attending Physician: Enoc Barnes MD History of Present Illness Patient is an 87-year-old female with PMH of CAD (s/p stent), DM II, HTN, CKD 3 and other medical problems that came to the emergency room after a fall. Patient was watering plants on porch when her knee buckled and she fell onto R knee. Struck R side of head but denies LOC. Patient started having increased pain in around the right knee with noted swelling and bruising and her family brought her to the emergency room. She denies any shortness of breath, chest pain, lightheadedness prior to or after the fall. She was seen by the emergency room staff and x-rays were taken. No fractures or dislocations were noted. CT scan was performed of the right knee and noted a hematoma that was on the anteromedial aspect of the knee. Mild joint effusion was also noted. She was admitted for further care and we have been asked to see her for hematoma. Currently she is sitting in her chair awake and alert. She answers all questions appropriately. She appears comfortable. Allergies Allergy/AdvReac Type Severity Reaction Status Date / Time No Known Allergies Allergy Unknown Verified 07/23/22 21:25 Home Medications Medication Instructions Recorded Confirmed Type aspirin 81 mg tablet,delayed 81 mg PO QPM 09/15/18 07/23/22 History release iron,carbonyl 65 mg-vitamin C 125 1 tab PO QAM 09/15/18 07/23/22 History mg tablet,delayed release (Vitron-C) metoprolol succinate 50 mg 50 mg PO QAM 09/15/18 07/23/22 History tablet,extended release 24 hr nitroglycerin 0.4 mg sublingual 0.4 mg sublingual UD PRN chest pain 09/15/18 07/23/22 History tablet rosuvastatin 40 mg tablet 40 mg PO QPM 09/15/18 07/23/22 History cyanocobalamin (vitamin B-12) 1,500 mcg PO DAILY 09/20/18 07/23/22 History 1,000 mcg tablet lisinopril 10 mg tablet 10 mg PO QAM 09/20/18 07/23/22 History pantoprazole 40 mg tablet,delayed 40 mg PO QAM 08/01/19 07/23/22 History release linagliptin 5 mg tablet (Tradjenta) 5 mg PO QAM 03/15/21 07/23/22 History glucosamine sulfate 500 mg tablet 1,000 mg PO DAILY 10/25/21 07/23/22 History (Glucosamine) magnesium 250 mg tablet 250 mg PO DAILY 10/25/21 07/23/22 History sertraline 25 mg tablet 25 mg PO DAILY 10/25/21 07/23/22 History latanoprost 0.005 % eye drops 1 drp OPB HS 07/23/22 07/23/22 History Patient History Medical History Anemia CAD (coronary artery disease) 2008 - FABIENNE to LAD Chronic diastolic CHF (congestive heart failure) CKD (chronic kidney disease) stage 3, GFR 30-59 ml/min DM type 2 (diabetes mellitus, type 2) Dyslipidemia Glaucoma Hypertension Kidney stones Osteoarthritis Surgical History H/O vein stripping right leg History of appendectomy History of bilateral tubal ligation History of cardiac cath 2008 @ [facility]--follows with Dr. Her History of cataract surgery bilt eyes History of cholecystectomy History of heart artery stent 2008 @ [facility] History of surgery open incision kidney stone removal History of tonsillectomy and adenoidectomy History of total abdominal hysterectomy and bilateral salpingo-oophorectomy Status post glaucoma surgery bilt eyes Family History Brother Family history of diabetes mellitus multiple Sister Family history of diabetes mellitus multiple Mother Family history of diabetes mellitus Father Family history of diabetes mellitus Other No significant family history Social History Smoking Status: Never smoker Second Hand Exposure: No; Hx Alcohol Use: No Hx Substance Use: No Preferred Language: [place] Communication Ability: Effective Hearing Ability: Use of Hearing Aid Television Producer Required: No Beliefs That Will Affect Care: None marital status: Single Current Living Situation: Alone Other Information That Helps Us Care for You: No Feels Safe at Home: Yes Safety Concerns: Feels Safe At This Time caffeine: No during the past year weight has: remained stable Assistive Devices: Glasses and Walker Physical Exam Physical Exam: Patient is an 87-year-old white female who appears her stated age. Alert and oriented x3, no acute distress, pleasant cooperative. On examination of her right knee she has noted ecchymosis over the anteromedial aspect of the right knee. An Optifoam dressing is noted over the patella. This is partially removed and shows a abrasion underneath. This was replaced. She has some noted blistering from her increased swelling over the medial aspect of the knee. She is tender on palpation of the area that is swollen. She has some mild tenderness on palpation over the lateral aspect as well. She is able to take the right knee through gentle range of motion actively and passively without discomfort. Patient states that she is able to weight-bear as tolerated on the right lower extremity without discomfort. She apparently was up with physical therapy this morning and ambulated over 200 feet without difficulty. She experienced no buckling of the right knee. He has some mild laxity of the knee at this time. Upper thigh is soft and nontender. Calves are soft nontender. Neurovascular appears intact. She has good dorsiflexion plantarflexion of the right foot. Sensation appears to be intact. Patient denies any cervical, thoracic, lumbar discomfort at this time. Results & Data ([facility]) Vital Signs (Past 12 Hours) Vital Signs Temp Pulse Pulse Resp BP Pulse Ox O2 Del Method 07/24/22 12:01 87 17 102/65 97 Room Air 07/24/22 07:48 57 L 07/24/22 06:43 36.5 C 58 L 18 107/66 96 Room Air 07/24/22 03:06 36.6 C 63 18 111/68 97 Room Air Laboratory Results Laboratory Results WBC 5.54 K/ul (4.8-10.8) 07/24/22 06:18 RBC 2.85 M/uL (3.93-5.22) L 07/24/22 06:18 Hgb 8.5 g/dl (12.0-16.0) L 07/24/22 06:18 Hct 27.0 % (34.1-44.9) L 07/24/22 06:18 MCV 94.7 fL (80.0-100.0) 07/24/22 06:18 MCH 29.8 pg (25.0-34.0) 07/24/22 06:18 MCHC 31.5 g/dL (32.0-36.0) L 07/24/22 06:18 RDW Std Deviation 44.3 fL (36.4-46.3) 07/24/22 06:18 RDW Coeff of Blanca 12.8 % (11.5-14.5) 07/24/22 06:18 Plt Count 126 K/uL (130-400) L 07/24/22 06:18 MPV 10.3 fL (9.4-12.3) 07/24/22 06:18 Immature Gran % (Auto) 0.3 % 07/23/22 16:48 Neut % (Auto) 79.9 % 07/23/22 16:48 Lymph % (Auto) 11.4 % 07/23/22 16:48 Benton % (Auto) 8.0 % 07/23/22 16:48 Eos % (Auto) 0.0 % 07/23/22 16:48 Baso % (Auto) 0.4 % 07/23/22 16:48 Neut # (Auto) 5.62 K/uL (1.4-6.5) 07/23/22 16:48 Lymph # (Auto) 0.80 K/uL (1.2-3.4) L 07/23/22 16:48 Benton # (Auto) 0.56 K/uL (0.24-0.82) 07/23/22 16:48 Eos # (Auto) 0.00 K/uL (0-0.50) 07/23/22 16:48 Baso # (Auto) 0.03 K/uL (0-0.2) 07/23/22 16:48 Immature Gran # (Auto) 0.02 K/uL (0.00-0.02) 07/23/22 16:48 PT 10.3 Seconds (9.0-12.0) 07/23/22 16:48 INR 1.0 (0.9-1.1) 07/23/22 16:48 APTT 25.1 Seconds (21.0-31.0) 07/23/22 16:48 PTT Ratio 0.9 07/23/22 16:48 Sodium 137 mmol/L (136-145) 07/24/22 06:18 Potassium 4.2 mmol/L (3.5-5.1) 07/24/22 06:18 Chloride 107 mmol/L (98-107) 07/24/22 06:18 Carbon Dioxide 28 mmol/L (21-32) 07/24/22 06:18 Anion Gap 2 (3-11) L 07/24/22 06:18 BUN 28 mg/dl (6-23) H 07/24/22 06:18 Creatinine 1.28 mg/dl (0.6-1.2) H 07/24/22 06:18 Est Cr Clr Drug Dosing 31.7 ml/min 07/24/22 06:18 Est GFR ( Amer) 43.5 ml/min 07/24/22 06:18 Est GFR (Non-Af Amer) 37.6 ml/min 07/24/22 06:18 BUN/Creatinine Ratio 21.9 (10-20) H 07/24/22 06:18 Glucose 160 mg/dl (70-99(Fasting)) H 07/24/22 06:18 POC Glucose 161 mg/dl (70-99) H 07/24/22 11:36 Estimat Average Glucose 174 mg/dl 07/24/22 06:18 Hemoglobin A1c 7.7 % (4.5-5.6) H 07/24/22 06:18 Calcium 8.9 mg/dl (8.5-10.1) 07/24/22 06:18 Phosphorus 3.7 mg/dl (2.5-4.9) 07/24/22 06:18 Magnesium 2.0 mg/dl (1.7-2.4) 07/24/22 06:18 Total Bilirubin 0.6 mg/dl (0.2-1.0) 07/23/22 16:48 AST 10 U/L (13-39) L 07/23/22 16:48 ALT 5 U/L (7-52) L 07/23/22 16:48 Alkaline Phosphatase 84 U/L (34-104) 07/23/22 16:48 Troponin I High Sens 26.8 pg/ml (0-14) H 07/23/22 23:14 Total Protein 6.4 gm/dl (6.0-8.3) 07/23/22 16:48 Albumin 3.8 gm/dl (3.4-5.0) 07/23/22 16:48 Globulin 2.6 gm/dl (2.5-4.0) 07/23/22 16:48 Albumin/Globulin Ratio 1.5 (0.9-2) 07/23/22 16:48 Lipase 55 U/L (11-82) 07/23/22 16:48 SARS-CoV-2, RNA, NAAT NEGATIVE (NEGATIVE) 07/23/22 16:[address] 07/23/22 16:26 CT SCAN OF THE CERVICAL SPINE CLINICAL HISTORY: Trauma. Fall. COMPARISON STUDY: Cervical spine radiographs dated 08/06/2021. Chest CT dated 06/19/2010. TECHNIQUE: CT scan of the cervical spine is performed from the skull base to the upper thoracic spine. Images are reviewed in the axial, sagittal, and coronal planes. IV contrast was not administered for this examination. A dose lowering technique was utilized adhering to the principles of ALARA. FINDINGS: Skeletal structures: The skeletal structures are osteopenic. There is no evidence of fracture or subluxation involving the cervical spine. Mild anterior wedging of C6 is unchanged from previous. Vertebral body height and alignment are otherwise maintained. Anterior osteophytes are seen throughout. The odontoid process and lateral masses are intact. The atlantoaxial articulation is preserved noting advanced productive degenerative changes. The spinous processes appear intact. There are mild chronic superior endplate compression deformities of T2 and T3. There is mild to moderate multilevel cervical spondylosis. Uncovertebral and facet arthropathy contributes to neural foraminal narrowing at several levels. There is chronic posttraumatic deformity of the right clavicle. Intervertebral discs: There is moderate disc space narrowing at C5-C6 and C6-C7. Central canal: Posterior disc osteophyte complexes are seen at all cervical levels between C3-C4 and C6-C7. This may contribute to mild multilevel acquired compromise of the central canal. Soft tissues: The prevertebral and paraspinous soft tissues are within normal limits. There is atherosclerotic calcification of the carotid bulbs. A 1.6 cm peripherally calcified nodule in the left lobe of the thyroid has been present dating back to 2009 and is of doubtful significance. Calvarium: The visualized calvarium at the skull base appears intact. Brain parenchyma: Partially visualized brain parenchyma at the skull base is within normal limits. Sinuses and mastoids: The visualized paranasal sinuses are clear. The mastoid air cells are well pneumatized. Lung apices: Clear as visualized. IMPRESSION: 1. There is no evidence of fracture or subluxation involving the cervical spine. 2. Osteopenia and spondylotic change as above. ACT 112: Negative or not required by law. Electronically signed by: Bobby Nelson M.D. 07/23/2022 6:53 PM Chest X-Ray 07/23/22 16:26 SINGLE VIEW CHEST CLINICAL HISTORY: Fall. Atypical chest pain. FINDINGS: An AP, portable, upright chest radiograph is compared to study dated 10/25/2021. The heart is mildly enlarged noting atherosclerotic calcification of the thoracic aorta. The pulmonary vasculature is noncongested. Chronic interstitial thickening is similar to previous. The lungs and pleural spaces are clear no change in mild bibasilar scarring/atelectasis. No pneumothorax is seen. The skeletal structures are osteopenic. The bony thorax is grossly intact. Cholecystectomy clips are noted in the right upper quadrant. IMPRESSION: No active disease in the chest. ACT 112: Negative or not required by law. Electronically signed by: Bobby Nelson M.D. 07/23/2022 6:[address] 07/23/22 16:26 CT SCAN OF THE BRAIN WITHOUT IV CONTRAST CLINICAL HISTORY: Fall. COMPARISON STUDY: CT of the brain dated 03/15/2021. TECHNIQUE: Unenhanced axial CT scan of the brain is performed from the vertex to the skull base. A dose lowering technique was utilized adhering to the principles of ALARA. FINDINGS: Brain parenchyma: There is age-related involutional change noting mild subcortical and periventricular microangiopathic disease. There is no hemorrhage, mass effect, or evidence of acute territorial ischemia by CT criteria. Maharaj-white matter differentiation is preserved. No extra-axial fluid collection is seen. Ventricles, sulci, cisterns: Prominent secondary to involutional change. Intracranial vasculature: There is atherosclerotic calcification of the cavernous carotid arteries. Calvarium: The skeletal structures are osteopenic. No depressed calvarial fracture is identified. Soft tissues: There is a right frontal scalp hematoma. Sinuses and mastoids: There is opacification of a right anterior ethmoid sinus. The remaining paranasal sinuses are clear. The mastoid air cells are well pneumatized. Orbits: The bony orbits are grossly intact. There are bilateral ocular lens implants. IMPRESSION: There is no hemorrhage, mass effect, or evidence of acute territorial ischemia by CT criteria. ACT 112: Negative or not required by law. Electronically signed by: Bobby Nelson M.D. 07/23/2022 6:20 PM Knee X-Ray 07/23/22 16:26 RIGHT KNEE 2 VIEWS CLINICAL HISTORY: Fall. FINDINGS: AP and crosstable lateral views of the right knee are obtained. No prior studies are available for comparison at the time of dictation. The skeletal structures are osteopenic. No fracture is seen. There is mild to moderate tricompartmental degenerative joint space narrowing. Chondrocalcinosis is seen in the medial and lateral compartments. There are small marginal osteophytes and tiny patellar enthesophytes. Joint effusion is noted. There is marked prepatellar soft tissue swelling. IMPRESSION: 1. Prepatellar soft tissue swelling and joint effusion with no fracture identified. 2. Osteopenia with degenerative change and chondrocalcinosis as above. Electronically signed by: Bobby Nelson M.D. 07/23/2022 6:11 PM Pelvis X-Ray 07/23/22 16:26 SINGLE VIEW PELVIS CLINICAL HISTORY: Fall. Hip pain. FINDINGS: AP view of the pelvis is compared to study dated 07/28/2021. The skeletal structures are osteopenic. There is no radiographic evidence of acute fracture involving the hips or bony pelvis. Moderate arthritic change and joint space narrowing is seen in both hips. Degenerative sclerosis is seen in the sacroiliac joints and pubic symphysis. Lumbosacral spondylosis is partially visualized. A phlebolith is again seen in left hemipelvis. The overlying soft tissues are normal as imaged. IMPRESSION: No acute bony abnormality is identified. Electronically signed by: Bobby Nelson M.D. 07/23/2022 6:[address] 07/23/22 18:18 CT SCAN OF THE RIGHT KNEE WITHOUT IV CONTRAST CLINICAL HISTORY: Fall with right knee injury. COMPARISON STUDY: Radiographs of the right knee dated 07/23/2022. TECHNIQUE: CT scan of the right knee is performed from the distal femoral shaft to the proximal tibia and fibula. Images are reviewed in the axial, sagittal, and coronal planes. IV contrast was not administered for this examination. A dose lowering technique was utilized adhering to the principles of ALARA. The examination is modestly degraded by motion artifact. CT DOSE: 396.98 mGy.cm FINDINGS: The skeletal structures are osteopenic. No fracture is seen. Mild to moderate tricompartmental degenerative change is noted. There is chondrocalcinosis within the medial and lateral compartments. A small joint effusion is observed. There is prepatellar soft tissue edema/hemorrhage. A large soft tissue hematoma is partially visualized within the anteromedial soft tissues of the distal thigh. This measures at least 7 x 7 x 4.5 cm in dimension. There is generalized atrophy of the regional musculature. Atherosclerotic bijal cification is seen in the popliteal artery. IMPRESSION: 1. No fracture is identified. 2. There is prepatellar soft tissue edema/hemorrhage with a large hematoma within the anteromedial aspect of the distal thigh as above. 3. Degenerative change and chondrocalcinosis as above. ACT 112: Negative or not required by law. Electronically signed by: Bobby Nelson M.D. 07/23/2022 6:58 PM
--- NOTE | 2022-07-24 13:06 | Electrocardiogram Report ---
Test Reason : Blood Pressure : / mmHG Vent. Rate : 066 BPM Atrial Rate : 066 BPM P-R Int : 170 ms QRS Dur : 100 ms QT Int : 430 ms P-R-T Axes : 054 -39 044 degrees QTc Int : 450 ms Normal sinus rhythm Left axis deviation Poor R wave progression, consider anterior NE vs. lead placement vs. LVH Abnormal ECG When compared with ECG of 25-OCT-2021 09:40, No significant change was found Confirmed by Cesario Verdin ([id number]) on 07/24/2022 1:05:49 PM Referred By: REFERRED SELF Confirmed By:Cesario Verdin
[2022-07-24] MEDS: FUROSEMIDE 20 MG TAB PO SCH (17:11)
[2022-07-24] MEDS: METOPROLOL SUCC 50MG EXT REL TAB PO SCH (17:11)
--- NOTE | 2022-07-24 17:51 | Hospitalist Progress Note ---
Date of Service July 24, 2022 Assessment & Plan (1) Fall: (2) Diabetic ulcer of left foot: (3) Chronic diastolic CHF (congestive heart failure): (4) CKD (chronic kidney disease) stage 3, GFR 30-59 ml/min: (5) Anemia: (6) DM type 2 (diabetes mellitus, type 2): (7) CAD (coronary artery disease): (8) Hypertension: Plan per admitting service notes with addendum: This is an 87-year-old female with PMH of CAD (s/p stent), DM II, HTN, CKD 3 and other medical problems listed below who presents to ED after fall. Fall Head CT, cervical spine CT, face CT, CXR, pelvis XR all without acute injury or abnormality (see above) R CT knee with prepatellar soft tissue edema/hemorrhage with a large hematoma within the anteromedial aspect of the distal thigh as above Dr. Roland consulted for further evaluation of knee PT/OT evaluation when appropriate Hgb at baseline ~10 Hold aspirin Pain control, fall precautions NPO @ [place] 07/24 evaluated by Ortho: no surgery recommended hold ASA Hg 10 to 8.5, repeat in AM Elevated troponin Minimal elevation of 23.6 in setting of trauma. No chest pain. Trend x 1 additional lab repeat Hg 26 no cardiac symptoms Chronic diastolic HF Appears euvolemic. Continue home lasix CKD III Cr 1.53 at baseline (ranges from mid-high 1s). DM II Hold home agents SSI while in-patient BSG AC HS CAD H/o FABIENNE to LAD in 2008 and cardiac cath 06/2010 revealed mild in stent restenosis with 50% stenosis elsewhere Continue statin, Toprol. Holding asa for now given R knee hematoma --> will need to hold for at least 2-3 days HTN Continue home lisinopril, Toprol DVT Ppx: SCDs for now Code status: FULL per discussion with patient PCP: Gabby Dispo: PT recommending patient can return home anticipate d/c home tomorrow Admission and Anticipated Discharge Date Admission Date: July 23, 2022 Subjective ff up for right knee hematoma, etc seen resting in bed, comfortable sitting up states she feels fine overall minimal R Knee discomfort able to ambulate in the halls today denies headache, dizziness, nausea no chest pain, dyspnea, palpitations no other pain eating fine no other symptoms Review of Systems Review of Systems: all noted and negative except for above Physical Exam Physical Exam: General- oriented x 3, not in distress, speaks in sentences with no effort or accessory muscle use Eyes- anicteric (+) hematoma- lateral aspect of right eye no conjunctival hemorrhage Neck- no JVD Lungs- clear breath sounds bilaterally, no rales/wheezes Heart- normal rate, regular rhythm; no murmurs Abdomen- normal bowel sounds, nondistended, soft, nontender Extremities- no pretibial edema, no calf tenderness R knee- (+) hematoma, small blister mild tenderness no warmth Neuro- alert, oriented x 3; no gross focal neurologic deficits Skin- warm & dry Results & Data Results & Data ([facility]) Vital Signs (Past 12 Hours) Vital Signs Temp Pulse Pulse Resp BP Pulse Ox O2 Del Method 07/24/22 16:51 70 07/24/22 14:32 36.2 C L 82 18 122/78 96 Room Air 07/24/22 14:22 36.5 C 106 H 17 98/56 L 90 Room Air 07/24/22 12:01 87 17 102/65 97 Room Air 07/24/22 07:48 57 L 07/24/22 06:43 36.5 C 58 L 18 107/66 96 Room Air all noted and reviewed including below (1) CAD (coronary artery disease) Associated angina: with unspecified angina Coronary Disease-Associated Artery/Lesion type: [place] artery [place] vs. transplanted heart: [place] heart Qualified Code(s): I25.119 - Atherosclerotic heart disease of [place] coronary artery with unspecified angina pectoris
[2022-07-24] MEDS: ROSUVASTATIN CALCIUM 20 MG TAB PO SCH (21:11)
[2022-07-24] MEDS: MoRPHine SULFATE 4 MG/ML 1 ML CARP\\VIAL IV PRN (22:46)
[2022-07-25] MEDS: MoRPHine SULFATE 4 MG/ML 1 ML CARP\\VIAL IV PRN (05:52)
[2022-07-25 06:31] LABS: Basophils # (auto) 0.03 K/uL (0-0.2); Basophils % (auto) 0.5 %; Hematocrit (blood only) 25.7 % (34.1-44.9); Hemoglobin 8.2 g/dl (12.0-16.0); Immature Granulocytes # (auto) 0.02 K/uL (0.00-0.02); Immature Granulocytes % (auto) 0.3 %; Lymphocytes # (auto) 1.11 K/uL (1.2-3.4); Mean Corpuscular Hgb Conc 31.9 g/dL (32.0-36.0); Mean Corpuscular Volume 94.1 fL (80.0-100.0); Mean Platelet Volume 10.3 fL (9.4-12.3); Monocytes # (auto) 0.57 K/uL (0.24-0.82); Monocytes % (auto) 9.2 %; Neutrophils # (auto) 4.44 K/uL (1.4-6.5); Platelet Count 129 K/uL (130-400); RDW Coefficient of Variation 12.8 % (11.5-14.5); RDW Standard Deviation 43.9 fL (36.4-46.3); Red Blood Count 2.73 M/uL (3.93-5.22); White Blood Count 6.17 K/ul (4.8-10.8)
[2022-07-25] MEDS: INSULIN ASPART PER UNIT SC SCH ×2 (08:27→12:40)
[2022-07-25] MEDS: LANTUS PER UNIT CHARGE SQ SCH (08:33)
[2022-07-25] MEDS: FUROSEMIDE 20 MG TAB PO SCH (09:11)
[2022-07-25] MEDS: METOPROLOL SUCC 50MG EXT REL TAB PO SCH (09:11)
--- NOTE | 2022-07-25 09:23 | Hospitalist Progress Note ---
Date of Service July 25, 2022 Assessment & Plan (1) Fall: (2) Diabetic ulcer of left foot: (3) Chronic diastolic CHF (congestive heart failure): (4) CKD (chronic kidney disease) stage 3, GFR 30-59 ml/min: (5) Anemia: (6) DM type 2 (diabetes mellitus, type 2): (7) CAD (coronary artery disease): (8) Hypertension: Plan per admitting service notes with addendum: This is an 87-year-old female with PMH of CAD (s/p stent), DM II, HTN, CKD 3 and other medical problems listed below who presents to ED after fall. Fall Head CT, cervical spine CT, face CT, CXR, pelvis XR all without acute injury or abnormality (see above) R CT knee with prepatellar soft tissue edema/hemorrhage with a large hematoma within the anteromedial aspect of the distal thigh as above Dr. Roland consulted for further evaluation of knee PT/OT evaluation when appropriate Hgb at baseline ~10 Hold aspirin Pain control, fall precautions NPO @ [place] 07/25 evaluated by Ortho: no surgery recommended hold ASA, resume on 07/27/2022 Hg 10 to 8.5, today 8.2 Continue ice pack twice a day No NSAIDs Follow-up with PCP in 1 week Elevated troponin Minimal elevation of 23.6 in setting of trauma. No chest pain. Trend x 1 additional lab repeat Hg 26 no cardiac symptoms Chronic diastolic HF Appears euvolemic. Continue home lasix CKD III Cr 1.53 at baseline (ranges from mid-high 1s). DM II A1c 7.7 Continue home regimen CAD H/o FABIENNE to LAD in 2008 and cardiac cath 06/2010 revealed mild in stent restenosis with 50% stenosis elsewhere Continue statin, Toprol. Holding asa for now given R knee hematoma --> resume aspirin July 27, 2022 HTN Continue home lisinopril, Toprol Dispo: PT recommending patient can return home Discharge to home Follow-up with PCP in 1 week Admission and Anticipated Discharge Date Admission Date: July 23, 2022 Subjective Follow-up right knee hematoma, status post fall, etc. Seen resting in bed, comfortable, sitting up, in good spirits States she feels fine overall Has mild pain on the right knee Has not ambulated yet in the room today Denies any other pain in her body no chest pain, dyspnea, palpitations, dizziness No other symptoms States she is ready for discharge today Review of Systems Review of Systems: all noted and negative except for above Physical Exam Physical Exam: General- oriented x 3, not in distress, speaks in sentences with no effort or accessory muscle use Eyes- anicteric Positive periorbital hematoma, right eye No conjunctival hemorrhage No visual changes Neck- no JVD Lungs- clear breath sounds bilaterally, no rales/wheezes Heart- normal rate, regular rhythm; no murmurs Abdomen- normal bowel sounds, nondistended, soft, nontender Extremities-right knee: Significant hematoma covering the whole right knee, no erythema/warmth/tenderness, small blister on the center Left knee: Faint hematoma on the medial aspect, no erythema/warmth/tenderness Neuro- alert, oriented x 3; no gross focal neurologic deficits Skin- warm & dry Results & Data Results & Data ([facility]) Vital Signs (Past 12 Hours) Vital Signs Temp Pulse Pulse Resp BP BP Pulse Ox 07/25/22 07:55 36.6 C 73 17 104/67 92 07/25/22 04:16 65 07/25/22 04:00 36.6 C 66 20 105/67 94 07/24/22 22:00 36.7 C 67 20 103/65 94 O2 Del Method 07/25/22 07:55 Room Air 07/25/22 04:16 07/25/22 04:00 Room Air 07/24/22 22:00 Room Air all noted and reviewed including below (1) CAD (coronary artery disease) Associated angina: with unspecified angina Coronary Disease-Associated Artery/Lesion type: [place] artery [place] vs. transplanted heart: [place] heart Qualified Code(s): I25.119 - Atherosclerotic heart disease of [place] coronary artery with unspecified angina pectoris
--- NOTE | 2022-07-25 09:27 | Discharge Summary ---
Date of Service July 25, 2022 Admission HPI Per Admitting Provider This is an 87-year-old female with PMH of CAD (s/p stent), DM II, HTN, CKD 3 and other medical problems listed below who presents to ED after fall. Was watering plants on porch when her knee buckled and she fell onto R knee. Struck R side of head but denies LOC. No neck or back pain. Has some sharp pain in R knee with movement but is comfortable at rest. No pain where she hit her head. Ambulates with a walker at baseline. Patient lives alone with family at bedside. Last fall was 2 years ago. Denies fever, chills, headache, lightheadedness, CP, SOB, N/V/D, abdominal pain or dysuria. Takes baby aspirin at home. Not on anticoagulation. Discharge Data Allergies Allergy/AdvReac Type Severity Reaction Status Date / Time No Known Allergies Allergy Unknown Verified 07/23/22 21:25 Consultations 07/23/22 19:31 Consult Orthopedic Surgery Routine 07/23/22 19:35 ED Decision to Admit Stat Ordered Studies 07/23/22 16:26 CT cervical spine wo con Stat CT head/brain wo con Stat 07/23/22 17:59 CT facial bones wo con Stat 07/23/22 18:18 CT knee RT wo con Stat Hospital Course (1) Fall: (2) Diabetic ulcer of left foot: (3) Chronic diastolic CHF (congestive heart failure): (4) CKD (chronic kidney disease) stage 3, GFR 30-59 ml/min: (5) Anemia: (6) DM type 2 (diabetes mellitus, type 2): (7) CAD (coronary artery disease): (8) Hypertension: Plan per admitting service notes with addendum: This is an 87-year-old female with PMH of CAD (s/p stent), DM II, HTN, CKD 3 and other medical problems listed below who presents to ED after fall. Fall Head CT, cervical spine CT, face CT, CXR, pelvis XR all without acute injury or abnormality (see above) R CT knee with prepatellar soft tissue edema/hemorrhage with a large hematoma within the anteromedial aspect of the distal thigh as above Dr. Roland consulted for further evaluation of knee PT/OT evaluation when appropriate Hgb at baseline ~10 Hold aspirin Pain control, fall precautions NPO @ [place] 07/25 evaluated by Ortho: no surgery recommended hold ASA, resume on 07/27/2022 Hg 10 to 8.5, today 8.2 Continue ice pack twice a day No NSAIDs Follow-up with PCP in 1 week Elevated troponin Minimal elevation of 23.6 in setting of trauma. No chest pain. Trend x 1 additional lab repeat Hg 26 no cardiac symptoms Chronic diastolic HF Appears euvolemic. Continue home lasix CKD III Cr 1.53 at baseline (ranges from mid-high 1s). DM II A1c 7.7 Continue home regimen CAD H/o FABIENNE to LAD in 2008 and cardiac cath 06/2010 revealed mild in stent restenosis with 50% stenosis elsewhere Continue statin, Toprol. Holding asa for now given R knee hematoma --> resume aspirin July 27, 2022 HTN Continue home lisinopril, Toprol Dispo: PT recommending patient can return home Discharge to home Follow-up with PCP in 1 week Discharge Plan Discharge Items Patient Disposition: Home - Self-Care Reason For Visit: FALL, RT KNEE INJURY Discharge Diagnosis: Right knee hematoma, status post mechanical fall Activity: Resume your previous activity Activity Comment: Gradually as tolerated, always ambulate carefully Lifting: Wait until after follow-up appointment Exercise/Sports: Wait until after follow-up appointment Driving/Machine Use: No driving Non-emergency contact: Primary Care Provider Call non-emergency contact if: you have any medication questions, your symptoms worsen, your pain is not controlled, your pain is worsening, your pain is unusual for you, your pain is concerning for you and you have a fever Follow-up/Referrals: Janeen Barraza MD [Outside Practitioners] - (Date & Time 07/30/2022 2:00 PM Provider Janeen Barraza MD [facility] ) Diet: Carb Consistent or DM2 and Heart Healthy Addtl Attending Provider Instructions: Hold aspirin until tomorrow. Resume taking aspirin on Thursday, July 27, 2022. Do not take medications under the class of NSAIDs including Advil, naproxen, etc. Consult with your physician if you are having increasing knee pain, swelling, fever, difficulty walking. Apply ice pack on the right knee, twice a day. FOLLOW UP WITH PRIMARY CARE PHYSICIAN OUTLINED ABOVE. Pending Studies at Discharge: No Stand-Alone Forms: My [facility], Smoking Cessation Medications and DC Order Prescriptions: Continued metoprolol succinate 50 mg Tablet Extended Release 24 Hr 50 mg PO QAM rosuvastatin 40 mg Tablet 40 mg PO QPM Vitron-C 65 mg iron- 125 mg Tablet,Delayed Release (Dr/Ec) 1 tab PO QAM nitroglycerin 0.4 mg Tablet, Sublingual 0.4 mg Sublingual UD PRN (Reason: chest pain) pantoprazole 40 mg tablet,delayed release (DR/EC) 40 mg PO QAM cyanocobalamin (vitamin B-12) 1,000 mcg Tablet 1,500 mcg PO DAILY lisinopril 10 mg tablet 10 mg PO QAM glucosamine sulfate [Glucosamine] 500 mg Tablet 1,000 mg PO DAILY sertraline 25 mg tablet 25 mg PO DAILY magnesium 250 mg Tablet 250 mg PO DAILY Tradjenta 5 mg tablet 5 mg PO QAM latanoprost 0.005 % drops 1 drp OPB HS Discontinued aspirin 81 mg Tablet,Delayed Release (Dr/Ec) 81 mg PO QPM Krames/Other Patient Handouts: Managing Type 2 Diabetes, Special Foot Care for Diabetes Admission Data Admit Date/Time: 07/23/22 19:37 Attending Provider: Enoc Barnes Admit Provider: Yao Mayer Primary Care Provider: PCP,NO Other Providers: Chris Roland ; Yao Mayer
--- NOTE | 2022-07-27 14:22 | Discharge Summary ---
Discharge Summary Date of Service July 27, 2022 Notes For Next Care Provider Aspirin held, advised to resume July 28, 2022 Medication Changes From Visit As per above Admission HPI Per Admitting Provider This is an 87-year-old female with PMH of CAD (s/p stent), DM II, HTN, CKD 3 and other medical problems listed below who presents to ED after fall. Was watering plants on porch when her knee buckled and she fell onto R knee. Struck R side of head but denies LOC. No neck or back pain. Has some sharp pain in R knee with movement but is comfortable at rest. No pain where she hit her head. Ambulates with a walker at baseline. Patient lives alone with family at bedside. Last fall was 2 years ago. Denies fever, chills, headache, lightheadedness, CP, SOB, N/V/D, abdominal pain or dysuria. Takes baby aspirin at home. Not on anticoagulation. Admission Exam Per Admitting Provider GENERAL: Alert and oriented x3. NAD, on RA. HEENT: No pallor, no icterus. Pupils equal, round and reactive to light. Oral mucosa moist. Right periorbital ecchymosis noted, nontender eye movement. NECK: No JVD, no neck masses. HEART: S1 and S2 heard. Regular rate and rhythm. No murmur, no gallop. RESPIRATORY SYSTEM: Normal AP diameter. No accessory muscle use. No wheezing, no crackles. ABDOMEN: Soft, bowel sounds present, nontender, no distention. CENTRAL NERVOUS SYSTEM: No facial droop. Speech is clear. Obeys simple commands. Moves extremities. EXTREMITIES: No pitting BLE edema, Small bruise on left medial knee, right knee swollen/tender/ecchymotic/decreased range of motion with passive movement. Small superficial laceration over patella x right with clean dressing. Principal Dx & Hospital Course #1 = Principal Diagnosis (1) Fall: (2) Diabetic ulcer of left foot: (3) Chronic diastolic CHF (congestive heart failure): (4) CKD (chronic kidney disease) stage 3, GFR 30-59 ml/min: (5) Anemia: (6) DM type 2 (diabetes mellitus, type 2): (7) CAD (coronary artery disease): (8) Hypertension: This is an 87-year-old female with PMH of CAD (s/p stent), DM II, HTN, CKD 3 and other medical problems listed below who presents to ED after fall. Fall Right knee hematoma Head CT, cervical spine CT, face CT, CXR, pelvis XR all without acute injury or abnormality (see above) R CT knee with prepatellar soft tissue edema/hemorrhage with a large hematoma within the anteromedial aspect of the distal thigh as above Dr. Roland consulted for further evaluation of knee PT/OT evaluation when appropriate Hgb at baseline ~10 Hold aspirin Pain control, fall precautions NPO @ [place] 07/25 evaluated by Ortho: no surgery recommended hold ASA, resume on 07/27/2022 Hg 10 to 8.5, today 8.2 Continue ice pack twice a day No NSAIDs Follow-up with PCP in 1 week Elevated troponin Minimal elevation of 23.6 in setting of trauma. No chest pain. Trend x 1 additional lab repeat Hg 26 no cardiac symptoms Chronic diastolic HF Appears euvolemic. Continue home lasix CKD III Cr 1.53 at baseline (ranges from mid-high 1s). DM II A1c 7.7 Continue home regimen CAD H/o FABIENNE to LAD in 2008 and cardiac cath 06/2010 revealed mild in stent restenosis with 50% stenosis elsewhere Continue statin, Toprol. Holding asa for now given R knee hematoma --> resume aspirin July 27, 2022 HTN Continue home lisinopril, Toprol Dispo:PT recommending patient can return home Discharge to home Follow-up with PCP in 1 week Discharge Exam General- oriented x 3, not in distress, speaks in sentences with no effort or accessory muscle use Eyes- anicteric Positive periorbital hematoma, right eye No conjunctival hemorrhage No visual changes Neck- no JVD Lungs- clear breath sounds bilaterally, no rales/wheezes Heart- normal rate, regular rhythm; no murmurs Abdomen- normal bowel sounds, nondistended, soft, nontender Extremities-right knee: Significant hematoma covering the whole right knee, no erythema/warmth/tenderness, small blister on the center Left knee: Faint hematoma on the medial aspect, no erythema/warmth/tenderness Neuro- alert, oriented x 3; no gross focal neurologic deficits Skin- warm & dry Updated Medication List Medication Instructions Recorded Confirmed Type iron,carbonyl 65 mg-vitamin C 125 1 tab PO QAM 09/15/18 07/23/22 History mg tablet,delayed release (Vitron-C) metoprolol succinate 50 mg 50 mg PO QAM 09/15/18 07/23/22 History tablet,extended release 24 hr nitroglycerin 0.4 mg sublingual 0.4 mg sublingual UD PRN chest pain 09/15/18 07/23/22 History tablet rosuvastatin 40 mg tablet 40 mg PO QPM 09/15/18 07/23/22 History cyanocobalamin (vitamin B-12) 1,500 mcg PO DAILY 09/20/18 07/23/22 History 1,000 mcg tablet lisinopril 10 mg tablet 10 mg PO QAM 09/20/18 07/23/22 History pantoprazole 40 mg tablet,delayed 40 mg PO QAM 08/01/19 07/23/22 History release linagliptin 5 mg tablet (Tradjenta) 5 mg PO QAM 03/15/21 07/23/22 History glucosamine sulfate 500 mg tablet 1,000 mg PO DAILY 10/25/21 07/23/22 History (Glucosamine) magnesium 250 mg tablet 250 mg PO DAILY 10/25/21 07/23/22 History sertraline 25 mg tablet 25 mg PO DAILY 10/25/21 07/23/22 History latanoprost 0.005 % eye drops 1 drp OPB HS 07/23/22 07/23/22 History Hospital Stay Data Consultations 07/23/22 19:31 Consult Orthopedic Surgery Routine 07/23/22 19:35 ED Decision to Admit Stat Diagnostic Imagining Performed Cervical Spine CT 07/23/22 16:26 CT SCAN OF THE CERVICAL SPINE CLINICAL HISTORY: Trauma. Fall. COMPARISON STUDY: Cervical spine radiographs dated 08/06/2021. Chest CT dated 06/19/2010. TECHNIQUE: CT scan of the cervical spine is performed from the skull base to the upper thoracic spine. Images are reviewed in the axial, sagittal, and coronal planes. IV contrast was not administered for this examination. A dose lowering technique was utilized adhering to the principles of ALARA. FINDINGS: Skeletal structures: The skeletal structures are osteopenic. There is no evidence of fracture or subluxation involving the cervical spine. Mild anterior wedging of C6 is unchanged from previous. Vertebral body height and alignment are otherwise maintained. Anterior osteophytes are seen throughout. The odontoid process and lateral masses are intact. The atlantoaxial articulation is preserved noting advanced productive degenerative changes. The spinous processes appear intact. There are mild chronic superior endplate compression deformities of T2 and T3. There is mild to moderate multilevel cervical spondylosis. Uncovertebral and facet arthropathy contributes to neural foraminal narrowing at several levels. There is chronic posttraumatic deformity of the right clavicle. Intervertebral discs: There is moderate disc space narrowing at C5-C6 and C6-C7. Central canal: Posterior disc osteophyte complexes are seen at all cervical levels between C3-C4 and C6-C7. This may contribute to mild multilevel acquired compromise of the central canal. Soft tissues: The prevertebral and paraspinous soft tissues are within normal limits. There is atherosclerotic calcification of the carotid bulbs. A 1.6 cm peripherally calcified nodule in the left lobe of the thyroid has been present dating back to 2009 and is of doubtful significance. Calvarium: The visualized calvarium at the skull base appears intact. Brain parenchyma: Partially visualized brain parenchyma at the skull base is within normal limits. Sinuses and mastoids: The visualized paranasal sinuses are clear. The mastoid air cells are well pneumatized. Lung apices: Clear as visualized. IMPRESSION: 1. There is no evidence of fracture or subluxation involving the cervical spine. 2. Osteopenia and spondylotic change as above. ACT 112: Negative or not required by law. Electronically signed by: Bobby Nelson M.D. 07/23/2022 6:53 PM Chest X-Ray 07/23/22 16:26 SINGLE VIEW CHEST CLINICAL HISTORY: Fall. Atypical chest pain. FINDINGS: An AP, portable, upright chest radiograph is compared to study dated 10/25/2021. The heart is mildly enlarged noting atherosclerotic calcification of the thoracic aorta. The pulmonary vasculature is noncongested. Chronic interstitial thickening is similar to previous. The lungs and pleural spaces are clear no change in mild bibasilar scarring/atelectasis. No pneumothorax is seen. The skeletal structures are osteopenic. The bony thorax is grossly intact. Cholecystectomy clips are noted in the right upper quadrant. IMPRESSION: No active disease in the chest. ACT 112: Negative or not required by law. Electronically signed by: Bobby Nelson M.D. 07/23/2022 6:[address] 07/23/22 16:26 CT SCAN OF THE BRAIN WITHOUT IV CONTRAST CLINICAL HISTORY: Fall. COMPARISON STUDY: CT of the brain dated 03/15/2021. TECHNIQUE: Unenhanced axial CT scan of the brain is performed from the vertex to the skull base. A dose lowering technique was utilized adhering to the principles of ALARA. FINDINGS: Brain parenchyma: There is age-related involutional change noting mild subcortical and periventricular microangiopathic disease. There is no hemorrhage, mass effect, or evidence of acute territorial ischemia by CT criteria. Maharaj-white matter differentiation is preserved. No extra-axial fluid collection is seen. Ventricles, sulci, cisterns: Prominent secondary to involutional change. Intracranial vasculature: There is atherosclerotic calcification of the cavernous carotid arteries. Calvarium: The skeletal structures are osteopenic. No depressed calvarial fracture is identified. Soft tissues: There is a right frontal scalp hematoma. Sinuses and mastoids: There is opacification of a right anterior ethmoid sinus. The remaining paranasal sinuses are clear. The mastoid air cells are well pneumatized. Orbits: The bony orbits are grossly intact. There are bilateral ocular lens implants. IMPRESSION: There is no hemorrhage, mass effect, or evidence of acute territorial ischemia by CT criteria. ACT 112: Negative or not required by law. Electronically signed by: Bobby Nelson M.D. 07/23/2022 6:20 PM Knee X-Ray 07/23/22 16:26 RIGHT KNEE 2 VIEWS CLINICAL HISTORY: Fall. FINDINGS: AP and crosstable lateral views of the right knee are obtained. No prior studies are available for comparison at the time of dictation. The skeletal structures are osteopenic. No fracture is seen. There is mild to moderate tricompartmental degenerative joint space narrowing. Chondrocalcinosis is seen in the medial and lateral compartments. There are small marginal osteophytes and tiny patellar enthesophytes. Joint effusion is noted. There is marked prepatellar soft tissue swelling. IMPRESSION: 1. Prepatellar soft tissue swelling and joint effusion with no fracture identified. 2. Osteopenia with degenerative change and chondrocalcinosis as above. Electronically signed by: Bobby Nelson M.D. 07/23/2022 6:11 PM Pelvis X-Ray 07/23/22 16:26 SINGLE VIEW PELVIS CLINICAL HISTORY: Fall. Hip pain. FINDINGS: AP view of the pelvis is compared to study dated 07/28/2021. The skeletal structures are osteopenic. There is no radiographic evidence of acute fracture involving the hips or bony pelvis. Moderate arthritic change and joint space narrowing is seen in both hips. Degenerative sclerosis is seen in the sacroiliac joints and pubic symphysis. Lumbosacral spondylosis is partially visualized. A phlebolith is again seen in left hemipelvis. The overlying soft tissues are normal as imaged. IMPRESSION: No acute bony abnormality is identified. Electronically signed by: Bobby Nelson M.D. 07/23/2022 6:[address] 07/23/22 17:59 CT SCAN OF THE FACIAL BONES WITHOUT IV CONTRAST CLINICAL HISTORY: Fall. Facial injury. COMPARISON STUDY: CT of the brain performed concurrently on 07/23/2022. TECHNIQUE: High-resolution CT scan of the facial bones is performed. Images are reviewed in the axial, sagittal, and coronal planes. IV contrast was not administered for this examination. A dose lowering technique was utilized adhering to the principles of ALARA. CT DOSE: 1002.77 mGy.cm FINDINGS: The skeletal structures are osteopenia. There is no evidence of facial bone fracture. The bony orbits are intact and the orbital contents are within normal limits noting bilateral ocular lens implants. The zygomatic arches, nasal bones, and pterygoid plates are preserved. The maxilla and mandible are intact. Degenerative change is noted in the temporomandibular joints. There are no layering blood products within the paranasal sinuses. There is opacification of the right ethmoid sinus. The remaining paranasal sinuses are clear. The mastoid air cells are well pneumatized. The visualized calvarium and upper cervical spine are maintained. Partially imaged brain parenchyma is within normal limits age related involutional change. There is a right frontal scalp hematoma. Several dental caries are identified. There are punctate calcified sialoliths in the left parotid gland. IMPRESSION: 1. There is no evidence of facial bone fracture. 2. Several dental caries are identified. Nonemergent follow-up with dental history is recommended. ACT 112: Negative or not required by law. Electronically signed by: Bobby Nelson M.D. 07/23/2022 6:[address] 07/23/22 18:18 CT SCAN OF THE RIGHT KNEE WITHOUT IV CONTRAST CLINICAL HISTORY: Fall with right knee injury. COMPARISON STUDY: Radiographs of the right knee dated 07/23/2022. TECHNIQUE: CT scan of the right knee is performed from the distal femoral shaft to the proximal tibia and fibula. Images are reviewed in the axial, sagittal, and coronal planes. IV contrast was not administered for this examination. A dose lowering technique was utilized adhering to the principles of ALARA. The examination is modestly degraded by motion artifact. CT DOSE: 396.98 mGy.cm FINDINGS: The skeletal structures are osteopenic. No fracture is seen. Mild to moderate tricompartmental degenerative change is noted. There is chondrocalcinosis within the medial and lateral compartments. A small joint effusion is observed. There is prepatellar soft tissue edema/hemorrhage. A large soft tissue hematoma is partially visualized within the anteromedial soft tissues of the distal thigh. This measures at least 7 x 7 x 4.5 cm in dimension. There is generalized atrophy of the regional musculature. Atherosclerotic calcification is seen in the popliteal artery. IMPRESSION: 1. No fracture is identified. 2. There is prepatellar soft tissue edema/hemorrhage with a large hematoma within the anteromedial aspect of the distal thigh as above. 3. Degenerative change and chondrocalcinosis as above. ACT 112: Negative or not required by law. Electronically signed by: Bboby Nelson M.D. 07/23/2022 6:58 PM Pending Results Patient Have Any Pending Studies at Discharge: No Discharge Instructions Given to Patient (Per Discharging Provider) Hold aspirin until tomorrow. Resume taking aspirin on Thursday, July 27, 2022. Do not take medications under the class of NSAIDs including Advil, naproxen, etc. Consult with your physician if you are having increasing knee pain, swelling, fever, difficulty walking. Apply ice pack on the right knee, twice a day. FOLLOW UP WITH PRIMARY CARE PHYSICIAN OUTLINED ABOVE. Total Time Total Time Spent Total Time Spent (In Minutes): >30 minutes
== END 2022-07-25 14:48 | disposition home or self-care (01) | DRG 605 ==
LOC: ED 15:56 → SUATTDRO 19:37 → 2N 19:37